=== PATIENT | male | born 1980 | race Caucasian/White ===

== ENCOUNTER 2016-12-10 11:29 | Emergency (ER) | payer MEDICARE, MEDICAID ==
[2016-12-10] MEDS ORDERED: INDOMETHACIN 50 MG CAPSULE PO ONE (11:43)
[2016-12-10] MEDS ORDERED: ONDANSETRON HCL 8 MG TABLET PO ONE (11:43)
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
[2016-12-10 12:00] LABS: ABSOLUTE BASOPHILS # (AUTO) 0.1 10^3/uL (0.0-0.2); ABSOLUTE EOSINOPHILS # (AUTO) 0.3 10^3/uL (0.0-0.6); ABSOLUTE LYMPHOCYTES (AUTO) 2.3 10^3/uL (0.5-4.7); ABSOLUTE MONOCYTES (AUTO) 0.8 10^3/uL (0.1-1.4); EOSINOPHILS % (AUTO) 3.4 % (0-6); HEMATOCRIT 42.4 % (37.9-51.0); HEMOGLOBIN 14.7 g/dL (13.5-17.0); HGB HCT DIFFERENCE 1.7; LYMPHOCYTES % (AUTO) 31.4 % (13-45); MEAN CORPUSCULAR HEMOGLOBIN 34.4 pg (27.0-33.4); MEAN CORPUSCULAR HGB CONC 34.6 g/dL (32.0-36.0); MEAN CORPUSCULAR VOLUME 100 fl (80-97); MONOCYTES % (AUTO) 10.1 % (3-13); RED BLOOD COUNT 4.26 10^6/uL (4.35-5.55); RED CELL DISTRIBUTION WIDTH 14.4 % (11.5-14.0); SEGMENTED NEUTROPHILS % (AUTO) 54.1 % (42-78); WHITE BLOOD COUNT 7.4 10^3/uL (4.0-10.5)
[2016-12-10 12:18] LABS: ALANINE AMINOTRANSFERASE 45 U/L (21-72); ALBUMIN 4.1 g/dL (3.5-5.0); ALKALINE PHOSPHATASE 86 U/L (38-126); ANION GAP 12 (5-19); ASPARTATE AMINO TRANSFERASE 25 U/L (17-59); BILIRUBIN,TOTAL 0.5 mg/dL (0.2-1.3); BLOOD UREA NITROGEN 10 mg/dL (7-20); CALCIUM 9.6 mg/dL (8.4-10.2); CARBON DIOXIDE 24 mmol/L (22-30); CHLORIDE 104 mmol/L (98-107); CREATININE RESULT 1.03 mg/dL (0.52-1.25); GLUCOSE 110 mg/dL (75-110); POTASSIUM 4.1 mmol/L (3.6-5.0); SODIUM 139.5 mmol/L (137-145)
[2016-12-10] MEDS ORDERED: HYDROMORPHONE HCL INJ/PF 2 MG/ML AMPULE IV ONE (12:26)
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
[2016-12-10] MEDS ORDERED: KETOROLAC TROMETHAMINE 60 MG/2 ML SDV IM ONE (12:58)
[2016-12-10 13:54] VITALS: BP 151/96
== END 2016-12-10 13:54 | disposition home or self-care (01) ==
LOC: ER 11:29
DX: M25.531 Pain in right wrist (principal); M79.89 Other specified soft tissue disorders; M79.601 Pain in right arm; F17.210 Nicotine dependence, cigarettes, uncomplicated
CPT/HCPCS: 99283; 96372; 36415; 84550; 85025; 80053; 73120; 73110; J1885; A9270 ×2; J3490; S0119

== ENCOUNTER 2017-07-17 18:08 | Emergency (ER) | payer MEDICARE, MEDICAID ==
[2017-07-17] MEDS ORDERED: KETOROLAC TROMETHAMINE INJ/PF 30 MG/1 ML SDV IV ONE (18:16)
[2017-07-17 18:41] LABS: ABSOLUTE BASOPHILS # (AUTO) 0.1 10^3/uL (0.0-0.2); ABSOLUTE EOSINOPHILS # (AUTO) 0.1 10^3/uL (0.0-0.6); ABSOLUTE LYMPHOCYTES (AUTO) 1.5 10^3/uL (0.5-4.7); ABSOLUTE MONOCYTES (AUTO) 0.8 10^3/uL (0.1-1.4); BASOPHILS % (AUTO) 0.8 % (0-2); EOSINOPHILS % (AUTO) 1.1 % (0-6); HEMATOCRIT 42.6 % (37.9-51.0); HEMOGLOBIN 15.4 g/dL (13.5-17.0); HGB HCT DIFFERENCE 3.6; LYMPHOCYTES % (AUTO) 11.9 % (13-45); MEAN CORPUSCULAR HEMOGLOBIN 35.4 pg (27.0-33.4); MEAN CORPUSCULAR HGB CONC 36.2 g/dL (32.0-36.0); MEAN CORPUSCULAR VOLUME 98 fl (80-97); MONOCYTES % (AUTO) 6.2 % (3-13); RED BLOOD COUNT 4.36 10^6/uL (4.35-5.55); RED CELL DISTRIBUTION WIDTH 13.4 % (11.5-14.0); WHITE BLOOD COUNT 12.6 10^3/uL (4.0-10.5)
[2017-07-17] MEDS: NORMAL SALINE 1000 ML 1,000 ML IV PRN ×2 (18:44→19:39)
[2017-07-17 19:04] LABS: ALANINE AMINOTRANSFERASE 63 U/L (21-72); ALBUMIN 4.4 g/dL (3.5-5.0); ALKALINE PHOSPHATASE 90 U/L (38-126); ANION GAP 12 (5-19); ASPARTATE AMINO TRANSFERASE 34 U/L (17-59); BILIRUBIN,DIRECT 0.4 mg/dL (0.0-0.4); BILIRUBIN,TOTAL 0.8 mg/dL (0.2-1.3); BLOOD UREA NITROGEN 15 mg/dL (7-20); CARBON DIOXIDE 26 mmol/L (22-30); CHLORIDE 99 mmol/L (98-107); CREATININE RESULT 0.88 mg/dL (0.52-1.25); GLUCOSE 125 mg/dL (75-110); LIPASE 90.8 U/L (23-300); POTASSIUM 4.3 mmol/L (3.6-5.0); SODIUM 137.3 mmol/L (137-145); TOTAL PROTEIN 7.1 g/dL (6.3-8.2); URIC ACID 10.9 mg/dL (3.5-8.5)
[2017-07-17] MEDS ORDERED: MORPHINE SULFATE 10 MG/ML INJ IV ONE (19:22)
[2017-07-17] MEDS ORDERED: ONDANSETRON HCL INJ/PF 4 MG/2 ML SDV IV ONE (19:22)
[2017-07-17 20:10] LABS: APPEARANCE,URINE CLEAR; BILIRUBIN,URINE NEGATIVE (NEGATIVE); GLUCOSE, URINE NEGATIVE (NEGATIVE); KETONES,URINE NEGATIVE (NEGATIVE); LEUKOCYTE ESTERASE,URINE NEGATIVE (NEGATIVE); NITRITE,URINE NEGATIVE (NEGATIVE); PROTEIN,URINE NEGATIVE (NEGATIVE); URINE SPECIFIC GRAVITY 1.023; UROBILINOGEN,URINE NEGATIVE mg/dL (<2.0)
--- NOTE | 2017-07-17 20:10 | RADIOLOGY REPORT (SQ) ---
EXAM DESCRIPTION: CHEST PA/LAT COMPLETED DATE/TIME: 07/17/2017 7:12 pm REASON FOR STUDY: fever COMPARISON: March 2016 EXAM PARAMETERS: NUMBER OF VIEWS: two views TECHNIQUE: Digital Frontal and Lateral radiographic views of the chest acquired. RADIATION DOSE: NA LIMITATIONS: none FINDINGS: LUNGS AND PLEURA: No opacities, masses or pneumothorax. No pleural effusion. MEDIASTINUM AND HILAR STRUCTURES: No masses or contour abnormalities. HEART AND VASCULAR STRUCTURES: Heart normal size. No evidence for failure. BONES: No acute findings. HARDWARE: None in the chest. OTHER: No other significant finding. IMPRESSION: NO SIGNIFICANT RADIOGRAPHIC FINDING IN THE CHEST. TECHNICAL DOCUMENTATION: JOB ID: [id number] [employer]- All Rights Reserved
[2017-07-17] MEDS ORDERED: PREDNISONE 20 MG TABLET PO ONE (20:23)
[2017-07-17] MEDS ORDERED: OXYCODONE-ACETAMINOPHEN 5-325 MG TABLET PO ONE (20:23)
[2017-07-17 20:33] LABS: URINE BARBITURATES SCREEN NEGATIVE; URINE METHADONE SCREEN NEGATIVE; URINE OPIATES LOW UNCONFIRMED POSITIVE; URINE PHENCYCLIDINE SCREEN NEGATIVE
[2017-07-17 21:01] VITALS: BP 139/77
[2017-07-17] MEDS ORDERED: HYDROCODONE/ACETAMINOPHEN 5-325 MG 6 TAB/DSPK PO PRN (21:15)
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
== END 2017-07-17 21:18 | disposition home or self-care (01) ==
LOC: ER 18:08
DX: M10.9 Gout, unspecified (principal); R50.9 Fever, unspecified; I10 Essential (primary) hypertension; F17.200 Nicotine dependence, unspecified, uncomplicated; Z88.8 Allergy status to other drugs, medicaments and biological substances; Z88.1 Allergy status to other antibiotic agents
CPT/HCPCS: 99284; 96361; 96374; 96375; 36415; 87040; 83690; 84550; 85025; 80053; 81001; 80307; 83605; 71020; J1885; J2270; A9270 ×2; J2405; J7030; J7512

== ENCOUNTER → 2017-10-03 | Outpatient (CLI) | payer MEDICARE, MEDICAID ==
[2017-10-03 09:20] LABS: ABSOLUTE EOSINOPHILS # (AUTO) 0.2 10^3/uL (0.0-0.6); ABSOLUTE LYMPHOCYTES (AUTO) 1.5 10^3/uL (0.5-4.7); ABSOLUTE MONOCYTES (AUTO) 0.5 10^3/uL (0.1-1.4); ABSOLUTE NEUT (AUTO) 4.3 10^3/uL (1.7-8.2); BASOPHILS % (AUTO) 0.6 % (0-2); EOSINOPHILS % (AUTO) 3.3 % (0-6); HEMATOCRIT 43.6 % (37.9-51.0); HEMOGLOBIN 15.6 g/dL (13.5-17.0); HGB HCT DIFFERENCE 3.2; LYMPHOCYTES % (AUTO) 23.1 % (13-45); MEAN CORPUSCULAR HEMOGLOBIN 34.9 pg (27.0-33.4); MEAN CORPUSCULAR HGB CONC 35.9 g/dL (32.0-36.0); MEAN CORPUSCULAR VOLUME 97 fl (80-97); MONOCYTES % (AUTO) 7.1 % (3-13); RED BLOOD COUNT 4.48 10^6/uL (4.35-5.55); RED CELL DISTRIBUTION WIDTH 14.4 % (11.5-14.0); SEGMENTED NEUTROPHILS % (AUTO) 65.9 % (42-78); WHITE BLOOD COUNT 6.5 10^3/uL (4.0-10.5)
[2017-10-03 09:35] LABS: ALANINE AMINOTRANSFERASE 63 U/L (21-72); ALBUMIN 4.2 g/dL (3.5-5.0); ALKALINE PHOSPHATASE 85 U/L (38-126); ANION GAP 12 (5-19); ASPARTATE AMINO TRANSFERASE 30 U/L (17-59); BILIRUBIN,DIRECT 0.5 mg/dL (0.0-0.4); BILIRUBIN,TOTAL 0.8 mg/dL (0.2-1.3); BLOOD UREA NITROGEN 12 mg/dL (7-20); CALCIUM 9.9 mg/dL (8.4-10.2); CARBON DIOXIDE 28 mmol/L (22-30); CHLORIDE 95 mmol/L (98-107); CHOLESTEROL 219.54 mg/dL (0-200); CREATININE RESULT 0.91 mg/dL (0.52-1.25); Direct HDL 38 mg/dL (>40); GLUCOSE 98 mg/dL (75-110); POTASSIUM 4.3 mmol/L (3.6-5.0); SODIUM 134.7 mmol/L (137-145); TRIGLYCERIDES 313 mg/dL (<150)
[2017-10-03 09:46] LABS: DIRECT LDL 138 mg/dL (<100)
[2017-10-03 09:48] LABS: VLDL CHOLESTEROL 62.6 mg/dL (10-31)
== END ==
LOC: OD 07:59
PROVIDERS: ATTEND Nurse Practitioner Psychiatric/Mental Health
DX: F31.32 Bipolar disorder, current episode depressed, moderate (principal)
CPT/HCPCS: 36415; 80053; 80061; 83036; 84443; 85025

== ENCOUNTER 2018-04-14 07:38 | Emergency (ER) | payer MEDICARE, MEDICAID ==
[2018-04-14] MEDS ORDERED: OXYCODONE HCL IR 5 MG TABLET PO ONE (08:30)
[2018-04-14] MEDS ORDERED: PREDNISONE 20 MG TABLET PO ONE (08:30)
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
[2018-04-14 09:48] VITALS: BP 138/94
== END 2018-04-14 09:46 | disposition home or self-care (01) ==
LOC: ER 07:38
DX: M10.9 Gout, unspecified (principal); M79.671 Pain in right foot; F17.200 Nicotine dependence, unspecified, uncomplicated; I10 Essential (primary) hypertension
CPT/HCPCS: 99283; 36415; 84550; A9270

== ENCOUNTER → 2018-10-15 | Outpatient (CLI) | payer MEDICARE, MEDICAID ==
[2018-10-15 08:45] LABS: ABSOLUTE BASOPHILS # (AUTO) 0.1 10^3/uL (0.0-0.2); ABSOLUTE EOSINOPHILS # (AUTO) 0.3 10^3/uL (0.0-0.6); ABSOLUTE LYMPHOCYTES (AUTO) 2.1 10^3/uL (0.5-4.7); ABSOLUTE MONOCYTES (AUTO) 0.4 10^3/uL (0.1-1.4); ABSOLUTE NEUT (AUTO) 3.7 10^3/uL (1.7-8.2); EOSINOPHILS % (AUTO) 4.7 % (0-6); HEMATOCRIT 43.5 % (37.9-51.0); LYMPHOCYTES % (AUTO) 31.8 % (13-45); MEAN CORPUSCULAR HEMOGLOBIN 34.2 pg (27.0-33.4); MEAN CORPUSCULAR HGB CONC 34.4 g/dL (32.0-36.0); MEAN CORPUSCULAR VOLUME 99 fl (80-97); PLATELET COUNT 216 10^3/uL (150-450); RED BLOOD COUNT 4.38 10^6/uL (4.35-5.55); RED CELL DISTRIBUTION WIDTH 14.1 % (11.5-14.0); SEGMENTED NEUTROPHILS % (AUTO) 56.5 % (42-78); TOTAL CELLS COUNTED % (AUTO) 100 %; WHITE BLOOD COUNT 6.6 10^3/uL (4.0-10.5)
[2018-10-15 09:22] LABS: ALANINE AMINOTRANSFERASE 36 U/L (21-72); ALBUMIN 3.9 g/dL (3.5-5.0); ALKALINE PHOSPHATASE 79 U/L (38-126); ANION GAP 7 (5-19); ASPARTATE AMINO TRANSFERASE 28 U/L (17-59); BILIRUBIN,DIRECT 0.4 mg/dL (0.0-0.4); BILIRUBIN,TOTAL 0.5 mg/dL (0.2-1.3); BLOOD UREA NITROGEN 10 mg/dL (7-20); CALCIUM 9.3 mg/dL (8.4-10.2); CARBON DIOXIDE 29 mmol/L (22-30); CHLORIDE 104 mmol/L (98-107); CHOLESTEROL 182.15 mg/dL (0-200); GLUCOSE 111 mg/dL (75-110); POTASSIUM 4.2 mmol/L (3.6-5.0); SODIUM 140.2 mmol/L (137-145); TOTAL PROTEIN 6.6 g/dL (6.3-8.2); TRIGLYCERIDES 265 mg/dL (<150)
[2018-10-15 09:40] LABS: DIRECT LDL 126 mg/dL (<100)
== END ==
LOC: OD 08:05
PROVIDERS: ATTEND Nurse Practitioner Psychiatric/Mental Health
DX: F31.32 Bipolar disorder, current episode depressed, moderate (principal); Z79.899 Other long term (current) drug therapy
CPT/HCPCS: 36415; 80053; 80061; 83036; 84443; 85025

== ENCOUNTER 2018-10-19 10:51 | Emergency (ER) | payer MEDICARE, MEDICAID ==
[2018-10-19] MEDS ORDERED: ACETAMINOPHEN 325 MG TABLET PO ONE (11:20)
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
--- NOTE | 2018-10-19 11:52 | RADIOLOGY REPORT (SQ) ---
EXAM DESCRIPTION: FOOT LEFT COMPLETE COMPLETED DATE/TIME: 10/19/2018 11:41 am REASON FOR STUDY: pain and swelling yesterday tripped over toy COMPARISON: Left ankle films same date NUMBER OF VIEWS: Three views. TECHNIQUE: AP, lateral and oblique radiographic images acquired of the left foot. LIMITATIONS: None. FINDINGS: MINERALIZATION: Normal. BONES: No acute fracture or dislocation. No worrisome bone lesions. JOINTS: Small tibiotalar joint effusion SOFT TISSUES: No soft tissue swelling. No foreign body. On the lateral view, a deep crack in the sk in over the dorsal heel is present OTHER: No other significant finding. IMPRESSION: No acute fracture or malalignment TECHNICAL DOCUMENTATION: JOB ID: [id number] [employer]- All Rights Reserved Reading location - IP/workstation name: [email or web address]
[2018-10-19 12:17] VITALS: BP 152/101
== END 2018-10-19 12:18 | disposition home or self-care (01) ==
LOC: ER 10:51
PROC: 2W3RX1Z Immobilization of Left Lower Leg using Splint (ICD-10-PCS; principal; 2018-10-19)
DX: S93.402A Sprain of unspecified ligament of left ankle, initial encounter (principal); S99.912A Unspecified injury of left ankle, initial encounter; M79.89 Other specified soft tissue disorders; M25.572 Pain in left ankle and joints of left foot; W22.8XXA Striking against or struck by other objects, initial encounter; F17.210 Nicotine dependence, cigarettes, uncomplicated; I10 Essential (primary) hypertension
CPT/HCPCS: 99406; 99284; 73610; 73630; 29515; L1902; A9270

== ENCOUNTER 2018-12-10 07:16 | Emergency (ER) | payer MEDICARE, MEDICAID ==
[2018-12-10 08:49] LABS: ABSOLUTE BASOPHILS # (AUTO) 0.1 10^3/uL (0.0-0.2); ABSOLUTE EOSINOPHILS # (AUTO) 0.2 10^3/uL (0.0-0.6); ABSOLUTE LYMPHOCYTES (AUTO) 2.4 10^3/uL (0.5-4.7); ABSOLUTE MONOCYTES (AUTO) 0.5 10^3/uL (0.1-1.4); ABSOLUTE NEUT (AUTO) 4.5 10^3/uL (1.7-8.2); BASOPHILS % (AUTO) 0.8 % (0-2); HEMATOCRIT 42.3 % (37.9-51.0); HEMOGLOBIN 14.7 g/dL (13.5-17.0); LYMPHOCYTES % (AUTO) 30.9 % (13-45); MEAN CORPUSCULAR HEMOGLOBIN 33.6 pg (27.0-33.4); MEAN CORPUSCULAR HGB CONC 34.7 g/dL (32.0-36.0); MEAN CORPUSCULAR VOLUME 97 fl (80-97); MONOCYTES % (AUTO) 6.7 % (3-13); PLATELET COUNT 193 10^3/uL (150-450); RED BLOOD COUNT 4.36 10^6/uL (4.35-5.55); RED CELL DISTRIBUTION WIDTH 14.8 % (11.5-14.0); SEGMENTED NEUTROPHILS % (AUTO) 58.6 % (42-78); TOTAL CELLS COUNTED % (AUTO) 100 %; WHITE BLOOD COUNT 7.7 10^3/uL (4.0-10.5)
[2018-12-10] MEDS ORDERED: NORMAL SALINE 1000 ML 1,000 ML IV ONE (08:49)
[2018-12-10 09:32] LABS: APPEARANCE,URINE CLEAR; BILIRUBIN,URINE NEGATIVE (NEGATIVE); COLOR,URINE YELLOW; GLUCOSE, URINE NEGATIVE (NEGATIVE); KETONES,URINE NEGATIVE (NEGATIVE); LEUKOCYTE ESTERASE,URINE NEGATIVE (NEGATIVE); NITRITE,URINE NEGATIVE (NEGATIVE); PROTEIN,URINE NEGATIVE (NEGATIVE); URINE SPECIFIC GRAVITY 1.021
[2018-12-10 10:11] LABS: ALANINE AMINOTRANSFERASE 89 U/L (21-72); ALBUMIN 3.8 g/dL (3.5-5.0); ALKALINE PHOSPHATASE 67 U/L (38-126); ANION GAP 7 (5-19); ASPARTATE AMINO TRANSFERASE 45 U/L (17-59); BILIRUBIN,DIRECT 0.2 mg/dL (0.0-0.4); BILIRUBIN,TOTAL 0.6 mg/dL (0.2-1.3); BLOOD UREA NITROGEN 14 mg/dL (7-20); CARBON DIOXIDE 29 mmol/L (22-30); CHLORIDE 103 mmol/L (98-107); GLUCOSE 95 mg/dL (75-110); POTASSIUM 4.2 mmol/L (3.6-5.0); SODIUM 138.9 mmol/L (137-145); TOTAL PROTEIN 5.8 g/dL (6.3-8.2)
[2018-12-10 11:11] VITALS: BP 139/93
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
== END 2018-12-10 11:13 | disposition home or self-care (01) ==
LOC: ER 07:16
DX: R19.7 Diarrhea, unspecified (principal); R10.9 Unspecified abdominal pain; F17.210 Nicotine dependence, cigarettes, uncomplicated; I10 Essential (primary) hypertension
CPT/HCPCS: 99284; 36415; 87045; 89055; 87205; 85025; 80053; 81001; 87493; J7030; 96360

== ENCOUNTER 2018-12-23 19:48 | Inpatient (IN) | payer MEDICARE, MEDICAID ==
[2018-12-23] MEDS ORDERED: RINGERS SOLUTION,LACTATED 1,000 ML IV ONE (20:21)
[2018-12-23] MEDS ORDERED: ONDANSETRON HCL INJ/PF 4 MG/2 ML SDV IV ONE (20:21)
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
[2018-12-23 20:50] LABS: ABSOLUTE EOSINOPHILS # (AUTO) 0.1 10^3/uL (0.0-0.6); ABSOLUTE LYMPHOCYTES (AUTO) 0.7 10^3/uL (0.5-4.7); ABSOLUTE MONOCYTES (AUTO) 0.5 10^3/uL (0.1-1.4); BASOPHILS % (AUTO) 0.4 % (0-2); EOSINOPHILS % (AUTO) 0.7 % (0-6); HEMATOCRIT 42.3 % (37.9-51.0); HEMOGLOBIN 15.4 g/dL (13.5-17.0); LYMPHOCYTES % (AUTO) 8.8 % (13-45); MEAN CORPUSCULAR HEMOGLOBIN 34.5 pg (27.0-33.4); MEAN CORPUSCULAR HGB CONC 36.5 g/dL (32.0-36.0); MEAN CORPUSCULAR VOLUME 95 fl (80-97); MONOCYTES % (AUTO) 5.5 % (3-13); PLATELET COUNT 219 10^3/uL (150-450); RED BLOOD COUNT 4.47 10^6/uL (4.35-5.55); RED CELL DISTRIBUTION WIDTH 14.7 % (11.5-14.0); SEGMENTED NEUTROPHILS % (AUTO) 84.6 % (42-78); TOTAL CELLS COUNTED % (AUTO) 100 %; WHITE BLOOD COUNT 8.2 10^3/uL (4.0-10.5)
[2018-12-23 21:01] LABS: ALANINE AMINOTRANSFERASE 71 U/L (21-72); ALBUMIN 4.5 g/dL (3.5-5.0); ALKALINE PHOSPHATASE 98 U/L (38-126); ANION GAP 11 (5-19); ASPARTATE AMINO TRANSFERASE 61 U/L (17-59); BILIRUBIN,DIRECT 0.2 mg/dL (0.0-0.4); BILIRUBIN,TOTAL 0.7 mg/dL (0.2-1.3); BLOOD UREA NITROGEN 14 mg/dL (7-20); CALCIUM 9.8 mg/dL (8.4-10.2); CARBON DIOXIDE 27 mmol/L (22-30); CHLORIDE 91 mmol/L (98-107); GLUCOSE 116 mg/dL (75-110); LIPASE 126.4 U/L (23-300); POTASSIUM 4.5 mmol/L (3.6-5.0); SODIUM 128.8 mmol/L (137-145)
[2018-12-23 21:09] LABS: APPEARANCE,URINE CLEAR; BILIRUBIN,URINE MODERATE (NEGATIVE); COLOR,URINE AMBER; GLUCOSE, URINE NEGATIVE (NEGATIVE); KETONES,URINE NEGATIVE (NEGATIVE); LEUKOCYTE ESTERASE,URINE NEGATIVE (NEGATIVE); NITRITE,URINE NEGATIVE (NEGATIVE); PROTEIN,URINE 100 mg/dL (NEGATIVE); URINE SPECIFIC GRAVITY 1.028
[2018-12-23] MEDS ORDERED: CIPROFLOXACIN HCL 500 MG TABLET PO ONE (21:34)
[2018-12-23] MEDS ORDERED: NORMAL SALINE 1000 ML 1,000 ML IV ONE (21:34)
[2018-12-23 22:21] LABS: ANION GAP 7 (5-19); BLOOD UREA NITROGEN 13 mg/dL (7-20); CALCIUM 9.1 mg/dL (8.4-10.2); CARBON DIOXIDE 29 mmol/L (22-30); CHLORIDE 93 mmol/L (98-107); GLUCOSE 111 mg/dL (75-110); POTASSIUM 4.2 mmol/L (3.6-5.0); SODIUM 128.5 mmol/L (137-145)
[2018-12-23] MEDS ORDERED: PROCHLORPERAZINE EDISYLATE INJ 10 MG/2 ML VIAL IV ONE (22:28)
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
[2018-12-23] MEDS ORDERED: LABETALOL HCL INJ 20 MG/4 ML DISP.SYRIN IV PRN (23:08)
[2018-12-23] MEDS ORDERED: NICOTINE 21 MG/24 HR PATCH.TD24 TD PRN (23:08)
[2018-12-23] MEDS ORDERED: CHLORPROMAZINE HCL INJ 25 MG/1 ML AMPULE IV PRN (23:08)
[2018-12-23] MEDS ORDERED: ACETAMINOPHEN 650 MG SUPP.RECT PR PRN (23:08)
[2018-12-23] MEDS ORDERED: FAMOTIDINE INJ/PF 20 MG/2 ML SDV IV ONE (23:30)
[2018-12-24] MEDS ORDERED: FAMOTIDINE INJ/PF 20 MG/2 ML SDV IV ONE (01:39)
[2018-12-24] MEDS: MORPHINE SULFATE 10 MG/ML INJ IV PRN ×7 (01:42→22:08)
[2018-12-24] MEDS: DEXTROSE 5%-LACTATED RINGERS 1,000 ML IV PRN ×2 (01:50→16:15)
[2018-12-24 02:59] LABS: APPEARANCE,URINE CLEAR; BILIRUBIN,URINE NEGATIVE (NEGATIVE); COLOR,URINE YELLOW; GLUCOSE, URINE NEGATIVE (NEGATIVE); KETONES,URINE NEGATIVE (NEGATIVE); LEUKOCYTE ESTERASE,URINE NEGATIVE (NEGATIVE); NITRITE,URINE NEGATIVE (NEGATIVE); PROTEIN,URINE NEGATIVE (NEGATIVE); URINE SPECIFIC GRAVITY 1.011
[2018-12-24 04:29] LABS: URINE AMPHETAMINES SCREEN NEGATIVE; URINE BARBITURATES SCREEN NEGATIVE; URINE COCAINE SCREEN NEGATIVE; URINE MARIJUANA (THC) SCREEN NEGATIVE; URINE METHADONE SCREEN NEGATIVE; URINE PHENCYCLIDINE SCREEN NEGATIVE
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
[2018-12-24 04:37] LABS: URINE BENZODIAZEPINES SCREEN UNCONFIRMED POSITIVE
[2018-12-24] MEDS: HEPARIN SOD (PORCINE) 5,000 UNIT/ML 1 ML SYRINGE SUBCUT SCH ×3 (06:20→22:11)
[2018-12-24 08:10] LABS: ABSOLUTE EOSINOPHILS # (AUTO) 0.1 10^3/uL (0.0-0.6); ABSOLUTE LYMPHOCYTES (AUTO) 1.1 10^3/uL (0.5-4.7); ABSOLUTE MONOCYTES (AUTO) 0.4 10^3/uL (0.1-1.4); ABSOLUTE NEUT (AUTO) 2.9 10^3/uL (1.7-8.2); BASOPHILS % (AUTO) 0.4 % (0-2); EOSINOPHILS % (AUTO) 2.8 % (0-6); HEMATOCRIT 33.6 % (37.9-51.0); LYMPHOCYTES % (AUTO) 23.1 % (13-45); MEAN CORPUSCULAR HEMOGLOBIN 33.9 pg (27.0-33.4); MEAN CORPUSCULAR HGB CONC 35.6 g/dL (32.0-36.0); MEAN CORPUSCULAR VOLUME 95 fl (80-97); MONOCYTES % (AUTO) 9.6 % (3-13); PLATELET COUNT 153 10^3/uL (150-450); RED BLOOD COUNT 3.53 10^6/uL (4.35-5.55); RED CELL DISTRIBUTION WIDTH 14.8 % (11.5-14.0); SEGMENTED NEUTROPHILS % (AUTO) 64.1 % (42-78); TOTAL CELLS COUNTED % (AUTO) 100 %; WHITE BLOOD COUNT 4.6 10^3/uL (4.0-10.5)
[2018-12-24 08:28] LABS: ALANINE AMINOTRANSFERASE 50 U/L (21-72); ALBUMIN 3.3 g/dL (3.5-5.0); ALKALINE PHOSPHATASE 65 U/L (38-126); ANION GAP 8 (5-19); ASPARTATE AMINO TRANSFERASE 32 U/L (17-59); BILIRUBIN,DIRECT 0.3 mg/dL (0.0-0.4); BILIRUBIN,TOTAL 0.5 mg/dL (0.2-1.3); BLOOD UREA NITROGEN 10 mg/dL (7-20); CALCIUM 8.5 mg/dL (8.4-10.2); CARBON DIOXIDE 29 mmol/L (22-30); CHLORIDE 94 mmol/L (98-107); GLUCOSE 98 mg/dL (75-110); LIPASE 58.4 U/L (23-300); PHOSPHORUS 3.2 mg/dL (2.5-4.5); POTASSIUM 4.1 mmol/L (3.6-5.0); SODIUM 130.6 mmol/L (137-145); TOTAL PROTEIN 5.3 g/dL (6.3-8.2)
[2018-12-24 08:32] LABS: AMYLASE < 30 U/L (30-110)
[2018-12-24] MEDS: FAMOTIDINE INJ/PF 20 MG/2 ML SDV IV SCH ×2 (09:50→22:06)
[2018-12-24] MEDS: CIPROFLOXACIN 400 MG/D5W RTU 400 MG/200 ML RTUPB IV SCH ×2 (10:53→22:07)
[2018-12-24] MEDS: METRONIDAZOLE 500 MG/NS RTU 500 MG/100 ML RTUPB IV SCH ×2 (12:26→19:54)
--- NOTE | 2018-12-24 16:21 | PDOC PROGRESS REPORT ---
Subjective Progress Note for:: 12/24/18 Subjective:: This is 38 years old male patient who presented with chief complaint of frequent watery diarrhea for the last 3 months. Patient denied any similar illness in the family. He also denies drinking well water. His stool and blood culture are negative. His blood work shows work shows hyponatremia of sodium 128. His past medical history significant for hypertension, obesity Legg- Perthes disease. This morning I seen patient resting in bed he complains of abdominal pain and still has watery diarrhea. Reason For Visit: INTRACTABLE DIARRHEA WITH VOMITING Physical Exam Vital Signs: Temp Pulse Resp BP Pulse Ox 97.5 F 85 16 136/82 H 97 12/24/18 15:33 12/24/18 15:33 12/24/18 15:33 12/24/18 15:33 12/24/18 15:33 Intake & Output 12/23/18 12/24/18 12/25/18 06:59 06:59 06:59 Intake Total 2463 780 Balance 2463 780 Weight 110 kg General appearance: PRESENT: obese Head exam: PRESENT: atraumatic Mouth exam: PRESENT: moist Neck exam: ABSENT: carotid bruit, JVD, lymphadenopathy, thyromegaly Respiratory exam: PRESENT: clear to auscultation omer. ABSENT: rales, rhonchi, wheezes Cardiovascular exam: PRESENT: RRR. ABSENT: diastolic murmur, rubs, systolic murmur GI/Abdominal exam: PRESENT: normal bowel sounds, soft. ABSENT: distended, guarding, mass, organolmegaly, rebound, tenderness Neurological exam: PRESENT: alert, awake, oriented to time, reflexes normal Results Laboratory Results: 12/24/18 07:20 12/24/18 07:20 12/23/18 12/23/18 12/23/18 20:25 20:30 20:30 WBC 8.2 RBC 4.47 Hgb 15.4 Hct 42.3 MCV 95 MCH 34.5 H MCHC 36.5 H RDW 14.7 H Plt Count 219 Seg Neutrophils % 84.6 H Lymphocytes % 8.8 L Monocytes % 5.5 Eosinophils % 0.7 Basophils % 0.4 Absolute Neutrophils 7.0 Absolute Lymphocytes 0.7 Absolute Monocytes 0.5 Absolute Eosinophils 0.1 Absolute Basophils 0.0 Sodium 128.8 L Potassium 4.5 Chloride 91 L Carbon Dioxide 27 Anion Gap 11 BUN 14 Creatinine 0.85 Est GFR ( Amer) > 60 Est GFR (Non-Af Amer) > 60 Glucose 116 H Calcium 9.8 Phosphorus Magnesium Total Bilirubin 0.7 AST 61 H ALT 71 Alkaline Phosphatase 98 Total Protein 7.0 Albumin 4.5 Amylase Lipase 126.4 Free T4 Urine Color LINSEY Urine Appearance CLEAR Urine pH 8.0 Ur Specific [place] 1.028 Urine Protein 100 H Urine Glucose (UA) NEGATIVE Urine Ketones NEGATIVE Urine Blood NEGATIVE Urine Nitrite NEGATIVE Ur Leukocyte Esterase NEGATIVE Urine WBC (Auto) 1 Urine RBC (Auto) 1 Stool for White Cells 12/23/18 12/23/18 12/24/18 22:00 22:40 02:40 WBC RBC Hgb Hct MCV MCH MCHC RDW Plt Count Seg Neutrophils % Lymphocytes % Monocytes % Eosinophils % Basophils % Absolute Neutrophils Absolute Lymphocytes Absolute Monocytes Absolute Eosinophils Absolute Basophils Sodium 128.5 L Potassium 4.2 Chloride 93 L Carbon Dioxide 29 Anion Gap 7 BUN 13 Creatinine 0.76 Est GFR ( Amer) > 60 Est GFR (Non-Af Amer) > 60 Glucose 111 H Calcium 9.1 Phosphorus Magnesium Total Bilirubin AST ALT Alkaline Phosphatase Total Protein Albumin Amylase Lipase Free T4 Urine Color YELLOW Urine Appearance CLEAR Urine pH 9.0 Ur Specific [place] 1.011 Urine Protein NEGATIVE Urine Glucose (UA) NEGATIVE Urine Ketones NEGATIVE Urine Blood NEGATIVE Urine Nitrite NEGATIVE Ur Leukocyte Esterase NEGATIVE Urine WBC (Auto) 0 Urine RBC (Auto) 1 Stool for White Cells NO WBCs SEEN 12/24/18 12/24/18 12/24/18 07:20 07:20 07:20 WBC 4.6 RBC 3.53 L Hgb 12.0 L D Hct 33.6 L MCV 95 MCH 33.9 H MCHC 35.6 RDW 14.8 H Plt Count 153 Seg Neutrophils % 64.1 Lymphocytes % 23.1 Monocytes % 9.6 Eosinophils % 2.8 Basophils % 0.4 Absolute Neutrophils 2.9 Absolute Lymphocytes 1.1 Absolute Monocytes 0.4 Absolute Eosinophils 0.1 Absolute Basophils 0.0 Sodium 130.6 L Potassium 4.1 Chloride 94 L Carbon Dioxide 29 Anion Gap 8 BUN 10 Creatinine 0.80 Est GFR ( Amer) > 60 Est GFR (Non-Af Amer) > 60 Glucose 98 Calcium 8.5 Phosphorus 3.2 Magnesium 1.5 L Total Bilirubin 0.5 AST 32 ALT 50 Alkaline Phosphatase 65 Total Protein 5.3 L Albumin 3.3 L Amylase < 30 L Lipase 58.4 Free T4 0.96 Urine Color Urine Appearance Urine pH Ur Specific [place] Urine Protein Urine Glucose (UA) Urine Ketones Urine Blood Urine Nitrite Ur Leukocyte Esterase Urine WBC (Auto) Urine RBC (Auto) Stool for White Cells Assessment & Plan - Diagnosis (1) Intractable diarrhea Is this a current diagnosis for this admission?: Yes Plan: Patient is being hydrated cautiously and I started him also empirically on Flagyl and Cipro. (2) Hypertension Qualifiers: Hypertension type: essential hypertension Qualified Code(s): I10 - Essential (primary) hypertension Is this a current diagnosis for this admission?: Yes Plan: Continue home medication (3) Hyponatremia Is this a current diagnosis for this admission?: Yes Plan: Improving (4) Obesity Qualifiers: Body mass index: BMI 35.0-35.9 Is this a current diagnosis for this admission?: Yes Plan: Patient advised to do lifestyle modification. 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
[2018-12-24] MEDS: ALBUTEROL SULFATE 0.083% NEB 2.5 MG/3 ML AMPUL NEB PRN (21:24)
[2018-12-25] MEDS: MORPHINE SULFATE 10 MG/ML INJ IV PRN ×3 (00:46→08:02)
[2018-12-25] MEDS: METRONIDAZOLE 500 MG/NS RTU 500 MG/100 ML RTUPB IV SCH ×2 (00:47→05:53)
[2018-12-25] MEDS: DEXTROSE 5%-LACTATED RINGERS 1,000 ML IV PRN (04:20)
[2018-12-25] MEDS: ALBUTEROL SULFATE 0.083% NEB 2.5 MG/3 ML AMPUL NEB PRN (04:58)
[2018-12-25] MEDS: HEPARIN SOD (PORCINE) 5,000 UNIT/ML 1 ML SYRINGE SUBCUT SCH (06:02)
[2018-12-25 08:35] LABS: ABSOLUTE EOSINOPHILS # (AUTO) 0.2 10^3/uL (0.0-0.6); ABSOLUTE LYMPHOCYTES (AUTO) 1.1 10^3/uL (0.5-4.7); ABSOLUTE MONOCYTES (AUTO) 0.4 10^3/uL (0.1-1.4); ABSOLUTE NEUT (AUTO) 2.8 10^3/uL (1.7-8.2); BASOPHILS % (AUTO) 0.3 % (0-2); HEMATOCRIT 34.5 % (37.9-51.0); HEMOGLOBIN 12.4 g/dL (13.5-17.0); LYMPHOCYTES % (AUTO) 25.3 % (13-45); MEAN CORPUSCULAR HEMOGLOBIN 34.3 pg (27.0-33.4); MEAN CORPUSCULAR VOLUME 96 fl (80-97); MONOCYTES % (AUTO) 8.9 % (3-13); PLATELET COUNT 158 10^3/uL (150-450); RED BLOOD COUNT 3.61 10^6/uL (4.35-5.55); RED CELL DISTRIBUTION WIDTH 14.6 % (11.5-14.0); SEGMENTED NEUTROPHILS % (AUTO) 61.5 % (42-78); TOTAL CELLS COUNTED % (AUTO) 100 %; WHITE BLOOD COUNT 4.5 10^3/uL (4.0-10.5)
[2018-12-25 08:59] LABS: ANION GAP 9 (5-19); BLOOD UREA NITROGEN 4 mg/dL (7-20); CALCIUM 9.1 mg/dL (8.4-10.2); CARBON DIOXIDE 29 mmol/L (22-30); CHLORIDE 97 mmol/L (98-107); GLUCOSE 95 mg/dL (75-110); POTASSIUM 4.2 mmol/L (3.6-5.0); SODIUM 134.9 mmol/L (137-145)
[2018-12-25] MEDS ORDERED: LIDOCAINE 5% (700 MG) TRANSDERMAL ADH..PATCH TP SCH (10:00)
[2018-12-25] MEDS ORDERED: FONDAPARINUX SODIUM INJ 2.5 MG/0.5 ML DISP.SYRIN SUBCUT SCH (10:30)
[2018-12-25] MEDS: CIPROFLOXACIN 400 MG/D5W RTU 400 MG/200 ML RTUPB IV SCH (10:33)
[2018-12-25] MEDS: FAMOTIDINE INJ/PF 20 MG/2 ML SDV IV SCH (10:33)
[2018-12-25 10:54] VITALS: BP 152/90
--- NOTE | 2018-12-25 12:59 | PDOC DISCHARGE SUMMARY ---
General - Admit/Disc Date/PCP Admission Date/Primary Care Provider: 12/23/18 22:57 LANIE WEBSTER MD Discharge Date: 12/25/18 - Discharge Diagnosis (1) Chronic diarrhea Is this a current diagnosis for this admission?: Yes (2) Chronic pain Is this a current diagnosis for this admission?: Yes - Additional Information Resuscitation Status: Full Code Discharge Diet: As Tolerated Home Medications: Albuterol Sulfate [Ventolin Hfa 8 gm Mdi (1 Mdi/ER Disp)] 2 puff IH Q4HP PRN 12/24/18 Amlodipine Besylate [Norvasc 5 mg Tablet] 5 mg PO DAILY 12/24/18 Diazepam [Valium] 5 mg PO Q12HP PRN 12/24/18 Esomeprazole Mag Trihydrate [Nexium] 40 mg PO DAILY 12/24/18 Lisinopril/Hydrochlorothiazide [Lisinopril-Hctz 20-12.5 mg Tab] 1 each PO DAILY 12/24/18 Lovastatin [Mevacor] 20 mg PO DAILY 12/24/18 Methylphenidate HCl [Ritalin] 20 mg PO TID 12/24/18 Oxcarbazepine [Trileptal] 300 mg PO Q12 12/24/18 Paroxetine HCl [Paxil] 60 mg PO QAM 12/24/18 Trazodone HCl [Desyrel] 100 mg PO QHS 12/24/18 History of Present Illness History of Present Illness: Admitting hospitalist's H&P: JUDE HI is a 38 year old male who presents the emergency room with a 2-3 month history of diarrhea. He endorses diarrhea every day with 10-20 watery stools accompanied by minimal abdominal cramping for the last 2-3 months. Today he began having nausea with vomiting with continued diarrhea and since he was unable to keep any oral intake down he decided it was time to come to the emergency room. He also admits to associated symptoms of fever and a constant, severe, throbbing, global headache. He denies prior similar problems with diarrhea and he has not identified any aggravating or ameliorating factors for his diarrhea. In the emergency room he was found to have a low-grade fever of 100.9 F and a mild hyponatremia. Due to his inability to keep down oral fluids it was felt the patient should be admitted to the hospital for further evaluation and possible gastroenterology consultation to evaluate his diarrhea. Hospital Course Hospital Course: Mr. Hi is a 38 yr old male who was admitted due to chronic diarrhea which has been going for the past 2-3 months. He was started on IV fluids. He had C diff testing done which came back negative. Stool culture was also unremarkable. On day of discharge, he had a regular, non watery BM. He does report of chronic right hip pain and chronic n stephen and back pain. 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 He says he is following up with ortho for a possible hip replacement. He says he was also supposed to see the [facility] for his chronic pain. He is not currently on opiates but was on Percocet before. Upon encounter today, he appears comfortable and not in distress but says the morphine is not helping with the pain. Recommended a trial of lidocaine patch to see if he gets relief from it. He was amenable to this plan initially during rounds. Called by RN later and notified that patient "walked out" because he did not want to try the lidocaine and his mother is here to pick him up. He was given a confirmed appt with gastroenterology for further outpatient work up of his chronic intermittent diarrhea. He was also given a confirmed appt with the [place] pain [facility]. Physical Exam Vital Signs: Temp Pulse Resp BP Pulse Ox 97.8 F 71 17 152/90 H 97 12/25/18 10:53 12/25/18 10:53 12/25/18 10:53 12/25/18 10:53 12/25/18 10:53 Intake & Output 12/24/18 12/25/18 12/26/18 06:59 06:59 06:59 Intake Total 3000 4860 1600 Output Total 2435 Balance 3000 2425 1600 Weight 242 lb 8.136 oz 243 lb 9.773 oz General appearance: PRESENT: no acute distress, well-developed, well-nourished Head exam: PRESENT: atraumatic, normocephalic Eye exam: PRESENT: conjunctiva pink, EOMI, PERRLA. ABSENT: scleral icterus Ear exam: PRESENT: normal external ear exam Mouth exam: PRESENT: moist, tongue midline Neck exam: ABSENT: carotid bruit, JVD, lymphadenopathy, thyromegaly Respiratory exam: PRESENT: clear to auscultation omer. ABSENT: rales, rhonchi, wheezes Cardiovascular exam: PRESENT: RRR. ABSENT: diastolic murmur, rubs, systolic murmur Pulses: PRESENT: normal dorsalis pedis pul GI/Abdominal exam: PRESENT: normal bowel sounds, soft. ABSENT: distended, guarding, mass, organolmegaly, rebound, tenderness Rectal exam: PRESENT: deferred Neurological exam: PRESENT: alert, awake, oriented to person, oriented to place, oriented to time, oriented to situation, CN II-XII grossly intact. ABSENT: motor sensory deficit Results Laboratory Results: 12/25/18 07:42 12/25/18 07:42 12/25/18 12/25/18 07:42 07:42 WBC 4.5 RBC 3.61 L Hgb 12.4 L Hct 34.5 L MCV 96 MCH 34.3 H MCHC 36.0 RDW 14.6 H Plt Count 158 Seg Neutrophils % 61.5 Lymphocytes % 25.3 Monocytes % 8.9 Eosinophils % 4.0 Basophils % 0.3 Absolute Neutrophils 2.8 Absolute Lymphocytes 1.1 Absolute Monocytes 0.4 Absolute Eosinophils 0.2 Absolute Basophils 0.0 Sodium 134.9 L Potassium 4.2 Chloride 97 L Carbon Dioxide 29 Anion Gap 9 BUN 4 L Creatinine 0.65 Est GFR ( Amer) > 60 Est GFR (Non-Af Amer) > 60 Glucose 95 Calcium 9.1 Magnesium 1.6 Qualifiers - * PATIENT BEING DISCHARGED WITH ANY OF THE FOLLOWING DIAGNOSIS: No
== END 2018-12-25 11:00 | disposition home or self-care (01) | DRG 392 ==
LOC: ER 19:48 → EH 22:57 → 2N 12-24 03:55
PROVIDERS: ADMIT Emergency Medicine; ATTEND Emergency Medicine
PROC: 3E0F73Z Introduction of Anti-inflammatory into Respiratory Tract, Via Natural or Artificial Opening (ICD-10-PCS; principal; 2018-12-24)
PROC: 3E02340 Introduction of Influenza Vaccine into Muscle, Percutaneous Approach (ICD-10-PCS; 2018-12-24)
DX: K52.9 Noninfective gastroenteritis and colitis, unspecified (principal); E87.1 Hypo-osmolality and hyponatremia; G89.29 Other chronic pain; R19.7 Diarrhea, unspecified; E78.5 Hyperlipidemia, unspecified; I10 Essential (primary) hypertension; E66.9 Obesity, unspecified; K21.9 Gastro-esophageal reflux disease without esophagitis; F90.9 Attention-deficit hyperactivity disorder, unspecified type; F10.20 Alcohol dependence, uncomplicated; F31.9 Bipolar disorder, unspecified; R11.2 Nausea with vomiting, unspecified; E86.0 Dehydration; G44.209 Tension-type headache, unspecified, not intractable; F17.210 Nicotine dependence, cigarettes, uncomplicated; M91.11 Juvenile osteochondrosis of head of femur [Legg-Calve-Perthes], right leg; Z68.35 Body mass index [BMI] 35.0-35.9, adult; Z23 Encounter for immunization; Z79.899 Other long term (current) drug therapy; Z79.891 Long term (current) use of opiate analgesic; Z88.6 Allergy status to analgesic agent; Z88.3 Allergy status to other anti-infective agents; Z88.8 Allergy status to other drugs, medicaments and biological substances; Z82.61 Family history of arthritis; Z83.3 Family history of diabetes mellitus; Z82.49 Family history of ischemic heart disease and other diseases of the circulatory system; Z82.3 Family history of stroke
CPT/HCPCS: 36415; 80048; 80053; 80076; 80307; 81001; 82150; 83036; 83690; 83735; 84100; 84439; 85025; 87045; 87205; 87493; 89055; 94640; 96361; 96374; 96375; 99284; J0744; J0780; J1644; J2270; J2405; J7030; J7120; S0028

== ENCOUNTER 2019-01-26 21:21 | Emergency (ER) | payer MEDICARE, MEDICAID ==
[2019-01-26] MEDS ORDERED: NORMAL SALINE 1000 ML 1,000 ML IV ONE (21:58)
[2019-01-26] MEDS ORDERED: PROCHLORPERAZINE EDISYLATE INJ 10 MG/2 ML VIAL IV ONE (21:59)
[2019-01-26 22:05] LABS: ABSOLUTE EOSINOPHILS # (AUTO) 0.1 10^3/uL (0.0-0.6); ABSOLUTE LYMPHOCYTES (AUTO) 2.1 10^3/uL (0.5-4.7); ABSOLUTE MONOCYTES (AUTO) 0.8 10^3/uL (0.1-1.4); ABSOLUTE NEUT (AUTO) 7.9 10^3/uL (1.7-8.2); BASOPHILS % (AUTO) 0.3 % (0-2); EOSINOPHILS % (AUTO) 1.1 % (0-6); HEMATOCRIT 40.4 % (37.9-51.0); HEMOGLOBIN 14.5 g/dL (13.5-17.0); LYMPHOCYTES % (AUTO) 19.2 % (13-45); MEAN CORPUSCULAR HEMOGLOBIN 35.8 pg (27.0-33.4); MEAN CORPUSCULAR HGB CONC 35.9 g/dL (32.0-36.0); MEAN CORPUSCULAR VOLUME 100 fl (80-97); MONOCYTES % (AUTO) 7.4 % (3-13); PLATELET COUNT 267 10^3/uL (150-450); RED BLOOD COUNT 4.05 10^6/uL (4.35-5.55); RED CELL DISTRIBUTION WIDTH 16.4 % (11.5-14.0); TOTAL CELLS COUNTED % (AUTO) 100 %
--- NOTE | 2019-01-26 22:07 | RADIOLOGY REPORT (SQ) ---
EXAM DESCRIPTION: XR CHEST 1 VIEW COMPLETED DATE/TME: 01/26/2019 21:31 CLINICAL HISTORY: 38 years, Male, sob COMPARISON: 07/17/2017. NUMBER OF VIEWS: One TECHNIQUE: Single AP view of the chest was obtained portably. LIMITATIONS: None. FINDINGS: Unremarkable cardiac and mediastinal silhouette. Heart size is normal. Lungs are clear without focal opacity, pneumothorax or pleural effusions. The visualized bones are within normal limits. Cervical spine stabilization hardware. IMPRESSION: No acute cardiopulmonary abnormalities. copyright 2010 [employer]- All Rights Reserved
[2019-01-26 22:17] LABS: ANION GAP 9 (5-19); BLOOD UREA NITROGEN 8 mg/dL (7-20); CALCIUM 10.3 mg/dL (8.4-10.2); CARBON DIOXIDE 28 mmol/L (22-30); CHLORIDE 98 mmol/L (98-107); GLUCOSE 108 mg/dL (75-110); POTASSIUM 4.1 mmol/L (3.6-5.0); SODIUM 135.2 mmol/L (137-145)
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
[2019-01-26 22:50] LABS: ALCOHOL < 10 mg/dL (NONE DETECTED)
[2019-01-26] MEDS ORDERED: DIAZEPAM INJ 10 MG/2 ML DISP.SYRIN IV ONE (23:17)
[2019-01-26] MEDS ORDERED: IPRATROPIUM/ALBUTEROL 0.5-2.5 MG/3 ML AMPUL NEB ONE (23:31)
[2019-01-26 23:36] LABS: ALANINE AMINOTRANSFERASE 62 U/L (21-72); ALBUMIN 4.1 g/dL (3.5-5.0); ALKALINE PHOSPHATASE 90 U/L (38-126); ASPARTATE AMINO TRANSFERASE 44 U/L (17-59); BILIRUBIN,DIRECT 0.3 mg/dL (0.0-0.4); BILIRUBIN,TOTAL 0.3 mg/dL (0.2-1.3)
[2019-01-27 00:37] VITALS: BP 120/82
--- NOTE | 2019-01-27 11:07 | EKG REPORT ---
SEVERITY:- ABNORMAL ECG - SINUS RHYTHM PROLONGED QT INTERVAL : Confirmed by: Shannan Granger MD 27-Jan-2019 11:06:02
== END 2019-01-27 00:41 | disposition left against medical advice (07) ==
LOC: ER 21:21
DX: R06.02 Shortness of breath (principal); R42 Dizziness and giddiness; R07.9 Chest pain, unspecified; R00.0 Tachycardia, unspecified; G89.29 Other chronic pain; M25.559 Pain in unspecified hip; E78.00 Pure hypercholesterolemia, unspecified; I10 Essential (primary) hypertension
CPT/HCPCS: 93005; 94640; 99284; 96361; 96374; 36415; 80307; 85025; 80076; 80048; 84484; 71045; 93010; J0780; J7030; A9270; J7620

== ENCOUNTER 2019-03-03 17:57 | Emergency (ER) | payer MEDICAID, MEDICARE ==
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
[2019-03-03] MEDS ORDERED: NORMAL SALINE 1000 ML 1,000 ML IV ONE (18:28)
[2019-03-03] MEDS ORDERED: HYDROMORPHONE HCL INJ/PF 2 MG/ML AMPULE IV ONE ×2 (18:28→19:02)
[2019-03-03] MEDS ORDERED: ONDANSETRON HCL INJ/PF 4 MG/2 ML SDV IV ONE (18:28)
[2019-03-03 18:46] LABS: ABSOLUTE EOSINOPHILS # (AUTO) 0.3 10^3/uL (0.0-0.6); ABSOLUTE LYMPHOCYTES (AUTO) 2.6 10^3/uL (0.5-4.7); ABSOLUTE MONOCYTES (AUTO) 0.5 10^3/uL (0.1-1.4); ABSOLUTE NEUT (AUTO) 3.1 10^3/uL (1.7-8.2); BASOPHILS % (AUTO) 0.3 % (0-2); EOSINOPHILS % (AUTO) 4.2 % (0-6); HEMATOCRIT 42.1 % (37.9-51.0); HEMOGLOBIN 14.6 g/dL (13.5-17.0); LYMPHOCYTES % (AUTO) 39.7 % (13-45); MEAN CORPUSCULAR HEMOGLOBIN 34.7 pg (27.0-33.4); MEAN CORPUSCULAR HGB CONC 34.8 g/dL (32.0-36.0); MEAN CORPUSCULAR VOLUME 100 fl (80-97); MONOCYTES % (AUTO) 7.7 % (3-13); PLATELET COUNT 275 10^3/uL (150-450); RED BLOOD COUNT 4.22 10^6/uL (4.35-5.55); RED CELL DISTRIBUTION WIDTH 13.2 % (11.5-14.0); SEGMENTED NEUTROPHILS % (AUTO) 48.1 % (42-78); TOTAL CELLS COUNTED % (AUTO) 100 %; WHITE BLOOD COUNT 6.5 10^3/uL (4.0-10.5)
[2019-03-03 18:52] LABS: ANION GAP 14 (5-19); BLOOD UREA NITROGEN 10 mg/dL (7-20); CALCIUM 9.6 mg/dL (8.4-10.2); CARBON DIOXIDE 28 mmol/L (22-30); CHLORIDE 96 mmol/L (98-107); GLUCOSE 86 mg/dL (75-110); POTASSIUM 3.9 mmol/L (3.6-5.0); SODIUM 137.5 mmol/L (137-145)
[2019-03-03] MEDS ORDERED: IPRATROPIUM/ALBUTEROL 0.5-2.5 MG/3 ML AMPUL NEB ONE (19:34)
[2019-03-03] MEDS ORDERED: FENTANYL CITRATE INJ/PF 100 MCG/2 ML AMPUL IV ONE (19:34)
[2019-03-03] MEDS ORDERED: HYDROCODONE/ACETAMINOPHEN 5-325 MG (6 TAB/ER DISP) PO PRN (20:48)
[2019-03-03] MEDS ORDERED: ALBUTEROL SULFATE HFA (90 MCG/PUFF) 8 GM MDI (1 MDI/ER DISP) IH ONE (20:48)
[2019-03-03 20:58] VITALS: BP 137/97
== END 2019-03-03 21:12 | disposition home or self-care (01) ==
LOC: ER 17:57
DX: K42.0 Umbilical hernia with obstruction, without gangrene (principal); J98.01 Acute bronchospasm; R10.9 Unspecified abdominal pain; R19.7 Diarrhea, unspecified; R06.2 Wheezing; F17.210 Nicotine dependence, cigarettes, uncomplicated; I10 Essential (primary) hypertension
CPT/HCPCS: 99284; 36415; 85025; 80048; J3010; J1170; J2405; J7030; J3490; A9270 ×2; J7620

== ENCOUNTER 2019-03-29 05:20 | Day surgery (SDC) | payer MEDICARE ==
--- NOTE | 2019-03-27 08:59 | RADIOLOGY REPORT (SQ) ---
EXAM DESCRIPTION: CHEST PA/LATERAL COMPLETED DATE/TIME: 03/27/2019 8:50 am REASON FOR STUDY: PRE-OP COMPARISON: 01/26/2019 EXAM PARAMETERS: NUMBER OF VIEWS: two views TECHNIQUE: Digital Frontal and Lateral radiographic views of the chest acquired. RADIATION DOSE: NA LIMITATIONS: none FINDINGS: LUNGS AND PLEURA: No opacities, masses or pneumothorax. No pleural effusion. MEDIASTINUM AND HILAR STRUCTURES: No masses or contour abnormalities. HEART AND VASCULAR STRUCTURES: Heart normal size. No evidence for failure. BONES: No acute findings. Cervical fusion hardware. Mild levoconvex upper thoracic curvature, possi puma positional. HARDWARE: Partially visualized cervical fusion hardware. OTHER: No other significant finding. IMPRESSION: NO SIGNIFICANT RADIOGRAPHIC FINDING IN THE CHEST. TECHNICAL DOCUMENTATION: JOB ID: [id number] [employer]- All Rights Reserved Reading location - IP/workstation name: [email or web address]
[2019-03-27 09:19] LABS: HEMATOCRIT 40.8 % (37.9-51.0); HEMOGLOBIN 14.2 g/dL (13.5-17.0); MEAN CORPUSCULAR HEMOGLOBIN 34.9 pg (27.0-33.4); MEAN CORPUSCULAR HGB CONC 34.8 g/dL (32.0-36.0); MEAN CORPUSCULAR VOLUME 100 fl (80-97); PLATELET COUNT 220 10^3/uL (150-450); RED BLOOD COUNT 4.06 10^6/uL (4.35-5.55); RED CELL DISTRIBUTION WIDTH 12.9 % (11.5-14.0); WHITE BLOOD COUNT 6.3 10^3/uL (4.0-10.5)
[2019-03-27 09:46] LABS: ANION GAP 14 (5-19); BLOOD UREA NITROGEN 10 mg/dL (7-20); CALCIUM 9.7 mg/dL (8.4-10.2); CARBON DIOXIDE 29 mmol/L (22-30); CHLORIDE 94 mmol/L (98-107); GLUCOSE 83 mg/dL (75-110); POTASSIUM 4.6 mmol/L (3.6-5.0); SODIUM 137.4 mmol/L (137-145)
[~2019-03-29 05:20] MED LIST: CEFAZOLIN 2 GM/D5W RTU 2 GM/50 ML RTUPB IV ONE; CEFAZOLIN 2 GM/D5W RTU 2 GM/50 ML RTUPB IV PRN; IBUPROFEN 800 MG in NORMAL SALINE 250 ML IV PRN; LACTATED RINGERS 1000 ML IV PRN; LIDOCAINE 0.5% INJ-PF (5 MG/ML) 50 ML SDV SUBCUT PRN; PREGABALIN 50 MG CAPSULE ONE; PREGABALIN 50 MG CAPSULE PO PRN
[2019-03-29] MEDS ORDERED: ALBUTEROL SULFATE 0.083% NEB 2.5 MG/3 ML AMPUL NEB ONE (05:57)
[2019-03-29] MEDS ORDERED: FENTANYL CITRATE INJ/PF 250 MCG/5 ML AMPULE ONE (06:12)
[2019-03-29] MEDS ORDERED: MIDAZOLAM 2 MG/2 ML INJ ONE (06:12)
[2019-03-29] MEDS ORDERED: SUGAMMADEX SODIUM 200 MG/2 ML SDV IV ONE (06:13)
[2019-03-29] MEDS ORDERED: ONDANSETRON HCL INJ/PF 4 MG/2 ML SDV ONE (06:13)
[2019-03-29] MEDS ORDERED: PROPOFOL INJ 200 MG/20 ML VIAL IV ONE (06:13)
[2019-03-29] MEDS ORDERED: DEXAMETHASONE SOD PHOSPHATE INJ 4 MG/1 ML VIAL ONE ×2 (06:13→15:22)
[2019-03-29] MEDS ORDERED: LIDOCAINE 0.5% INJ-PF (5 MG/ML) 50 ML SDV ONE (06:14)
[2019-03-29] MEDS ORDERED: BUPIVACAINE HCL 0.25 % INJ/PF (2.5 MG/1 ML) 30 ML VIAL ONE (07:16)
[2019-03-29] MEDS ORDERED: FENTANYL CITRATE INJ/PF 100 MCG/2 ML AMPUL IV PRN ×3 (08:30)
[2019-03-29] MEDS ORDERED: DIPHENHYDRAMINE HCL 50 MG/ML VIAL IV PRN (08:30)
[2019-03-29] MEDS ORDERED: MEPERIDINE HCL/PF INJ 25 MG/1 ML DISP.SYRIN IV PRN (08:30)
[2019-03-29] MEDS ORDERED: ONDANSETRON HCL INJ/PF 4 MG/2 ML SDV IV PRN (08:30)
[2019-03-29] MEDS ORDERED: PROMETHAZINE HCL INJ 25 MG/1 ML VIAL IV PRN ×2 (08:30)
[2019-03-29] MEDS ORDERED: MORPHINE SULFATE 10 MG/ML INJ IV PRN (08:30)
[2019-03-29] MEDS ORDERED: ALBUTEROL SULFATE HFA (90 MCG/PUFF) 200 PUFF/8.5 GM MDI IH ONE (08:46)
[2019-03-29] MEDS ORDERED: FENTANYL CITRATE INJ/PF 100 MCG/2 ML AMPUL ONE (08:46)
[2019-03-29] MEDS: HYDROMORPHONE HCL INJ/PF 2 MG/ML AMPULE ONE ×4 (09:53→10:23)
[2019-03-29] MEDS ORDERED: ACETAMINOPHEN 1,000 MG/100 ML RTUPB IV ONE (09:55)
[2019-03-29] MEDS: LORAZEPAM INJ 2 MG/1 ML VIAL ONE ×2 (10:42→11:26)
[2019-03-29] MEDS ORDERED: HYDROMORPHONE HCL INJ/PF 2 MG/ML AMPULE ONE (10:42)
[2019-03-29] MEDS ORDERED: IPRATROPIUM/ALBUTEROL 0.5-2.5 MG/3 ML AMPUL NEB ONE (11:17)
[2019-03-29] MEDS ORDERED: OXYCODONE-ACETAMINOPHEN 5-325 MG TABLET ONE (12:40)
--- NOTE | 2019-03-29 12:55 | Discharge Summary ---
Discharge Summary (SDC) - Discharge Final Diagnosis: Symptomatic ventral, incisional hernia Date of Surgery: 03/29/19 Discharge Date: 03/29/19 Condition: Stable Treatment or Instructions: Discharge home. Diet as tolerated. Activity: No lifting greater than 10 pounds x 6 weeks. Follow-up with me in 7 to 10 days. Percocet 5/325 mg p.o. every 6 hours as needed for pain. Ibuprofen 800 mg p.o. 3 times daily with meals. Okay to shower on Monday. No tub baths or swimming pools x2 weeks. Referrals: ALEAH BAKER MD [Primary Care Provider] - Discharge Diet: As Tolerated Respiratory Treatments at Home: Deep Breathing/Coughing, Incentive Spirometer Discharge Activity: Balance Activity w/Rest, No Lifting Over 10 Pounds Home Care Assistance: None Needed Report the Following to Your Physician Immediately: Shortness of Breath, Nausea, Vomiting, Increase in Pain, Fever over 101 Degrees, Unusual Bleeding, Redness
[2019-03-29 13:58] VITALS: BP 137/84
[2019-03-29] MEDS ORDERED: ROCURONIUM BROMIDE INJ 50 MG/5 ML VIAL IV ONE (15:22)
[2019-03-29] MEDS ORDERED: KETOROLAC TROMETHAMINE 60 MG/2 ML SDV ONE (15:22)
[2019-03-29] MEDS ORDERED: SUCCINYLCHOLINE CHLORIDE INJ 200 MG/10 ML VIAL ONE (15:22)
--- NOTE | 2019-04-01 07:46 | Operative Report ---
Nonrecallable Operative Report DATE OF SURGERY: 03/29/19 PREOPERATIVE DIAGNOSIS: Ventral incisional hernia POSTOPERATIVE DIAGNOSIS: 1. Ventral incisional hernia. 2. Epigastric hernia OPERATION: 1. Robot-assisted laparoscopic ventral hernia repair with mesh. 2. Closure of diastases recti SURGEON: BETH RAY 1ST DEV TECHNICAL MGR: DEBORA MACIAS ANESTHESIA: GA TISSUE REMOVED OR ALTERED: None COMPLICATIONS: None apparent ESTIMATED BLOOD LOSS: Minimal PROCEDURE: Drains/implants: 15 x [address] hernia mesh. Procedure in detail: After informed consent was obtained, the patient was brought into the operating room and laid in the supine position. The area of the abdomen was prepped and draped in a normal sterile fashion. A 15 blade scalpel was used to create a left upper quadrant incision. The camera and 5 mm trocar were introduced into the abdominal cavity using the Optiview technique. This was done under direct laparoscopic visualization. Once entry into the abdominal cavity was noted, gas insufflation was attached. Pneumoperitoneum was then achieved. Next a 12 mm left lateral trocar was placed under direct laparoscopic visualization. Another left lower quadrant 8 mm trocar was placed in similar fashion. The 5 mm trocar was then removed and replaced with an 8 mm robotic trocar. Once this was completed, the robot was brought over the patient and docked appropriately. I then assumed my position at the surgeon's console. Attention was turned to the evaluation of the anterior abdominal wall. There was an obvious periumbilical incisional hernia present. The peritoneal fat was cleared away from the anterior abdominal wall. In doing this, another hernia defect was identified in the epigastrium. The falciform ligament was taken down up to the xiphoid process. Next, the patient's diastases recti was reapproximated using #1 V Lock Suture in simple running fashion. This was done from the xiphoid process to the periumbilical defect. A second #1 V Lock Suture was used from below the periumbilical defect, up to the epigastrium. Once the m idline was closed, a 15 x [address] hernia mesh was chosen to adequately cover the area. It was placed into the abdominal cavity and apposed to the anterior abdominal wall. The mesh was sutured into place using 2-0 VLock suture in circumferential running fashion. Another V lock suture was then used through the middle of the mesh to promote adherence to the anterior abdominal wall. Once this was completed, the mesh was found to lie in good place. The robot was undocked, and I scrubbed back into the case. The 8 mm trocar sites were closed using 0 Vicryl suture in simple interrupted fashion with the Anders-Amber device. The 12 mm trocar site was closed using 0 Vicryl suture in interrupted fashion x2 with the aid of the Anders-Amber device. The overlying skin was closed using 4-0 Vicryl Rapide suture in subcuticular fashion. Dressings were placed, and the procedure was concluded. All sponge, instrument, and needle counts were correct x2. Condition: Stable. Debora Macias PA-C was scrubbed and present the entirety of the procedure. She assisted with all portions of the procedure including placement of the trochars, docking of the robot, exchanging of the robotic instruments, insertion of the mesh, closure of the fascia, and closure of the skin.
== END 2019-03-29 13:35 | disposition home or self-care (01) ==
LOC: OROUT 05:20
PROVIDERS: ATTEND Surgery
DX: K43.9 Ventral hernia without obstruction or gangrene (principal); E78.00 Pure hypercholesterolemia, unspecified; I10 Essential (primary) hypertension; J45.909 Unspecified asthma, uncomplicated; F17.210 Nicotine dependence, cigarettes, uncomplicated; Z79.899 Other long term (current) drug therapy; Z79.891 Long term (current) use of opiate analgesic; Z88.5 Allergy status to narcotic agent; Z88.8 Allergy status to other drugs, medicaments and biological substances; E66.9 Obesity, unspecified; Z68.35 Body mass index [BMI] 35.0-35.9, adult; G47.33 Obstructive sleep apnea (adult) (pediatric)
CPT/HCPCS: 49652; S2900; 36415; 71046; 750; 80048; 85027; 86850; 86900; 86901; C1781; J0131; J0330; J0690; J1100; J1170; J1741; J1885; J2060; J2250; J2405; J2704; J3010; J3490; J7050; J7620

== ENCOUNTER 2019-04-06 04:03 | Emergency (ER) | payer MEDICAID, MEDICARE ==
[2019-04-06] MEDS ORDERED: IPRATROPIUM/ALBUTEROL 0.5-2.5 MG/3 ML AMPUL NEB ONE (06:28)
[2019-04-06] MEDS ORDERED: MORPHINE SULFATE 10 MG/ML INJ IV ONE ×2 (06:28→08:25)
[2019-04-06] MEDS ORDERED: NORMAL SALINE 1000 ML 1,000 ML IV ONE (06:28)
[2019-04-06 06:29] LABS: ABSOLUTE BASOPHILS # (AUTO) 0.1 10^3/uL (0.0-0.2); ABSOLUTE EOSINOPHILS # (AUTO) 0.5 10^3/uL (0.0-0.6); ABSOLUTE LYMPHOCYTES (AUTO) 1.7 10^3/uL (0.5-4.7); ABSOLUTE MONOCYTES (AUTO) 0.6 10^3/uL (0.1-1.4); EOSINOPHILS % (AUTO) 5.3 % (0-6); HEMATOCRIT 37.2 % (37.9-51.0); HEMOGLOBIN 13.3 g/dL (13.5-17.0); LYMPHOCYTES % (AUTO) 18.9 % (13-45); MEAN CORPUSCULAR HGB CONC 35.9 g/dL (32.0-36.0); MEAN CORPUSCULAR VOLUME 97 fl (80-97); PLATELET COUNT 256 10^3/uL (150-450); RED BLOOD COUNT 3.82 10^6/uL (4.35-5.55); RED CELL DISTRIBUTION WIDTH 13.3 % (11.5-14.0); SEGMENTED NEUTROPHILS % (AUTO) 67.8 % (42-78); TOTAL CELLS COUNTED % (AUTO) 100 %; WHITE BLOOD COUNT 8.8 10^3/uL (4.0-10.5)
[2019-04-06 06:51] LABS: BLOOD UREA NITROGEN 12 mg/dL (7-20); CALCIUM 9.4 mg/dL (8.4-10.2); CARBON DIOXIDE 26 mmol/L (22-30); CHLORIDE 90 mmol/L (98-107); GLUCOSE 105 mg/dL (75-110); POTASSIUM 4.2 mmol/L (3.6-5.0); SODIUM 128.4 mmol/L (137-145)
[2019-04-06 06:52] LABS: ALANINE AMINOTRANSFERASE 44 U/L (21-72); ALBUMIN 3.9 g/dL (3.5-5.0); ALKALINE PHOSPHATASE 87 U/L (38-126); ANION GAP 12 (5-19); ASPARTATE AMINO TRANSFERASE 26 U/L (17-59); BILIRUBIN,DIRECT 0.3 mg/dL (0.0-0.4); BILIRUBIN,TOTAL 0.6 mg/dL (0.2-1.3); TOTAL PROTEIN 6.4 g/dL (6.3-8.2)
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
--- NOTE | 2019-04-06 07:30 | RADIOLOGY REPORT (SQ) ---
CLINICAL HISTORY: cough COMPARISON: None. TECHNIQUE: XR CHEST 1 VIEW 04/06/2019 6:29 AM CDT FINDINGS: Cardiac silhouette is normal in size. Lungs are clear without consolidation, atelectasis, mass or edema. There is no pleural effusion. There is no pneumothorax. There are no acute osseous findings. IMPRESSION: Clear lungs.
--- NOTE | 2019-04-06 09:40 | RADIOLOGY REPORT (SQ) ---
EXAM DESCRIPTION: CT ABD/PELVIS WITH IV ORAL COMPLETED DATE/TIME: 04/06/2019 9:05 am REASON FOR STUDY: abdominal pain, post-op COMPARISON: 03/31/2016 TECHNIQUE: CT scan of the abdomen and pelvis performed with intravenous and oral contrast using rasta cassy scanning technique with dynamic intravenous contrast injection. Images reviewed with lung, soft t issue, and bone windows. Reconstructed coronal and sagittal MPR images reviewed. Delayed images for e valuation of the urinary system also acquired. All images stored on PACS. All CT scanners at this facility use dose modulation, iterative reconstruction, and/or weight based d osing when appropriate to reduce radiation dose to as low as reasonably achievable (ALARA). [facility]: Dose Right [facility]: CareDose [facility]: Dose Right [facility]: Teradose 4D [facility]: GraffitiGeo CONTRAST TYPE AND DOSE: contrast/concentration: Isovue 350.00 mg/ml; Total Contrast Delivered: 100.0 ml; Total Saline Delivered: 72.0 ml RENAL FUNCTION: GFR > 60. RADIATION DOSE: CT Rad equipment meets quality standard of care and radiation dose reduction techniq ues were employed. CTDIvol: 19.1 - 20.4 mGy. DLP: 2194 mGy-cm. . LIMITATIONS: Orthopedic hardware in the right hip. FINDINGS: LOWER CHEST: Gastroesophageal reflux. LIVER: Normal size. No masses. No dilated ducts. SPLEEN: Normal size. No focal lesions. PANCREAS: No masses. No significant calcifications. No adjacent inflammation or peripancreatic fluid collections. Pancreatic duct not dilated. GALLBLADDER: No identified stones by CT criteria. No inflammatory changes to suggest cholecystitis. ADRENAL GLANDS: No significant masses or asymmetry. RIGHT KIDNEY AND URETER: No solid masses. No significant calcifications. No hydronephrosis or hyd roureter. LEFT KIDNEY AND URETER: No solid masses. No significant calcifications. No hydronephrosis or hydr oureter. AORTA AND VESSELS: Partially recannulized umbilical vein. RETROPERITONEUM: No retroperitoneal adenopathy, hemorrhage or masses. BOWEL AND PERITONEAL CAVITY: No obstruction. No visualized masses. No free fluid. No inflammatory ch anges or thickening of bowel wall. APPENDIX: Normal. PELVIS: No significant masses. Normal bladder. No free fluid. ABDOMINAL WALL: No masses. No hernias. BONES: No significant or acute findings. OTHER: No other significant finding. IMPRESSION: No acute findings. Portal hypertension. TECHNICAL DOCUMENTATION: JOB ID: [id number] Quality ID # [id number]: Final reports with documentation of one or more dose reduction techniques (e.g., Au tomated exposure control, adjustment of the mA and/or kV according to patient size, use of iterative reconstruction technique) 2010 [employer]- All Rights Reserved Reading location - IP/workstation name: [email or web address]
[2019-04-06] MEDS ORDERED: FENTANYL CITRATE INJ/PF 100 MCG/2 ML AMPUL IV ONE (09:58)
[2019-04-06] MEDS ORDERED: FENTANYL CITRATE INJ/PF 100 MCG/2 ML AMPUL ONE (10:09)
[2019-04-06 10:29] VITALS: BP 123/69
== END 2019-04-06 10:26 | disposition home or self-care (01) ==
LOC: ER 04:03
DX: E87.1 Hypo-osmolality and hyponatremia (principal); R10.12 Left upper quadrant pain; G89.18 Other acute postprocedural pain; R68.89 Other general symptoms and signs; R06.2 Wheezing; R05 Cough; I10 Essential (primary) hypertension; E78.5 Hyperlipidemia, unspecified; F17.200 Nicotine dependence, unspecified, uncomplicated; E78.00 Pure hypercholesterolemia, unspecified
CPT/HCPCS: 96376; 94640; 99284; 96361; 96374; 96375; 36415; 85025; 80053; 71045; 74177; J3010; J2270; J7030; A9270; J7620

== ENCOUNTER 2019-04-20 10:53 | Inpatient (IN) | payer MEDICARE ==
[2019-04-20] MEDS ORDERED: ONDANSETRON HCL INJ/PF 4 MG/2 ML SDV IV ONE (11:49)
[2019-04-20] MEDS ORDERED: NORMAL SALINE 1000 ML 1,000 ML IV ONE ×2 (11:49→13:33)
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
[2019-04-20] MEDS ORDERED: KETOROLAC TROMETHAMINE INJ/PF 30 MG/1 ML SDV IV ONE (12:10)
[2019-04-20 12:42] LABS: ABSOLUTE BASOPHILS # (AUTO) 0.1 10^3/uL (0.0-0.2); ABSOLUTE EOSINOPHILS # (AUTO) 0.1 10^3/uL (0.0-0.6); ABSOLUTE LYMPHOCYTES (AUTO) 1.6 10^3/uL (0.5-4.7); ABSOLUTE MONOCYTES (AUTO) 0.7 10^3/uL (0.1-1.4); BASOPHILS % (AUTO) 0.9 % (0-2); EOSINOPHILS % (AUTO) 1.5 % (0-6); HEMATOCRIT 39.3 % (37.9-51.0); HEMOGLOBIN 13.6 g/dL (13.5-17.0); LYMPHOCYTES % (AUTO) 16.9 % (13-45); MEAN CORPUSCULAR HEMOGLOBIN 34.9 pg (27.0-33.4); MEAN CORPUSCULAR HGB CONC 34.7 g/dL (32.0-36.0); MEAN CORPUSCULAR VOLUME 100 fl (80-97); MONOCYTES % (AUTO) 6.9 % (3-13); PLATELET COUNT 337 10^3/uL (150-450); RED BLOOD COUNT 3.91 10^6/uL (4.35-5.55); RED CELL DISTRIBUTION WIDTH 13.1 % (11.5-14.0); SEGMENTED NEUTROPHILS % (AUTO) 73.8 % (42-78); TOTAL CELLS COUNTED % (AUTO) 100 %; WHITE BLOOD COUNT 9.6 10^3/uL (4.0-10.5)
--- NOTE | 2019-04-20 12:42 | RADIOLOGY REPORT (SQ) ---
EXAM DESCRIPTION: CHEST 2 VIEWS COMPLETED DATE/TIME: 04/20/2019 12:35 pm REASON FOR STUDY: shortness of breath, malaise COMPARISON: 04/06/2019 EXAM PARAMETERS: NUMBER OF VIEWS: two views TECHNIQUE: Digital Frontal and Lateral radiographic views of the chest acquired. RADIATION DOSE: NA LIMITATIONS: none FINDINGS: LUNGS AND PLEURA: No opacities, masses or pneumothorax. No pleural effusion. MEDIASTINUM AND HILAR STRUCTURES: No masses or contour abnormalities. HEART AND VASCULAR STRUCTURES: Heart normal size. No evidence for failure. BONES: No acute findings. HARDWARE: Lower cervical ACDF. OTHER: No other significant finding. IMPRESSION: NO ACUTE RADIOGRAPHIC FINDING IN THE CHEST. TECHNICAL DOCUMENTATION: JOB ID: [id number] [employer]- All Rights Reserved Reading location - IP/workstation name: [email or web address]
[2019-04-20 12:53] LABS: APPEARANCE,URINE SLIGHTLY-CLOUDY; BILIRUBIN,URINE NEGATIVE (NEGATIVE); COLOR,URINE YELLOW; GLUCOSE, URINE NEGATIVE (NEGATIVE); KETONES,URINE NEGATIVE (NEGATIVE); LEUKOCYTE ESTERASE,URINE NEGATIVE (NEGATIVE); NITRITE,URINE NEGATIVE (NEGATIVE); PROTEIN,URINE NEGATIVE (NEGATIVE); UROBILINOGEN,URINE NEGATIVE mg/dL (<2.0)
[2019-04-20 12:57] LABS: ALANINE AMINOTRANSFERASE 35 U/L (21-72); ALBUMIN 4.9 g/dL (3.5-5.0); ALKALINE PHOSPHATASE 98 U/L (38-126); ANION GAP 18 (5-19); ASPARTATE AMINO TRANSFERASE 21 U/L (17-59); BILIRUBIN,DIRECT 0.5 mg/dL (0.0-0.4); BILIRUBIN,TOTAL 0.7 mg/dL (0.2-1.3); BLOOD UREA NITROGEN 49 mg/dL (7-20); CALCIUM 9.8 mg/dL (8.4-10.2); CARBON DIOXIDE 27 mmol/L (22-30); CHLORIDE 90 mmol/L (98-107); GLUCOSE 95 mg/dL (75-110); POTASSIUM 4.2 mmol/L (3.6-5.0); SODIUM 134.7 mmol/L (137-145); TOTAL PROTEIN 7.7 g/dL (6.3-8.2)
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
[2019-04-20] MEDS ORDERED: LEVALBUTEROL HCL NEB 0.63 MG/3 ML AMPUL NEB PRN (14:04)
[2019-04-20] MEDS ORDERED: TEMAZEPAM 15 MG CAPSULE PO PRN (14:04)
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
--- NOTE | 2019-04-20 15:38 | RADIOLOGY REPORT (SQ) ---
EXAM DESCRIPTION: U/S RETROPERITON (RENAL/AORTA) COMPLETED DATE/TIME: 04/20/2019 3:15 pm REASON FOR STUDY: Acute kidney injury COMPARISON: 04/06/2019 TECHNIQUE: Dynamic and static grayscale images acquired of the kidneys and bladder and recorded on P ACS. Additional selected color Doppler and spectral images recorded. LIMITATIONS: None. FINDINGS: RIGHT KIDNEY: Normal size. Normal echogenicity. No solid or suspicious masses. No hydronep hrosis. No calcifications. LEFT KIDNEY: Normal size. Normal echogenicity. No solid or suspicious masses. No hydronephrosis. No calcifications. BLADDER: Decompressed by Ross bladder catheter. OTHER FINDINGS: No other significant finding. IMPRESSION: Normal sonographic appearance of the kidneys. TECHNICAL DOCUMENTATION: JOB ID: [id number] [employer]- All Rights Reserved Reading location - IP/workstation name: [email or web address]
[2019-04-20] MEDS: NORMAL SALINE 1000 ML 1,000 ML IV PRN (16:57)
[2019-04-20] MEDS: DOCUSATE SODIUM 100 MG/10 ML UDC PO SCH (17:20)
[2019-04-20] MEDS: ACETAMINOPHEN 325 MG TABLET PO PRN (18:16)
[2019-04-20] MEDS ORDERED: ALBUTEROL SULFATE HFA (90 MCG/PUFF) 200 PUFF/8.5 GM MDI IH PRN (18:28)
[2019-04-20] MEDS ORDERED: (PENDING PHARMACY ID) (Tapentadol Hydrochloride [Nucynta] 50 MG) PO PRN (18:28)
[2019-04-20] MEDS: ONDANSETRON HCL INJ/PF 4 MG/2 ML SDV IV PRN (19:46)
[2019-04-20] MEDS: OXCARBAZEPINE 150 MG TABLET PO SCH (21:22)
[2019-04-20] MEDS: ATORVASTATIN CALCIUM 10 MG TABLET PO SCH (21:22)
[2019-04-20] MEDS: TRAZODONE HCL 50 MG TABLET PO SCH (21:22)
[2019-04-20] MEDS: HEPARIN SOD (PORCINE) 5,000 UNIT/ML 1 ML SYRINGE SUBCUT SCH (21:22)
[2019-04-20] MEDS: DIAZEPAM 5 MG TABLET PO PRN (21:22)
[2019-04-20 21:29] LABS: URINE AMPHETAMINES SCREEN NEGATIVE; URINE BARBITURATES SCREEN NEGATIVE; URINE COCAINE SCREEN NEGATIVE; URINE MARIJUANA (THC) SCREEN NEGATIVE; URINE METHADONE SCREEN NEGATIVE; URINE PHENCYCLIDINE SCREEN NEGATIVE
[2019-04-20 21:33] LABS: URINE BENZODIAZEPINES SCREEN UNCONFIRMED POSITIVE
[2019-04-21] MEDS: ACETAMINOPHEN 325 MG TABLET PO PRN ×2 (02:16→10:27)
[2019-04-21] MEDS: NORMAL SALINE 1000 ML 1,000 ML IV PRN ×2 (02:16→15:06)
[2019-04-21] MEDS: HEPARIN SOD (PORCINE) 5,000 UNIT/ML 1 ML SYRINGE SUBCUT SCH ×3 (05:11→21:58)
[2019-04-21] MEDS: PANTOPRAZOLE SODIUM 40 MG VIAL IV SCH (05:11)
[2019-04-21] MEDS: PAROXETINE HCL 20 MG TABLET PO SCH (08:13)
[2019-04-21 09:23] LABS: ANION GAP 9 (5-19); CALCIUM 9.1 mg/dL (8.4-10.2); CARBON DIOXIDE 25 mmol/L (22-30); CHLORIDE 101 mmol/L (98-107); GLUCOSE 91 mg/dL (75-110); POTASSIUM 4.3 mmol/L (3.6-5.0)
[2019-04-21 09:33] LABS: BLOOD UREA NITROGEN 29 mg/dL (7-20)
[2019-04-21] MEDS ORDERED: (PENDING PHARMACY ID) (Lisinopril/Hydrochlorothiazide [Lisinopril-Hctz 20-12.5 Mg Tab] 1 E PO SCH (10:00)
[2019-04-21] MEDS ORDERED: (PENDING PHARMACY ID) (Methylphenidate Hcl [Ritalin] 20 MG) PO SCH (10:00)
[2019-04-21] MEDS: AMLODIPINE BESYLATE 5 MG TABLET PO SCH (10:27)
[2019-04-21] MEDS: OXCARBAZEPINE 150 MG TABLET PO SCH ×2 (10:27→21:57)
[2019-04-21] MEDS: DOCUSATE SODIUM 100 MG/10 ML UDC PO SCH ×2 (10:29→17:34)
--- NOTE | 2019-04-21 12:04 | PDOC PROGRESS REPORT ---
Subjective Progress Note for:: 04/21/19 Subjective:: JUDE HI is a 38 year old male patient with past medical history of gik-Xujqa-Yqdilkb disease and multiple pelvic surgery, hypertension, hyperlipidemia, history of anxiety and depression, bronchial asthma, obesity, tobacco dependence gastroesophageal reflux disease presents with chief complaint of lightheadedness nausea and syncopal episodes. Patient states he was recently admitted to the hospital on April 06, 2019 after hernia surgery on 03/29/[address] Dalton. Patient states he would intermittently briefly lose consciousness while looking at his phone and reports this being lightheaded when standing. Patient denies any vomiting, diarrhea, urinary complaint is, external bleeding, headache, blurry vision or any seizure activity. Blood works are unremarkable except he has markedly elevated creatinine of 4.49 BUN of 49 and GFR of 15. 04/21/2019: Patient seen and examined at bedside. He is awake alert oriented. Not in pain or distress. He has been getting normal saline at rate of 200 mL/h. His creatinine markedly improved yesterday it was 4.49 today it is 1.28. He does not have any new complaint. His potential discharge for tomorrow if his creatinine further drops. Reason For Visit: ACUTE KIDNEY INJURY Physical Exam Vital Signs: Temp Pulse Resp BP Pulse Ox 97.9 F 68 18 114/95 H 98 04/21/19 11:53 04/21/19 11:53 04/21/19 11:53 04/21/19 11:53 04/21/19 11:53 Intake & Output 04/20/19 04/21/19 04/22/19 06:59 06:59 06:59 Intake Total 3730 Output Total 2200 Balance 1530 Weight 105.6 kg General appearance: PRESENT: no acute distress Eye exam: PRESENT: conjunctiva pink Neck exam: ABSENT: carotid bruit, JVD, lymphadenopathy, thyromegaly Respiratory exam: PRESENT: clear to auscultation omer. ABSENT: rales, rhonchi, wheezes Cardiovascular exam: PRESENT: RRR. ABSENT: diastolic murmur, rubs, systolic murmur GI/Abdominal exam: PRESENT: normal bowel sounds, soft. ABSENT: distended, guarding, mass, organolmegaly, rebound, tenderness Neurological exam: PRESENT: alert, awake, oriented to person, oriented to place, oriented to time, oriented to situation Results Laboratory Results: 04/20/19 11:53 04/21/19 08:37 04/20/19 04/20/19 04/20/19 11:53 11:53 11:53 WBC 9.6 RBC 3.91 L Hgb 13.6 Hct 39.3 MCV 100 H MCH 34.9 H MCHC 34.7 RDW 13.1 Plt Count 337 Seg Neutrophils % 73.8 Lymphocytes % 16.9 Monocytes % 6.9 Eosinophils % 1.5 Basophils % 0.9 Absolute Neutrophils 7.0 Absolute Lymphocytes 1.6 Absolute Monocytes 0.7 Absolute Eosinophils 0.1 Absolute Basophils 0.1 Sodium 134.7 L Potassium 4.2 Chloride 90 L Carbon Dioxide 27 Anion Gap 18 BUN 49 H Creatinine 4.49 H Est GFR ( Amer) 18 L Est GFR (Non-Af Amer) 15 L Glucose 95 Calcium 9.8 Magnesium 2.3 Total Bilirubin 0.7 AST 21 ALT 35 Alkaline Phosphatase 98 Total Protein 7.7 Albumin 4.9 Urine Color YELLOW Urine Appearance SLIGHTLY-CLOUDY Urine pH 5.0 Ur Specific [place] 1.020 Urine Protein NEGATIVE Urine Glucose (UA) NEGATIVE Urine Ketones NEGATIVE Urine Blood SMALL H Urine Nitrite NEGATIVE Ur Leukocyte Esterase NEGATIVE Urine WBC (Auto) 5 Urine RBC (Auto) 9 04/21/19 08:37 WBC RBC Hgb Hct MCV MCH MCHC RDW Plt Count Seg Neutrophils % Lymphocytes % Monocytes % Eosinophils % Basophils % Absolute Neutrophils Absolute Lymphocytes Absolute Monocytes Absolute Eosinophils Absolute Basophils Sodium 135.0 L Potassium 4.3 Chloride 101 Carbon Dioxide 25 Anion Gap 9 BUN 29 H D Creatinine 1.28 H Est GFR ( Amer) > 60 Est GFR (Non-Af Amer) > 60 Glucose 91 Calcium 9.1 Magnesium Total Bilirubin AST ALT Alkaline Phosphatase Total Protein Albumin Urine Color Urine Appearance Urine pH Ur Specific [place] Urine Protein Urine Glucose (UA) Urine Ketones Urine Blood Urine Nitrite Ur Leukocyte Esterase Urine WBC (Auto) Urine RBC (Auto) 04/20/19 11:53 Creatine Kinase 121 Impressions: Renal Ultrasound 04/20/19 00:00 IMPRESSION: Normal sonographic appearance of the kidneys. Chest X-Ray 04/20/19 11:48 IMPRESSION: NO ACUTE RADIOGRAPHIC FINDING IN THE CHEST. Assessment and Plan - Diagnosis (1) Acute kidney injury Is this a current diagnosis for this admission?: Yes Plan: His creatinine trended down from 4.49 to 1.28. Reduced his normal saline from 200 mm/h to 150 mm/h. (2) Hypertension Qualifiers: Hypertension type: essential hypertension Qualified Code(s): I10 - Essential (primary) hypertension Is this a current diagnosis for this admission?: Yes Plan: I will hold his lisinopril and resume his amlodipine. (3) Hyperlipidemia Is this a current diagnosis for this admission?: Yes Plan: Continue his home medication. (4) Bronchial asthma Is this a current diagnosis for this admission?: Yes Plan: Continue his metered-dose inhaler. (5) Tobacco dependence Is this a current diagnosis for this admission?: Yes Plan: Counseled and encouraged to quit smoking. (6) Obesity (BMI 30.0-34.9) Is this a current diagnosis for this admission?: Yes Plan: Patient advised to do lifestyle modification. (7) Anxiety and depression Is this a current diagnosis for this admission?: Yes Plan: We will continue his home medication.
[2019-04-21] MEDS: ONDANSETRON HCL INJ/PF 4 MG/2 ML SDV IV PRN (15:55)
[2019-04-21] MEDS: OXYCODONE-ACETAMINOPHEN 5-325 MG TABLET PO PRN ×2 (16:13→21:57)
[2019-04-21] MEDS: ATORVASTATIN CALCIUM 10 MG TABLET PO SCH (21:57)
[2019-04-21] MEDS: DIAZEPAM 5 MG TABLET PO PRN (21:57)
[2019-04-21] MEDS: TRAZODONE HCL 50 MG TABLET PO SCH (21:57)
[2019-04-22] MEDS: NORMAL SALINE 1000 ML 1,000 ML IV PRN (02:04)
[2019-04-22] MEDS: PANTOPRAZOLE SODIUM 40 MG VIAL IV SCH (05:08)
[2019-04-22] MEDS: OXYCODONE-ACETAMINOPHEN 5-325 MG TABLET PO PRN (05:08)
[2019-04-22] MEDS: HEPARIN SOD (PORCINE) 5,000 UNIT/ML 1 ML SYRINGE SUBCUT SCH (05:08)
[2019-04-22 06:37] LABS: ANION GAP 6 (5-19); BLOOD UREA NITROGEN 17 mg/dL (7-20); CALCIUM 8.4 mg/dL (8.4-10.2); CARBON DIOXIDE 26 mmol/L (22-30); CHLORIDE 100 mmol/L (98-107); GLUCOSE 86 mg/dL (75-110); POTASSIUM 4.3 mmol/L (3.6-5.0); SODIUM 131.9 mmol/L (137-145)
[2019-04-22] MEDS: PAROXETINE HCL 20 MG TABLET PO SCH (07:32)
--- NOTE | 2019-04-22 09:06 | PDOC DISCHARGE SUMMARY ---
General - Admit/Disc Date/PCP Admission Date/Primary Care Provider: 04/20/19 14:17 ALEAH BAKER MD Discharge Date: 04/22/19 - Discharge Diagnosis (1) Acute kidney injury Is this a current diagnosis for this admission?: Yes (2) Hypertension Is this a current diagnosis for this admission?: Yes (3) Hyperlipidemia Is this a current diagnosis for this admission?: Yes (4) Bronchial asthma Is this a current diagnosis for this admission?: Yes (5) Tobacco dependence Is this a current diagnosis for this admission?: Yes (6) Obesity (BMI 30.0-34.9) Is this a current diagnosis for this admission?: Yes (7) Anxiety and depression Is this a current diagnosis for this admission?: Yes - Additional Information Resuscitation Status: Full Code Home Medications: Amlodipine Besylate [Norvasc 5 mg Tablet] 5 mg PO DAILY 12/24/18 Diazepam [Valium] 5 mg PO Q12HP PRN 12/24/18 Lisinopril/Hydrochlorothiazide [Lisinopril-Hctz 20-12.5 mg Tab] 1 each PO DAILY 12/24/18 Lovastatin [Mevacor] 20 mg PO DAILY 12/24/18 Methylphenidate HCl [Ritalin] 20 mg PO TID 12/24/18 Oxcarbazepine [Trileptal] 300 mg PO Q12 12/24/18 Paroxetine HCl [Paxil] 60 mg PO QAM 12/24/18 Trazodone HCl [Desyrel] 100 mg PO QHS 12/24/18 Albuterol Sulfate [Albuterol Sulfate Hfa] 2 puff IH Q4HP PRN 04/20/19 Lansoprazole [Prevacid] 30 mg PO DAILY 04/20/19 Ondansetron [Zofran Odt 4 mg Tablet] 4 mg PO Q4HP PRN MDD FILLED 04/18 FOR 3 DAY SUPPLY 04/20/19 Tapentadol Hydrochloride [Nucynta] 50 mg PO Q8HP PRN MDD FILLED 04/18 FOR 5 DAY SUPPLY 04/20/19 History of Present Illness History of Present Illness: JUDE HI is a 38 year old male patient with past medical history of emh-Qvxqj-Jkaejqw disease and multiple pelvic surgery, hypertension, hyperlipidemia, history of anxiety and depression, bronchial asthma, obesity, tobacco dependence gastroesophageal reflux disease presents with chief complaint of lightheadedness nausea and syncopal episodes. Patient states he was r ecently admitted to the hospital on April 06, 2019 after hernia surgery on 03/29/[address] Dalton. Patient states he would intermittently briefly lose consciousness while looking at his phone and reports this being lightheaded when standing. Patient denies any vomiting, diarrhea, urinary complaint is, external bleeding, headache, blurry vision or any seizure activity. Blood works are unremarkable except he has markedly elevated creatinine of 4.49 BUN of 49 and GFR of 15. Hospital Course Hospital Course: JUDE HI is a 38 year old male patient with past medical history of tju-Qjbrp-Pfktgrz disease and multiple pelvic surgery, hypertension, hyperlipidemia, history of anxiety and depression, bronchial asthma, obesity, tobacco dependence gastroesophageal reflux disease presents with chief complaint of lightheadedness nausea and syncopal episodes. Patient states he was recently admitted to the hospital on April 06, 2019 after hernia surgery on 03/29/[address] Dalton. Patient states he would intermittently briefly lose consciousness while looking at his phone and reports this being lightheaded when standing. Patient denies any vomiting, diarrhea, urinary complaint is, external bleeding, headache, blurry vision or any seizure activity. Blood works are unremarkable except he has markedly elevated creatinine of 4.49 BUN of 49 and GFR of 15. 04/21/2019: Patient seen and examined at bedside. He is awake alert oriented. Not in pain or distress. He has been getting normal saline at rate of 200 mL/h. His creatinine markedly improved yesterday it was 4.49 today it is 1.28. He does not have any new complaint. His potential discharge for tomorrow if his creatinine further drops. 04/22/2019: Patient seen resting in bed comfortably. He is awake alert oriented. Not in pain or distress. Signs are within normal limits. His creatinine further trended down. His creatinine at admission was 4.49 today it is 0.79. Which is completely normalized. Patient advised to hydrate himself as much as he can. I will continue all his home medication and follow-up with his primary care physician in 1 week. Physical Exam Vital Signs: Temp Pulse Resp BP Pulse Ox 97.8 F 78 20 124/69 99 04/22/19 00:00 04/22/19 00:00 04/22/19 00:00 04/22/19 00:00 04/22/19 00:00 Intake & Output 04/21/19 04/22/19 04/23/19 06:59 06:59 06:59 Intake Total 3730 5190 Output Total 2200 3060 Balance 1530 2130 Weight 105.6 kg 108.4 kg General appearance: PRESENT: no acute distress Eye exam: PRESENT: conjunctiva pink Neck exam: ABSENT: carotid bruit, JVD, lymphadenopathy, thyromegaly Respiratory exam: PRESENT: clear to auscultation omer. ABSENT: rales, rhonchi, wheezes Pulses: PRESENT: normal dorsalis pedis pul GI/Abdominal exam: PRESENT: normal bowel sounds, soft. ABSENT: distended, guarding, mass, organolmegaly, rebound, tenderness Neurological exam: PRESENT: alert, awake, oriented to person, oriented to place, oriented to time, oriented to situation Results Laboratory Results: 04/20/19 11:53 04/22/19 05:35 04/21/19 04/22/19 08:37 05:35 Sodium 135.0 L 131.9 L Potassium 4.3 4.3 Chloride 101 100 Carbon Dioxide 25 26 Anion Gap 9 6 BUN 29 H D 17 Creatinine 1.28 H 0.79 Est GFR ( Amer) > 60 > 60 Est GFR (Non-Af Amer) > 60 > 60 Glucose 91 86 Calcium 9.1 8.4 04/20/19 11:53 Creatine Kinase 121 Impressions: Renal Ultrasound 04/20/19 00:00 IMPRESSION: Normal sonographic appearance of the kidneys. Chest X-Ray 04/20/19 11:48 IMPRESSION: NO ACUTE RADIOGRAPHIC FINDING IN THE CHEST. Qualifiers - * PATIENT BEING DISCHARGED WITH ANY OF THE FOLLOWING DIAGNOSIS: No Acute Heart Failure - Is this a Heart Failure Patient?: No LVEF < 40%?: No- if no continue to question #3 3. Anticoagulant therapy for permanect/persistent/paraoxysmal Afib or Aflutter: N/A
[2019-04-22] MEDS: AMLODIPINE BESYLATE 5 MG TABLET PO SCH (09:18)
[2019-04-22] MEDS: DOCUSATE SODIUM 100 MG/10 ML UDC PO SCH (09:18)
[2019-04-22] MEDS: OXCARBAZEPINE 150 MG TABLET PO SCH (09:18)
[2019-04-22 09:28] VITALS: BP 124/69
== END 2019-04-22 10:30 | disposition home or self-care (01) | DRG 684 ==
LOC: ER 10:53 → EH 14:17 → 4S 16:40
PROVIDERS: ADMIT Internal Medicine; ATTEND Internal Medicine
DX: N17.9 Acute kidney failure, unspecified (principal); I10 Essential (primary) hypertension; E78.5 Hyperlipidemia, unspecified; E66.9 Obesity, unspecified; Z68.30 Body mass index [BMI] 30.0-30.9, adult; F41.9 Anxiety disorder, unspecified; F32.9 Major depressive disorder, single episode, unspecified; K21.9 Gastro-esophageal reflux disease without esophagitis; F90.9 Attention-deficit hyperactivity disorder, unspecified type; M10.9 Gout, unspecified; F17.210 Nicotine dependence, cigarettes, uncomplicated; J45.909 Unspecified asthma, uncomplicated; E78.00 Pure hypercholesterolemia, unspecified; Z88.6 Allergy status to analgesic agent; Z79.899 Other long term (current) drug therapy; Z82.49 Family history of ischemic heart disease and other diseases of the circulatory system; Z88.3 Allergy status to other anti-infective agents; Z88.8 Allergy status to other drugs, medicaments and biological substances
CPT/HCPCS: 36415; 51701; 71046; 76770; 80048; 80053; 80307; 81001; 82550; 83735; 85025; 96361; 96374; 96375; 99285; J1644; J1885; J2405; J3490; J7030; S0164

== ENCOUNTER 2019-05-11 19:30 | Emergency (ER) | payer MEDICARE ==
[2019-05-11 19:45] VITALS: BP 127/81
== END 2019-05-11 20:25 | disposition left against medical advice (07) ==
LOC: ER 19:30
DX: Z53.21 Procedure and treatment not carried out due to patient leaving prior to being seen by health care provider (principal); R10.9 Unspecified abdominal pain

== ENCOUNTER 2019-05-12 09:04 | Emergency (ER) | payer MEDICAID, MEDICARE ==
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
[2019-05-12] MEDS ORDERED: ONDANSETRON HCL INJ/PF 4 MG/2 ML SDV IV ONE ×2 (09:42→11:59)
[2019-05-12] MEDS ORDERED: FENTANYL CITRATE INJ/PF 100 MCG/2 ML AMPUL IV ONE (09:42)
[2019-05-12] MEDS: NORMAL SALINE 1000 ML 1,000 ML IV PRN ×2 (10:03→10:36)
[2019-05-12 10:24] LABS: ABSOLUTE BASOPHILS # (AUTO) 0.1 10^3/uL (0.0-0.2); ABSOLUTE EOSINOPHILS # (AUTO) 0.1 10^3/uL (0.0-0.6); ABSOLUTE LYMPHOCYTES (AUTO) 1.2 10^3/uL (0.5-4.7); ABSOLUTE MONOCYTES (AUTO) 0.5 10^3/uL (0.1-1.4); ABSOLUTE NEUT (AUTO) 4.1 10^3/uL (1.7-8.2); BASOPHILS % (AUTO) 0.9 % (0-2); EOSINOPHILS % (AUTO) 1.9 % (0-6); HEMOGLOBIN 14.5 g/dL (13.5-17.0); LYMPHOCYTES % (AUTO) 20.1 % (13-45); MEAN CORPUSCULAR HEMOGLOBIN 34.8 pg (27.0-33.4); MEAN CORPUSCULAR HGB CONC 35.3 g/dL (32.0-36.0); MEAN CORPUSCULAR VOLUME 99 fl (80-97); MONOCYTES % (AUTO) 8.4 % (3-13); PLATELET COUNT 249 10^3/uL (150-450); RED BLOOD COUNT 4.16 10^6/uL (4.35-5.55); RED CELL DISTRIBUTION WIDTH 13.7 % (11.5-14.0); SEGMENTED NEUTROPHILS % (AUTO) 68.7 % (42-78); TOTAL CELLS COUNTED % (AUTO) 100 %
[2019-05-12 10:45] LABS: ALANINE AMINOTRANSFERASE 56 U/L (21-72); ALBUMIN 4.5 g/dL (3.5-5.0); ALKALINE PHOSPHATASE 108 U/L (38-126); ANION GAP 13 (5-19); ASPARTATE AMINO TRANSFERASE 37 U/L (17-59); BILIRUBIN,DIRECT 0.4 mg/dL (0.0-0.4); BILIRUBIN,TOTAL 1.4 mg/dL (0.2-1.3); BLOOD UREA NITROGEN 16 mg/dL (7-20); CALCIUM 9.9 mg/dL (8.4-10.2); CARBON DIOXIDE 26 mmol/L (22-30); CHLORIDE 89 mmol/L (98-107); GLUCOSE 116 mg/dL (75-110); POTASSIUM 4.1 mmol/L (3.6-5.0); SODIUM 128.3 mmol/L (137-145); TOTAL PROTEIN 7.2 g/dL (6.3-8.2)
[2019-05-12 11:35] LABS: APPEARANCE,URINE SLIGHTLY-CLOUDY; BILIRUBIN,URINE NEGATIVE (NEGATIVE); COLOR,URINE AMBER; GLUCOSE, URINE NEGATIVE (NEGATIVE); KETONES,URINE NEGATIVE (NEGATIVE); LEUKOCYTE ESTERASE,URINE NEGATIVE (NEGATIVE); NITRITE,URINE NEGATIVE (NEGATIVE); PROTEIN,URINE 30 mg/dL (NEGATIVE); URINE SPECIFIC GRAVITY 1.023
--- NOTE | 2019-05-12 11:57 | RADIOLOGY REPORT (SQ) ---
EXAM DESCRIPTION: U/S ABDOMEN LIMITED W/O DOP COMPLETED DATE/TIME: 05/12/2019 11:39 am REASON FOR STUDY: diarrhea COMPARISON: None. TECHNIQUE: Dynamic and static grayscale images acquired of the abdomen and recorded on PACS. Additio nal selected color Doppler and spectral images recorded. LIMITATIONS: Limited visualization. Poor acoustical window FINDINGS: PANCREAS: Limited visualization. no masses seen LIVER: Normal size Mild fatty infiltration. No focal masses. LIVER VASCULATURE: Normal directional flow of the main portal vein and hepatic veins. GALLBLADDER: No stones. Normal wall thickness. No pericholecystic fluid. ULTRASOUND-DETECTED MENDEZ'S SIGN: Negative. INTRAHEPATIC DUCTS AND COMMON DUCT: CBD and intrahepatic ducts normal caliber. No filling defects. INFERIOR VENA CAVA: Normal flow. AORTA: No aneurysm. RIGHT KIDNEY: Normal size. Normal echogenicity. No solid or suspicious masses. No hydronephros is. No calcifications. PERITONEAL AND RIGHT PLEURAL SPACE: No ascites or effusions. OTHER: No other significant findings. IMPRESSION: FATTY LIVER. OTHERWISE NORMAL RUQ US VISUALIZED TECHNICAL DOCUMENTATION: JOB ID: [id number]- All Rights Reserved Reading location - IP/workstation name: [email or web address]
[2019-05-12] MEDS ORDERED: HYDROMORPHONE HCL INJ/PF 2 MG/ML AMPULE IV ONE (11:58)
[2019-05-12 13:37] VITALS: BP 146/82
== END 2019-05-12 13:10 | disposition home or self-care (01) ==
LOC: ER 09:04
DX: R19.7 Diarrhea, unspecified (principal); E87.1 Hypo-osmolality and hyponatremia; R11.2 Nausea with vomiting, unspecified; R53.83 Other fatigue; M54.5 Low back pain; R51 Headache; R10.30 Lower abdominal pain, unspecified; K76.0 Fatty (change of) liver, not elsewhere classified; R30.0 Dysuria; I10 Essential (primary) hypertension; J45.909 Unspecified asthma, uncomplicated; F17.210 Nicotine dependence, cigarettes, uncomplicated; Z88.5 Allergy status to narcotic agent; Z88.8 Allergy status to other drugs, medicaments and biological substances; Z88.1 Allergy status to other antibiotic agents
CPT/HCPCS: 96376; 99284; 96361; 96374; 96375; 36415; 85025; 80053; 81001; 76705; J3010; J1170; J2405; J7030

== ENCOUNTER 2019-08-10 17:18 | Emergency (ER) | payer MEDICARE, MEDICAID ==
[2019-08-10] MEDS ORDERED: ONDANSETRON HCL INJ/PF 4 MG/2 ML SDV IV ONE (17:49)
[2019-08-10] MEDS ORDERED: NORMAL SALINE 1000 ML 1,000 ML IV ONE (17:49)
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
--- NOTE | 2019-08-10 18:14 | RADIOLOGY REPORT (SQ) ---
EXAM DESCRIPTION: CHEST 2 VIEWS COMPLETED DATE/TIME: 08/10/2019 6:05 pm REASON FOR STUDY: cough COMPARISON: 04/20/2019 EXAM PARAMETERS: NUMBER OF VIEWS: two views TECHNIQUE: Digital Frontal and Lateral radiographic views of the chest acquired. RADIATION DOSE: NA LIMITATIONS: none FINDINGS: LUNGS AND PLEURA: No opacities, masses or pneumothorax. No pleural effusion. MEDIASTINUM AND HILAR STRUCTURES: No masses or contour abnormalities. HEART AND VASCULAR STRUCTURES: Heart normal size. No evidence for failure. BONES: No acute findings. HARDWARE: Incidental note is made of lower cervical ACDF with interbody spacer. This device appears be grossly stable. OTHER: No other significant finding. IMPRESSION: NO ACUTE RADIOGRAPHIC FINDING IN THE CHEST. TECHNICAL DOCUMENTATION: JOB ID: [id number] [employer]- All Rights Reserved Reading location - IP/workstation name: [email or web address]
[2019-08-10 18:18] LABS: APPEARANCE,URINE CLEAR; BILIRUBIN,URINE NEGATIVE (NEGATIVE); COLOR,URINE YELLOW; GLUCOSE, URINE NEGATIVE (NEGATIVE); KETONES,URINE NEGATIVE (NEGATIVE); PROTEIN,URINE NEGATIVE (NEGATIVE); URINE SPECIFIC GRAVITY 1.014; UROBILINOGEN,URINE NEGATIVE mg/dL (<2.0)
[2019-08-10 18:46] LABS: ABSOLUTE EOSINOPHILS # (AUTO) 0.2 10^3/uL (0.0-0.6); ABSOLUTE LYMPHOCYTES (AUTO) 1.5 10^3/uL (0.5-4.7); ABSOLUTE MONOCYTES (AUTO) 0.4 10^3/uL (0.1-1.4); ABSOLUTE NEUT (AUTO) 4.2 10^3/uL (1.7-8.2); BASOPHILS % (AUTO) 0.6 % (0-2); EOSINOPHILS % (AUTO) 2.9 % (0-6); HEMATOCRIT 39.2 % (37.9-51.0); HEMOGLOBIN 13.8 g/dL (13.5-17.0); LYMPHOCYTES % (AUTO) 23.5 % (13-45); MEAN CORPUSCULAR HEMOGLOBIN 35.4 pg (27.0-33.4); MEAN CORPUSCULAR HGB CONC 35.1 g/dL (32.0-36.0); MEAN CORPUSCULAR VOLUME 101 fl (80-97); MONOCYTES % (AUTO) 6.3 % (3-13); PLATELET COUNT 232 10^3/uL (150-450); RED BLOOD COUNT 3.89 10^6/uL (4.35-5.55); RED CELL DISTRIBUTION WIDTH 14.4 % (11.5-14.0); SEGMENTED NEUTROPHILS % (AUTO) 66.7 % (42-78); TOTAL CELLS COUNTED % (AUTO) 100 %; WHITE BLOOD COUNT 6.4 10^3/uL (4.0-10.5)
[2019-08-10 18:49] LABS: ALBUMIN 4.3 g/dL (3.5-5.0); ALKALINE PHOSPHATASE 70 U/L (38-126); ANION GAP 14 (5-19); ASPARTATE AMINO TRANSFERASE 42 U/L (17-59); BILIRUBIN,DIRECT 0.2 mg/dL (0.0-0.4); BILIRUBIN,TOTAL 0.3 mg/dL (0.2-1.3); BLOOD UREA NITROGEN 10 mg/dL (7-20); CALCIUM 9.4 mg/dL (8.4-10.2); CARBON DIOXIDE 25 mmol/L (22-30); CHLORIDE 92 mmol/L (98-107); GLUCOSE 99 mg/dL (75-110); POTASSIUM 3.7 mmol/L (3.6-5.0); TOTAL PROTEIN 6.9 g/dL (6.3-8.2)
[2019-08-10] MEDS ORDERED: ACETAMINOPHEN 325 MG TABLET PO ONE (19:14)
[2019-08-10] MEDS ORDERED: DEXAMETHASONE SOD PHOS INJ 10 MG/1 ML VIAL IV ONE (20:07)
[2019-08-10] MEDS ORDERED: METHOCARBAMOL 500 MG TABLET PO ONE (20:08)
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
[2019-08-10 20:46] VITALS: BP 142/85
== END 2019-08-10 20:45 | disposition home or self-care (01) ==
LOC: ER 17:18
DX: J40 Bronchitis, not specified as acute or chronic (principal); R51 Headache; M54.9 Dorsalgia, unspecified; R10.9 Unspecified abdominal pain; M54.2 Cervicalgia; R05 Cough; R49.0 Dysphonia; M54.5 Low back pain; R11.0 Nausea; F17.200 Nicotine dependence, unspecified, uncomplicated; I10 Essential (primary) hypertension
CPT/HCPCS: 36415; 83690; 85025; 80053; 81001; 71046; A9270 ×2; J2405; J7030; J1100

== ENCOUNTER 2019-08-13 12:31 | Emergency (ER) | payer MEDICARE, MEDICAID ==
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
[2019-08-13 13:13] LABS: ABSOLUTE BASOPHILS # (AUTO) 0.1 10^3/uL (0.0-0.2); ABSOLUTE EOSINOPHILS # (AUTO) 0.1 10^3/uL (0.0-0.6); ABSOLUTE LYMPHOCYTES (AUTO) 1.6 10^3/uL (0.5-4.7); ABSOLUTE MONOCYTES (AUTO) 0.6 10^3/uL (0.1-1.4); ABSOLUTE NEUT (AUTO) 5.6 10^3/uL (1.7-8.2); BASOPHILS % (AUTO) 1.1 % (0-2); EOSINOPHILS % (AUTO) 1.3 % (0-6); LYMPHOCYTES % (AUTO) 20.2 % (13-45); MEAN CORPUSCULAR HEMOGLOBIN 35.5 pg (27.0-33.4); MEAN CORPUSCULAR HGB CONC 34.8 g/dL (32.0-36.0); MEAN CORPUSCULAR VOLUME 102 fl (80-97); PLATELET COUNT 256 10^3/uL (150-450); RED BLOOD COUNT 4.21 10^6/uL (4.35-5.55); RED CELL DISTRIBUTION WIDTH 14.8 % (11.5-14.0); SEGMENTED NEUTROPHILS % (AUTO) 70.4 % (42-78); TOTAL CELLS COUNTED % (AUTO) 100 %; WHITE BLOOD COUNT 7.9 10^3/uL (4.0-10.5)
[2019-08-13 13:15] LABS: APPEARANCE,URINE CLEAR; BILIRUBIN,URINE NEGATIVE (NEGATIVE); COLOR,URINE YELLOW; GLUCOSE, URINE NEGATIVE (NEGATIVE); KETONES,URINE NEGATIVE (NEGATIVE); LEUKOCYTE ESTERASE,URINE NEGATIVE (NEGATIVE); NITRITE,URINE NEGATIVE (NEGATIVE); PROTEIN,URINE NEGATIVE (NEGATIVE); URINE SPECIFIC GRAVITY 1.015; UROBILINOGEN,URINE NEGATIVE mg/dL (<2.0)
[2019-08-13 13:30] LABS: ALBUMIN 4.5 g/dL (3.5-5.0); ALKALINE PHOSPHATASE 77 U/L (38-126); ANION GAP 12 (5-19); ASPARTATE AMINO TRANSFERASE 80 U/L (17-59); BILIRUBIN,DIRECT 0.2 mg/dL (0.0-0.4); BILIRUBIN,TOTAL 0.5 mg/dL (0.2-1.3); BLOOD UREA NITROGEN 14 mg/dL (7-20); CARBON DIOXIDE 27 mmol/L (22-30); CHLORIDE 100 mmol/L (98-107); GLUCOSE 91 mg/dL (75-110); POTASSIUM 4.1 mmol/L (3.6-5.0); TOTAL PROTEIN 7.6 g/dL (6.3-8.2); URINE AMPHETAMINES SCREEN NEGATIVE; URINE BARBITURATES SCREEN NEGATIVE; URINE BENZODIAZEPINES SCREEN UNCONFIRMED POSITIVE; URINE COCAINE SCREEN NEGATIVE; URINE MARIJUANA (THC) SCREEN NEGATIVE; URINE METHADONE SCREEN NEGATIVE; URINE PHENCYCLIDINE SCREEN NEGATIVE
[2019-08-13 13:36] LABS: ACETAMINOPHEN < 10 ug/mL (10-30); ALCOHOL < 10 mg/dL (NONE DETECTED); SALICYLATE < 1.0 mg/dL (2.0-20.0)
[2019-08-13] MEDS ORDERED: METHYLPREDNISOLONE INJ 125 MG/2 ML SDV IM ONE (13:39)
[2019-08-13] MEDS ORDERED: IPRATROPIUM/ALBUTEROL 0.5-2.5 MG/3 ML AMPUL NEB ONE (13:39)
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
[2019-08-13] MEDS ORDERED: ACETAMINOPHEN 325 MG TABLET PO ONE (13:40)
[2019-08-13] MEDS ORDERED: ONDANSETRON 4 MG TAB.RAPDIS PO ONE (13:40)
[2019-08-13] MEDS ORDERED: KETOROLAC TROMETHAMINE INJ/PF 30 MG/1 ML SDV IM ONE (13:40)
[2019-08-13] MEDS ORDERED: DIPHENHYDRAMINE HCL 50 MG CAPSULE PO ONE (13:41)
--- NOTE | 2019-08-13 14:13 | RADIOLOGY REPORT (SQ) ---
EXAM DESCRIPTION: CHEST 2 VIEWS COMPLETED DATE/TIME: 08/13/2019 2:00 pm REASON FOR STUDY: cough COMPARISON: 08/10/2019 EXAM PARAMETERS: NUMBER OF VIEWS: two views TECHNIQUE: Digital Frontal and Lateral radiographic views of the chest acquired. RADIATION DOSE: NA LIMITATIONS: none FINDINGS: LUNGS AND PLEURA: No opacities, masses or pneumothorax. No pleural effusion. MEDIASTINUM AND HILAR STRUCTURES: No masses or contour abnormalities. HEART AND VASCULAR STRUCTURES: Heart normal size. No evidence for failure. BONES: No acute findings. HARDWARE: None in the chest. OTHER: No other significant finding. IMPRESSION: NO ACUTE RADIOGRAPHIC FINDING IN THE CHEST. TECHNICAL DOCUMENTATION: JOB ID: [id number] [employer]- All Rights Reserved Reading location - IP/workstation name: [email or web address]
--- NOTE | 2019-08-13 15:58 | PSYCHOLOGICAL NOTE ---
Psych Note - Psych Note Date seen by psych provider: 08/13/19 Time seen by psych provider: 14:00 Psych Note: Reason for Consult: Suicidal and homicidal ideation Patient presented to [facility] ED with increased thoughts of suicidal ideation and homicidal ideation. Patient reports that he thought about cutting his wrists 2 days ago and even held a razor to his wrist however ended up not cutting himself at the last minute. He reports today it got bad enough that his family took him to his outpatient mental health provider; his provider sent to the emergency department while they attempted to obtain a bed for him at [facility]. He states that he does take Trileptal and Paxil in addition to Adderall and Valium and trazodone. He states they were going to replace Trileptal and Paxil with Vraylar however his insurance has not approved it yet. He reports that he is is compliant on medication however admits that he has not taken any today and may have missed taking his Adderall yesterday. He reports he has been inpatient once previously however it was a few years ago. He reports that he uses alcohol socially and smoked marijuana approximately 2 and half weeks ago. Clinician contacted [facility]. They report they have never heard of this patient and confirm they have not received a call from [facility]. They request information be sent to their facility for review. Clinician contacted [facility] and spoke to Tima Vicente' assigned nurse, Vanesa, with concerns that they allowed a patient that they felt was suicidal to transport himself to the emergency department rather than obtaining IVC paperwork. They report that the patient's parents contracted for safety stating they felt safe to transport the patient to the hospital just not to take him home with them. Patient's parents work full-time and were unable to provide necessary supervision. Vanesa continued to report that they were attempting to obtain placement for the patient and until that placement was found he was requested he go to [facility] ED for his safety. They further disclosed that [facility] has a bed available for him and he can go straight to [facility] now. Clinician explained that unfortunately, standard operating procedure must be conducted fully once a patient arrives, and since both the facility ([facility]) and provider felt the patient needed to be IVC and sent to [facility], the patient now must go through full psychiatric evaluation and medical evaluation here at [facility]. If he meets the criteria, he will be transported under IVC by [employer]. It was reminded to [facility] that this is a very time consuming (sometimes hours at [facility] due to waiting for availability of deputy sheriff generalist/bailiff to transport then additional time once transported to [facility] for processing) and many times traumatic experience for patients; especially when the deputy sheriff generalist/bailiff department must transport in handcuffs. It was recommended that if [facility] felt the patient was safe to transport with his family but still needed to go inpatient psychiatric treatment, the best course of action would have been to go straight to a psychiatric hospital where they could have done an evaluation. If they did not have a bed available for them they could have placed him under involuntary commitment and sent the patient to [facility] ED for further assistance. [facility] was again reminded that [facility] is a medical hospital not a psychiatric hospital and if [facility] feels a patient needs IVC, there is a liability issue allowing the patient or patient's family to transport to a different facility. Patient is alert and orientated to person, place, time and circumstance. Mood is dsyphoric with flat affect. Clinician notes patient was receiving a betito thing treatment during evaluation. Patient endorses suicidal ideation with a plan to cut. Patient endorses passive homicidal ideation i.e. no plans means or intent. Delusions are absent behaviors congruent with an intact reality based presentation i.e. organized linear thought process. Eye contact is well- maintained. Conversational speech is overall within normal rate, tone and prosody. However patient is noted to be receiving a breathing treatment at times must stop for extra breath. Intellectual abilities appear to be within the average range. Attention and concentration are fair. Insight, judgment, impulse control are fair. Bipolar per history provided by patient No medication recommendations at this time Impression plan: Patient is recommended for IVC. Patient presents with suicidal ideation with plan of cutting. Patient did stop himself 2 days ago however reports increase in thoughts since then. Patient presented with passive homicidal ideation. Patient is on multiple medications to include Trileptal, Paxil, Adderall, Valium and trazodone. Patient's outpatient mental health provider feels patient would benefit from inpatient psychiatric treatment for medication management changes. [facility] accepted the patient and transportation has been requested. Angelic Rodriguez was consulted to care management of this patient; attending physicians in agreement with recommendations and disposition.
[2019-08-13 16:36] VITALS: BP 110/63
--- NOTE | 2019-08-13 17:59 | EKG REPORT ---
SEVERITY:- NORMAL ECG - SINUS RHYTHM : Confirmed by: David Up 13-Aug-2019 17:59:38
== END 2019-08-13 17:35 ==
LOC: ER 12:31
DX: R45.851 Suicidal ideations (principal); R45.850 Homicidal ideations; F39 Unspecified mood [affective] disorder; F31.9 Bipolar disorder, unspecified; R11.0 Nausea; R05 Cough; R09.81 Nasal congestion; F17.200 Nicotine dependence, unspecified, uncomplicated; J45.909 Unspecified asthma, uncomplicated; I10 Essential (primary) hypertension
CPT/HCPCS: 93005; 36415; 80307 ×4; 85025; 80053; 81001; 71046; 93010; A9270 ×4; J2930; J1885; J7620; S0119

== ENCOUNTER 2019-09-15 08:16 | Emergency (ER) | payer MEDICARE, MEDICAID ==
--- NOTE | 2019-09-15 09:00 | RADIOLOGY REPORT (SQ) ---
EXAM DESCRIPTION: WRIST RIGHT 3 VIEWS COMPLETED DATE/TIME: 09/15/2019 8:36 am REASON FOR STUDY: injury, pain, decreased ROM COMPARISON: Right wrist films 10/15/2015, 12/10/2016 NUMBER OF VIEWS: Three views. TECHNIQUE: AP, lateral, and oblique radiographic images acquired of the right wrist. LIMITATIONS: None. FINDINGS: MINERALIZATION: Normal. BONES: No acute fracture or dislocation. No worrisome bone lesions. SOFT TISSUES: No soft tissue swelling. No foreign body. OTHER: Old healed 5th metacarpal fracture. Slight widening of the scapholunate interval could indica te ligamentous injury. IMPRESSION: Slight widening of the scapholunate interval could indicate ligamentous injury. No acute fracture or malalignment. Old healed right 5th metacarpal boxer fracture TECHNICAL DOCUMENTATION: JOB ID: [id number] [employer]- All Rights Reserved Reading location - IP/workstation name: [facility]
[2019-09-15] MEDS ORDERED: OXYCODONE-ACETAMINOPHEN 5-325 MG TABLET PO ONE (09:58)
[2019-09-15 10:56] VITALS: BP 134/91
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
== END 2019-09-15 12:14 | disposition home or self-care (01) ==
LOC: ER 08:16
PROC: 2W3CX1Z Immobilization of Right Lower Arm using Splint (ICD-10-PCS; principal; 2019-09-15)
DX: S69.91XA Unspecified injury of right wrist, hand and finger(s), initial encounter (principal); M25.531 Pain in right wrist; W01.0XXA Fall on same level from slipping, tripping and stumbling without subsequent striking against object, initial encounter; F17.210 Nicotine dependence, cigarettes, uncomplicated; I10 Essential (primary) hypertension; J45.909 Unspecified asthma, uncomplicated
CPT/HCPCS: 99283; 73110; 29125; A9270

== ENCOUNTER 2019-10-03 08:51 | Emergency (ER) | payer MEDICARE, MEDICAID ==
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
[2019-10-03] MEDS ORDERED: PREDNISONE 20 MG TABLET PO ONE (09:16)
[2019-10-03] MEDS ORDERED: IPRATROPIUM/ALBUTEROL 0.5-2.5 MG/3 ML AMPUL NEB ONE (09:16)
[2019-10-03] MEDS ORDERED: ACETAMINOPHEN 325 MG TABLET PO ONE (09:32)
--- NOTE | 2019-10-03 09:49 | RADIOLOGY REPORT (SQ) ---
EXAM DESCRIPTION: CHEST 2 VIEWS COMPLETED DATE/TIME: 10/03/2019 9:07 am REASON FOR STUDY: Shortness of breath COMPARISON: Chest films 04/06/2019, 04/20/2019, 08/10/2019, 08/13/2019 EXAM PARAMETERS: NUMBER OF VIEWS: two views TECHNIQUE: Digital Frontal and Lateral radiographic views of the chest acquired. RADIATION DOSE: NA LIMITATIONS: none FINDINGS: LUNGS AND PLEURA: No opacities, masses or pneumothorax. No pleural effusion. MEDIASTINUM AND HILAR STRUCTURES: No masses or contour abnormalities. HEART AND VASCULAR STRUCTURES: Heart normal size. No evidence for failure. BONES: No acute findings. HARDWARE: None in the chest. OTHER: No other significant finding. IMPRESSION: NO ACUTE RADIOGRAPHIC FINDING IN THE CHEST. TECHNICAL DOCUMENTATION: JOB ID: [id number] [employer]- All Rights Reserved Reading location - IP/workstation name: [email or web address]
[2019-10-03] MEDS ORDERED: ALBUTEROL SULFATE HFA (90 MCG/PUFF) 8 GM MDI (1 MDI/ER DISP) IH ONE (09:51)
[2019-10-03 10:04] VITALS: BP 142/78
== END 2019-10-03 10:01 | disposition home or self-care (01) ==
LOC: ER 08:51
DX: R05 Cough (principal); R09.81 Nasal congestion; J45.909 Unspecified asthma, uncomplicated; R09.89 Other specified symptoms and signs involving the circulatory and respiratory systems; F17.200 Nicotine dependence, unspecified, uncomplicated; I10 Essential (primary) hypertension
CPT/HCPCS: 94640; 99283; 71046; A9270 ×4; J3490; J7512; J7620

== ENCOUNTER 2019-10-10 09:07 | Emergency (ER) | payer MEDICARE, MEDICAID ==
[2019-10-10] MEDS ORDERED: LISINOPRIL 10 MG TABLET PO ONE (10:03)
[2019-10-10] MEDS ORDERED: DEXAMETHASONE SOD PHOS INJ 10 MG/1 ML VIAL IM ONE (10:09)
[2019-10-10] MEDS ORDERED: IPRATROPIUM/ALBUTEROL 0.5-2.5 MG/3 ML AMPUL NEB ONE (10:09)
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
--- NOTE | 2019-10-10 10:50 | RADIOLOGY REPORT (SQ) ---
EXAM DESCRIPTION: CHEST 2 VIEWS COMPLETED DATE/TIME: 10/10/2019 10:34 am REASON FOR STUDY: cough, wheezing COMPARISON: 10/03/2019 EXAM PARAMETERS: NUMBER OF VIEWS: two views TECHNIQUE: Digital Frontal and Lateral radiographic views of the chest acquired. RADIATION DOSE: NA LIMITATIONS: none FINDINGS: LUNGS AND PLEURA: No opacities, masses or pneumothorax. No pleural effusion. MEDIASTINUM AND HILAR STRUCTURES: No masses or contour abnormalities. HEART AND VASCULAR STRUCTURES: Heart normal size. No evidence for failure. BONES: No acute findings. HARDWARE: Cervical fusion hardware. OTHER: No other significant finding. IMPRESSION: NO ACUTE RADIOGRAPHIC FINDING IN THE CHEST. TECHNICAL DOCUMENTATION: JOB ID: [id number] [employer].- All Rights Reserved Reading location - IP/workstation name: [email or web address]
[2019-10-10 11:19] VITALS: BP 140/78
== END 2019-10-10 11:45 | disposition home or self-care (01) ==
LOC: ER 09:07
DX: R05 Cough (principal); J45.909 Unspecified asthma, uncomplicated; I10 Essential (primary) hypertension; M54.9 Dorsalgia, unspecified; F17.200 Nicotine dependence, unspecified, uncomplicated
CPT/HCPCS: 71046; A9270 ×2; J1100; 94640; 96374; 99283; J7620

== ENCOUNTER → 2019-10-18 | Emergency (ER) | payer MEDICARE, MEDICAID ==
[~2019-10-18] MED LIST changes: +ASPIRIN 81 MG TABLET, CHEWABLE ONE; +ASPIRIN 81 MG TABLET, CHEWABLE PO SCH; -CEFAZOLIN 2 GM/D5W RTU 2 GM/50 ML RTUPB IV ONE; -CEFAZOLIN 2 GM/D5W RTU 2 GM/50 ML RTUPB IV PRN; +CLOPIDOGREL BISULFATE 300 MG TABLET ONE; +CLOPIDOGREL BISULFATE 75 MG TABLET PO ONE; +HEPARIN SOD (PORCINE) 1,000 UNIT/ML 10 ML VIAL IV ONE; +HEPARIN SOD (PORCINE) 1,000 UNIT/ML 10 ML VIAL ONE; +HEPARIN SODIUM,PORCINE/D5W 25,000 UNIT/250 ML RTUINJ IV PRN; -IBUPROFEN 800 MG in NORMAL SALINE 250 ML IV PRN; -LACTATED RINGERS 1000 ML IV PRN; -LIDOCAINE 0.5% INJ-PF (5 MG/ML) 50 ML SDV SUBCUT PRN; +NITROGLYCERIN 0.4 MG/TAB 25 TAB/BOTTLE ONE; +NITROGLYCERIN 0.4 MG/TAB 25 TAB/BOTTLE SL PRN; +NITROGLYCERIN/D5W 50 MG/250 ML RTUINJ IV PRN; +NORMAL SALINE 1000 ML 1,000 ML IV PRN; -PREGABALIN 50 MG CAPSULE ONE; -PREGABALIN 50 MG CAPSULE PO PRN; +TENECTEPLASE INJ 50 MG KIT IV ONE
[2019-10-18 14:32] LABS: APPEARANCE,URINE CLEAR; BILIRUBIN,URINE NEGATIVE (NEGATIVE); COLOR,URINE STRAW; GLUCOSE, URINE NEGATIVE (NEGATIVE); KETONES,URINE NEGATIVE (NEGATIVE); LEUKOCYTE ESTERASE,URINE NEGATIVE (NEGATIVE); NITRITE,URINE NEGATIVE (NEGATIVE); PROTEIN,URINE NEGATIVE (NEGATIVE); URINE SPECIFIC GRAVITY 1.012; UROBILINOGEN,URINE NEGATIVE mg/dL (<2.0)
[2019-10-18 14:40] LABS: ABSOLUTE LYMPHOCYTES (AUTO) 0.9 10^3/uL (0.5-4.7); ABSOLUTE MONOCYTES (AUTO) 0.5 10^3/uL (0.1-1.4); ABSOLUTE NEUT (AUTO) 11.1 10^3/uL (1.7-8.2); BASOPHILS % (AUTO) 0.1 % (0-2); EOSINOPHILS % (AUTO) 0.1 % (0-6); HEMATOCRIT 43.8 % (37.9-51.0); HEMOGLOBIN 15.2 g/dL (13.5-17.0); LYMPHOCYTES % (AUTO) 7.4 % (13-45); MEAN CORPUSCULAR HEMOGLOBIN 34.5 pg (27.0-33.4); MEAN CORPUSCULAR HGB CONC 34.7 g/dL (32.0-36.0); MEAN CORPUSCULAR VOLUME 99 fl (80-97); MONOCYTES % (AUTO) 4.4 % (3-13); PLATELET COUNT 251 10^3/uL (150-450); RED BLOOD COUNT 4.41 10^6/uL (4.35-5.55); RED CELL DISTRIBUTION WIDTH 13.6 % (11.5-14.0); TOTAL CELLS COUNTED % (AUTO) 100 %; WHITE BLOOD COUNT 12.6 10^3/uL (4.0-10.5)
[2019-10-18 14:42] LABS: ALBUMIN 4.5 g/dL (3.5-5.0); ALKALINE PHOSPHATASE 57 U/L (38-126); ANION GAP 12 (5-19); ASPARTATE AMINO TRANSFERASE 33 U/L (17-59); BILIRUBIN,DIRECT 0.3 mg/dL (0.0-0.4); BILIRUBIN,TOTAL 0.7 mg/dL (0.2-1.3); BLOOD UREA NITROGEN 20 mg/dL (7-20); CALCIUM 9.5 mg/dL (8.4-10.2); CARBON DIOXIDE 32 mmol/L (22-30); CHLORIDE 84 mmol/L (98-107); GLUCOSE 105 mg/dL (75-110); POTASSIUM 5.6 mmol/L (3.6-5.0); TOTAL PROTEIN 7.3 g/dL (6.3-8.2)
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
--- NOTE | 2019-10-18 15:55 | RADIOLOGY REPORT (SQ) ---
EXAM DESCRIPTION: CHEST SINGLE VIEW COMPLETED DATE/TIME: 10/18/2019 3:40 pm REASON FOR STUDY: chest pain COMPARISON: 10/10/2019. EXAM PARAMETERS: NUMBER OF VIEWS: One view. TECHNIQUE: Single frontal radiographic view of the chest acquired. RADIATION DOSE: NA LIMITATIONS: None. FINDINGS: LUNGS AND PLEURA: No opacities, masses or pneumothorax. No pleural effusion. MEDIASTINUM AND HILAR STRUCTURES: No masses. Contour normal. HEART AND VASCULAR STRUCTURES: Heart normal in size. Normal vasculature. BONES: No acute findings. HARDWARE: None in the chest. OTHER: No other significant finding. IMPRESSION: NO ACUTE RADIOGRAPHIC FINDING IN THE CHEST. TECHNICAL DOCUMENTATION: JOB ID: [id number] [employer]- All Rights Reserved Reading location - IP/workstation name: [email or web address]
--- NOTE | 2019-10-18 15:56 | EKG REPORT ---
SEVERITY:- NORMAL ECG - SINUS RHYTHM ST ELEV, PROBABLE NORMAL EARLY REPOL PATTERN : Confirmed by: David Up 18-Oct-2019 15:56:01
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
[2019-10-18 16:02] VITALS: BP 153/84
[2019-10-18 16:36] LABS: INTERNATIONAL RATION (INR) 0.96; PROTHROMBIN TIME 12.8 SEC (11.4-15.4)
[2019-10-18 16:37] LABS: PARTIAL THROMBOPLASTIN TIME 25.3 SEC (23.5-35.8)
--- NOTE | 2019-10-18 16:47 | EKG REPORT ---
SEVERITY:- BORDERLINE ECG - SINUS RHYTHM BORDERLINE T ABNORMALITIES, ANT-LAT LEADS : Confirmed by: David Up 18-Oct-2019 16:46:22
[2019-10-18 17:16] LABS: CREATINE KINASE MB 6.76 ng/mL (<4.55); TROPONIN I < 0.012 ng/mL
== END | disposition short-term general hospital (02) ==
LOC: ER 13:20
DX: I21.3 ST elevation (STEMI) myocardial infarction of unspecified site (principal); R11.0 Nausea; J44.9 Chronic obstructive pulmonary disease, unspecified; R06.02 Shortness of breath; R20.2 Paresthesia of skin; I10 Essential (primary) hypertension; E66.9 Obesity, unspecified; E78.00 Pure hypercholesterolemia, unspecified; Z88.8 Allergy status to other drugs, medicaments and biological substances; Z88.1 Allergy status to other antibiotic agents; Z88.6 Allergy status to analgesic agent
CPT/HCPCS: 93005; 99291; 96375; 96365; 36415; 82553; 83690; 85025; 85610; 85730; 80053; 81001; 84484; 71045; 93010; J3101; A9270 ×3; J1644; J3490

== ENCOUNTER 2019-11-04 16:00 | Emergency (ER) | payer MEDICARE, MEDICAID ==
[2019-11-04] MEDS ORDERED: ASPIRIN 81 MG TABLET, CHEWABLE PO ONE (16:58)
[2019-11-04] MEDS ORDERED: ONDANSETRON 4 MG TAB.RAPDIS PO ONE ×2 (16:59→19:04)
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
[2019-11-04 17:31] LABS: ABSOLUTE BASOPHILS # (AUTO) 0.1 10^3/uL (0.0-0.2); ABSOLUTE EOSINOPHILS # (AUTO) 0.2 10^3/uL (0.0-0.6); ABSOLUTE LYMPHOCYTES (AUTO) 0.9 10^3/uL (0.5-4.7); ABSOLUTE MONOCYTES (AUTO) 0.5 10^3/uL (0.1-1.4); ABSOLUTE NEUT (AUTO) 5.8 10^3/uL (1.7-8.2); EOSINOPHILS % (AUTO) 2.2 % (0-6); HEMATOCRIT 37.8 % (37.9-51.0); HEMOGLOBIN 13.4 g/dL (13.5-17.0); LYMPHOCYTES % (AUTO) 11.6 % (13-45); MEAN CORPUSCULAR HEMOGLOBIN 35.2 pg (27.0-33.4); MEAN CORPUSCULAR HGB CONC 35.5 g/dL (32.0-36.0); MEAN CORPUSCULAR VOLUME 99 fl (80-97); MONOCYTES % (AUTO) 7.2 % (3-13); PLATELET COUNT 149 10^3/uL (150-450); RED BLOOD COUNT 3.81 10^6/uL (4.35-5.55); RED CELL DISTRIBUTION WIDTH 14.7 % (11.5-14.0); TOTAL CELLS COUNTED % (AUTO) 100 %; WHITE BLOOD COUNT 7.4 10^3/uL (4.0-10.5)
[2019-11-04 17:56] LABS: ALBUMIN 4.1 g/dL (3.5-5.0); ALKALINE PHOSPHATASE 62 U/L (38-126); ANION GAP 11 (5-19); ASPARTATE AMINO TRANSFERASE 37 U/L (17-59); BILIRUBIN,DIRECT 0.3 mg/dL (0.0-0.4); BILIRUBIN,TOTAL 0.6 mg/dL (0.2-1.3); BLOOD UREA NITROGEN 10 mg/dL (7-20); CALCIUM 8.7 mg/dL (8.4-10.2); CARBON DIOXIDE 25 mmol/L (22-30); CHLORIDE 90 mmol/L (98-107); GLUCOSE 81 mg/dL (75-110); POTASSIUM 4.3 mmol/L (3.6-5.0); TOTAL PROTEIN 6.9 g/dL (6.3-8.2)
[2019-11-04] MEDS ORDERED: IPRATROPIUM/ALBUTEROL 0.5-2.5 MG/3 ML AMPUL NEB ONE (18:02)
--- NOTE | 2019-11-04 18:08 | RADIOLOGY REPORT (SQ) ---
EXAM DESCRIPTION: CHEST 2 VIEWS COMPLETED DATE/TIME: 11/04/2019 5:40 pm REASON FOR STUDY: cp, cough COMPARISON: 10/18/2019. EXAM PARAMETERS: NUMBER OF VIEWS: two views TECHNIQUE: Digital Frontal and Lateral radiographic views of the chest acquired. RADIATION DOSE: NA LIMITATIONS: none FINDINGS: LUNGS AND PLEURA: Curvilinear atelectasis in the right lung. No lobar infiltrate, masses or pneumothorax. No pleural effusion. MEDIASTINUM AND HILAR STRUCTURES: No masses or contour abnormalities. HEART AND VASCULAR STRUCTURES: Heart normal size. No evidence for failure. BONES: No acute findings. HARDWARE: Hardware in the cervical spine. OTHER: No other significant finding. IMPRESSION: FOCAL LINEAR ATELECTASIS IN THE RIGHT LUNG. OTHERWISE NO ACUTE RADIOGRAPHIC FINDING IN THE CHEST. TECHNICAL DOCUMENTATION: JOB ID: [id number] [employer]- All Rights Reserved Reading location - IP/workstation name: [email or web address]
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
[2019-11-04] MEDS ORDERED: NORMAL SALINE 1000 ML 1,000 ML IV ONE (18:32)
--- NOTE | 2019-11-04 18:57 | RADIOLOGY REPORT (SQ) ---
EXAM DESCRIPTION: CTA CHEST COMPLETED DATE/TIME: 11/04/2019 6:37 pm REASON FOR STUDY: eval for PE COMPARISON: None. TECHNIQUE: CT scan of the chest performed using helical scanning technique with dynamic intravenous contrast injection. Images reviewed with lung, soft tissue and bone windows. Reconstructed coronal and sagittal MPR images reviewed. Additional 3 dimensional post-processing performed to develop Maximal Intensity Projection images (FL P). All images stored on PACS. All CT scanners at this facility use dose modulation, iterative reconstruction, and/or weight based d osing when appropriate to reduce radiation dose to as low as reasonably achievable (ALARA). [facility]: Dose Right [facility]: CareDose [facility]: Dose Right [facility]: Teradose 4D [facility]: Solexant CONTRAST TYPE AND DOSE: contrast/concentration: Isovue 350.00 mg/ml; Total Contrast Delivered: 71.0 ml; Total Saline Delivered: 26.0 ml Contrast bolus adequate for pulmonary arteries and aorta. RENAL FUNCTION: BUN 10 creatinine 0.71. RADIATION DOSE: CT Rad equipment meets quality standard of care and radiation dose reduction techniq ues were employed. CTDIvol: 13.2 - 32.8 mGy. DLP: 1231 mGy-cm. . LIMITATIONS: None. FINDINGS: LUNGS AND PLEURA: There are a few linear and indistinct ground-glass opacities in the righ t lung. No pleural effusions or pleural calcifications. AORTA AND GREAT VESSELS: No aneurysm. No dissection. HEART: No pericardial effusion. No significant coronary artery calcifications. PULMONARY ARTERIES: No emboli visualized in the main pulmonary arteries or the segmental branches. HILAR AND MEDIASTINAL STRUCTURES: No identified masses or abnormal nodes. HARDWARE: None in the chest. UPPER ABDOMEN: No significant findings. Limited exam. THYROID AND OTHER SOFT TISSUES: No masses. No adenopathy. BONES: No acute or significant finding. 3D MIPS: Confirm above findings. OTHER: No other significant finding. IMPRESSION: 1. NORMAL CTA OF THE CHEST. NO PULMONARY EMBOLI. 2. A FEW FAINT LINEAR AND INDISTINCT GROUND-GLASS OPACITIES IN THE RIGHT LUNG. NONSPECIFIC. COULD B E DUE TO ATELECTASIS VERSUS PNEUMONITIS. COMMENT: Quality ID # [id number]: Final reports with documentation of one or more dose reduction techniques (e.g., Automated exposure control, adjustment of the mA and/or kV according to patient size, use of iterative reconstruction technique) TECHNICAL DOCUMENTATION: JOB ID: [id number] [employer]- All Rights Reserved Reading location - IP/workstation name: [email or web address]
[2019-11-04] MEDS ORDERED: OXYCODONE-ACETAMINOPHEN 5-325 MG TABLET PO ONE (19:04)
[2019-11-04 19:06] VITALS: BP 123/64
--- NOTE | 2019-11-04 22:11 | EKG REPORT ---
SEVERITY:- OTHERWISE NORMAL ECG - SINUS TACHYCARDIA : Confirmed by: David Up 04-Nov-2019 22:11:10
== END 2019-11-04 19:20 | disposition home or self-care (01) ==
LOC: ER 16:00
DX: R07.1 Chest pain on breathing (principal); E87.1 Hypo-osmolality and hyponatremia; J44.9 Chronic obstructive pulmonary disease, unspecified; T48.6X6A Underdosing of antiasthmatics, initial encounter; Z91.14 Patient's other noncompliance with medication regimen; R07.81 Pleurodynia; R07.89 Other chest pain; R05 Cough; R06.02 Shortness of breath; F31.9 Bipolar disorder, unspecified; I10 Essential (primary) hypertension; R56.9 Unspecified convulsions; K21.9 Gastro-esophageal reflux disease without esophagitis; Z79.899 Other long term (current) drug therapy; Z79.51 Long term (current) use of inhaled steroids; Z87.891 Personal history of nicotine dependence; Z88.8 Allergy status to other drugs, medicaments and biological substances; Z88.1 Allergy status to other antibiotic agents; Z88.6 Allergy status to analgesic agent
CPT/HCPCS: 93005; 94640; 99285; 96360; 36415; 85025; 80053; 84484; 71046; 71275; 93010; A9270 ×4; J7030; J7620; S0119

== ENCOUNTER 2019-11-16 08:38 | Emergency (ER) | payer MEDICARE, MEDICAID ==
[2019-11-16] MEDS ORDERED: NORMAL SALINE 1000 ML 1,000 ML IV ONE (10:05)
[2019-11-16] MEDS ORDERED: ONDANSETRON HCL INJ/PF 4 MG/2 ML SDV IV ONE (10:48)
[2019-11-16] MEDS ORDERED: MORPHINE SULFATE 10 MG/ML INJ IV ONE ×2 (10:48→11:33)
[2019-11-16 10:51] LABS: MEAN CORPUSCULAR VOLUME 98 fl (80-97)
[2019-11-16 11:04] LABS: HEMATOCRIT 40.3 % (37.9-51.0); HEMOGLOBIN 14.1 g/dL (13.5-17.0); MEAN CORPUSCULAR HEMOGLOBIN 34.5 pg (27.0-33.4); PLATELET COUNT 308 10^3/uL (150-450); RED BLOOD COUNT 4.09 10^6/uL (4.35-5.55); RED CELL DISTRIBUTION WIDTH 15.1 % (11.5-14.0); WHITE BLOOD COUNT 9.5 10^3/uL (4.0-10.5)
[2019-11-16 11:12] LABS: ANION GAP 12 (5-19); BLOOD UREA NITROGEN 22 mg/dL (7-20); CARBON DIOXIDE 32 mmol/L (22-30); CHLORIDE 85 mmol/L (98-107); GLUCOSE 87 mg/dL (75-110)
[2019-11-16 11:35] LABS: ABSOLUTE LYMPHOCYTES# (MANUAL) 2.7 10^3/uL (0.5-4.7); ABSOLUTE MONOCYTES # (MANUAL) 0.8 10^3/uL (0.1-1.4); BASOPHILS % (MANUAL) 0 % (0-2); EOSINOPHILS % (MANUAL) 0 % (0-6); LYMPHOCYTES % (MANUAL) 28 % (13-45); MONOCYTES % (MANUAL) 8 % (3-13); SEGMENTED NEUTROPHILS % (MAN) 64 % (42-78); TOTAL CELLS COUNTED 100
[2019-11-16 11:36] LABS: ANISOCYTOSIS SLIGHT; PLATELET CLUMPS PRESENT; PLATELET COMMENT ADEQUATE; PLATELET LARGE PRESENT
[2019-11-16 12:06] VITALS: BP 149/91
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
== END 2019-11-16 13:16 | disposition home or self-care (01) ==
LOC: ER 08:38
DX: R68.84 Jaw pain (principal); R22.0 Localized swelling, mass and lump, head; E78.00 Pure hypercholesterolemia, unspecified; I10 Essential (primary) hypertension; Z88.6 Allergy status to analgesic agent
CPT/HCPCS: 96376; 99283; 96361; 96374; 96375; 36415; 85025; 80048; C1758; J2270; J2405; J7030

== ENCOUNTER 2019-12-27 06:36 | Emergency (ER) | payer MEDICARE, MEDICAID ==
[2019-12-27] MEDS ORDERED: IPRATROPIUM/ALBUTEROL 0.5-2.5 MG/3 ML AMPUL NEB ONE (08:28)
[2019-12-27] MEDS ORDERED: LISINOPRIL 10 MG TABLET PO ONE (08:28)
[2019-12-27] MEDS ORDERED: ONDANSETRON 4 MG TAB.RAPDIS PO ONE (08:28)
--- NOTE | 2019-12-27 08:44 | RADIOLOGY REPORT (SQ) ---
EXAM DESCRIPTION: CHEST 2 VIEWS COMPLETED DATE/TIME: 12/27/2019 8:36 am REASON FOR STUDY: cough fever COMPARISON: 11/04/2019 EXAM PARAMETERS: NUMBER OF VIEWS: two views TECHNIQUE: Digital Frontal and Lateral radiographic views of the chest acquired. RADIATION DOSE: NA LIMITATIONS: none FINDINGS: LUNGS AND PLEURA: No opacities, masses or pneumothorax. No pleural effusion. MEDIASTINUM AND HILAR STRUCTURES: No masses or contour abnormalities. HEART AND VASCULAR STRUCTURES: Heart normal size. No evidence for failure. BONES: No acute findings. HARDWARE: Cervical fusion hardware. OTHER: No other significant finding. IMPRESSION: No focal airspace disease or other evidence of acute intrathoracic process. TECHNICAL DOCUMENTATION: JOB ID: [id number] [employer]- All Rights Reserved Reading location - IP/workstation name: [email or web address]
[2019-12-27] MEDS ORDERED: PREDNISONE 20 MG TABLET PO ONE (08:48)
[2019-12-27] MEDS ORDERED: IBUPROFEN 800 MG TABLET PO ONE (08:48)
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
[2019-12-27] MEDS ORDERED: ALBUTEROL SULFATE 0.083% NEB 2.5 MG/3 ML AMPUL NEB ONE (09:23)
[2019-12-27] MEDS ORDERED: PROMETHAZINE HCL 25 MG TABLET PO ONE (09:23)
[2019-12-27] MEDS ORDERED: ONDANSETRON ODT 4 MG TAB (6 TAB/ER DISP) PO PRN (10:15)
[2019-12-27] MEDS ORDERED: ALBUTEROL SULFATE HFA (90 MCG/PUFF) 8 GM MDI IH ONE (10:15)
[2019-12-27 10:27] VITALS: BP 128/86
== END 2019-12-27 10:23 | disposition home or self-care (01) ==
LOC: ER 06:36
DX: R05 Cough (principal); R06.2 Wheezing; R50.9 Fever, unspecified; R11.0 Nausea; F17.210 Nicotine dependence, cigarettes, uncomplicated; M54.9 Dorsalgia, unspecified; J44.9 Chronic obstructive pulmonary disease, unspecified; I10 Essential (primary) hypertension; E78.00 Pure hypercholesterolemia, unspecified; Z88.3 Allergy status to other anti-infective agents; Z91.14 Patient's other noncompliance with medication regimen
CPT/HCPCS: 94640 ×2; 99283; 71046; A9270 ×8; J3490; J7512; J7620; S0119

== ENCOUNTER 2020-01-03 10:59 | Inpatient (IN) | payer MEDICARE, MEDICAID ==
[2020-01-03] MEDS ORDERED: IPRATROPIUM/ALBUTEROL 0.5-2.5 MG/3 ML AMPUL NEB ONE ×2 (11:18→14:18)
[2020-01-03 11:50] LABS: A TYPE INFLUENZA AG NEGATIVE (NEGATIVE); B INFLUENZA AG NEGATIVE (NEGATIVE)
--- NOTE | 2020-01-03 12:06 | RADIOLOGY REPORT (SQ) ---
EXAM DESCRIPTION: CHEST 2 VIEWS COMPLETED DATE/TIME: 01/03/2020 11:42 am REASON FOR STUDY: shortness of breath COMPARISON: 12/27/2019 NUMBER OF VIEWS: Two view. TECHNIQUE: Frontal and lateral radiographic views of the chest acquired. LIMITATIONS: None. FINDINGS: LUNGS AND PLEURA: Low lung volumes. No opacities, masses or pneumothorax. No pleural eff usion. MEDIASTINUM AND HILAR STRUCTURES: No masses. No contour abnormalities. HEART AND VASCULAR STRUCTURES: Heart normal in size and contour. No evidence for failure. BONES: No acute findings. HARDWARE: None in the chest. OTHER: No other significant finding. IMPRESSION: LOW LUNG VOLUMES. NO SIGNIFICANT RADIOGRAPHIC FINDING IN THE CHEST. TECHNICAL DOCUMENTATION: JOB ID: [id number] 2010 [employer]- All Rights Reserved Reading location - IP/workstation name: [email or web address]
[2020-01-03] MEDS ORDERED: CEFTRIAXONE INJ 1000 MG VIAL IV ONE (12:19)
[2020-01-03] MEDS ORDERED: METHYLPREDNISOLONE INJ 125 MG/2 ML SDV IV ONE (12:20)
[2020-01-03] MEDS ORDERED: NORMAL SALINE 1000 ML 1,000 ML IV ONE (12:22)
[2020-01-03] MEDS: MAGNESIUM SULFATE/D5W 1 GM/100 ML RTUPB IV SCH ×2 (12:42→13:09)
[2020-01-03] MEDS ORDERED: MORPHINE SULFATE 10 MG/ML INJ IV ONE ×2 (12:43→15:36)
[2020-01-03] MEDS ORDERED: ONDANSETRON HCL INJ/PF 4 MG/2 ML SDV IV ONE ×2 (12:44→15:37)
[2020-01-03 13:07] LABS: ABSOLUTE BASOPHILS # (AUTO) 0.1 10^3/uL (0.0-0.2); ABSOLUTE LYMPHOCYTES (AUTO) 1.2 10^3/uL (0.5-4.7); ABSOLUTE MONOCYTES (AUTO) 0.7 10^3/uL (0.1-1.4); ABSOLUTE NEUT (AUTO) 9.5 10^3/uL (1.7-8.2); BASOPHILS % (AUTO) 0.5 % (0-2); EOSINOPHILS % (AUTO) 0.4 % (0-6); HEMATOCRIT 42.8 % (37.9-51.0); HEMOGLOBIN 14.9 g/dL (13.5-17.0); LYMPHOCYTES % (AUTO) 10.4 % (13-45); MEAN CORPUSCULAR HEMOGLOBIN 35.3 pg (27.0-33.4); MEAN CORPUSCULAR HGB CONC 34.8 g/dL (32.0-36.0); MEAN CORPUSCULAR VOLUME 102 fl (80-97); MONOCYTES % (AUTO) 6.4 % (3-13); PLATELET COUNT 221 10^3/uL (150-450); RED BLOOD COUNT 4.22 10^6/uL (4.35-5.55); RED CELL DISTRIBUTION WIDTH 14.1 % (11.5-14.0); SEGMENTED NEUTROPHILS % (AUTO) 82.3 % (42-78); TOTAL CELLS COUNTED % (AUTO) 100 %; WHITE BLOOD COUNT 11.5 10^3/uL (4.0-10.5)
[2020-01-03 13:12] LABS: PARTIAL THROMBOPLASTIN TIME 28.6 SEC (23.5-35.8)
[2020-01-03 13:23] LABS: ALBUMIN 4.2 g/dL (3.5-5.0); ALKALINE PHOSPHATASE 81 U/L (38-126); ANION GAP 10 (5-19); ASPARTATE AMINO TRANSFERASE 29 U/L (17-59); BILIRUBIN,DIRECT 0.4 mg/dL (0.0-0.4); BILIRUBIN,TOTAL 0.7 mg/dL (0.2-1.3); BLOOD UREA NITROGEN 10 mg/dL (7-20); CALCIUM 9.5 mg/dL (8.4-10.2); CARBON DIOXIDE 31 mmol/L (22-30); CHLORIDE 95 mmol/L (98-107); GLUCOSE 89 mg/dL (75-110); POTASSIUM 3.8 mmol/L (3.6-5.0); TOTAL PROTEIN 7.3 g/dL (6.3-8.2)
[2020-01-03 13:24] LABS: D-DIMER < 0.27 ug/mL (0.00-0.50)
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
[2020-01-03] MEDS ORDERED: ACETAMINOPHEN 325 MG TABLET PO PRN (16:36)
[2020-01-03] MEDS ORDERED: IPRATROPIUM/ALBUTEROL 0.5-2.5 MG/3 ML AMPUL NEB PRN (16:36)
[2020-01-03] MEDS ORDERED: ZOLPIDEM TARTRATE 5 MG TABLET PO PRN (16:36)
[2020-01-03] MEDS ORDERED: ONDANSETRON 4 MG TAB.RAPDIS PO PRN (16:36)
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
[2020-01-03 17:57] LABS: APPEARANCE,URINE CLEAR; BILIRUBIN,URINE NEGATIVE (NEGATIVE); COLOR,URINE YELLOW; GLUCOSE, URINE NEGATIVE (NEGATIVE); KETONES,URINE NEGATIVE (NEGATIVE); LEUKOCYTE ESTERASE,URINE NEGATIVE (NEGATIVE); NITRITE,URINE NEGATIVE (NEGATIVE); PROTEIN,URINE NEGATIVE (NEGATIVE); URINE SPECIFIC GRAVITY 1.005; UROBILINOGEN,URINE NEGATIVE mg/dL (<2.0)
[2020-01-03 18:00] LABS: URINE AMPHETAMINES SCREEN NEGATIVE; URINE BARBITURATES SCREEN NEGATIVE; URINE BENZODIAZEPINES SCREEN NEGATIVE; URINE COCAINE SCREEN NEGATIVE; URINE MARIJUANA (THC) SCREEN NEGATIVE; URINE METHADONE SCREEN NEGATIVE; URINE PHENCYCLIDINE SCREEN NEGATIVE
--- NOTE | 2020-01-03 18:04 | EKG REPORT ---
SEVERITY:- OTHERWISE NORMAL ECG - SINUS TACHYCARDIA : Confirmed by: Iain Aguilar MD 03-Jan-2020 18:03:36
[2020-01-03] MEDS: METHYLPREDNISOLONE INJ 40 MG/1 ML SDV IV SCH (18:29)
[2020-01-03] MEDS: IPRATROPIUM/ALBUTEROL 0.5-2.5 MG/3 ML AMPUL NEB SCH (19:33)
[2020-01-03 19:54] LABS: VENOUS BLOOD BASE EXCESS 3.7 mmol/L; VENOUS BLOOD HCO3 28.3 mmol/L (20-32); VENOUS BLOOD PCO2 42.5 mmHg (35-63); VENOUS BLOOD PH 7.44 (7.30-7.42)
[2020-01-04] MEDS: IPRATROPIUM/ALBUTEROL 0.5-2.5 MG/3 ML AMPUL NEB SCH ×4 (01:54→19:33)
[2020-01-04] MEDS: METHYLPREDNISOLONE INJ 40 MG/1 ML SDV IV SCH ×4 (05:55→21:09)
[2020-01-04 06:06] LABS: HEMATOCRIT 41.8 % (37.9-51.0); HEMOGLOBIN 14.9 g/dL (13.5-17.0); MEAN CORPUSCULAR HEMOGLOBIN 36.7 pg (27.0-33.4); MEAN CORPUSCULAR HGB CONC 35.7 g/dL (32.0-36.0); MEAN CORPUSCULAR VOLUME 103 fl (80-97); PLATELET COUNT 241 10^3/uL (150-450); RED BLOOD COUNT 4.06 10^6/uL (4.35-5.55); RED CELL DISTRIBUTION WIDTH 13.7 % (11.5-14.0); WHITE BLOOD COUNT 10.5 10^3/uL (4.0-10.5)
[2020-01-04] MEDS: ENOXAPARIN SODIUM INJ 40 MG/0.4 ML DISP.SYRIN SUBCUT SCH (09:35)
[2020-01-04] MEDS: LEVOFLOXACIN 500 MG TABLET PO SCH (10:10)
[2020-01-04] MEDS ORDERED: (PENDING PHARMACY ID) (Trazodone Hcl [Trazodone Hcl] 200 MG) PO PRN (10:46)
--- NOTE | 2020-01-04 10:46 | PDOC PROGRESS REPORT ---
Subjective Progress Note for:: 01/04/20 Subjective:: Patient admitted with bronchospasm, COPD exacerbation. Patient is still wheezing today and as such will need further hospitalization to manage his symptoms. He is also still requiring oxygen support Reason For Visit: ACUTE COPD EXACERBATION Physical Exam Vital Signs: Temp Pulse Resp BP Pulse Ox 98.3 F 81 16 164/79 H 90 L 01/04/20 08:00 01/04/20 08:00 01/04/20 08:00 01/04/20 08:00 01/04/20 08:00 Intake & Output 01/03/20 01/04/20 01/05/20 06:59 06:59 07:59 Intake Total 1760 Balance 1760 Weight 112.2 kg General appearance: PRESENT: no acute distress, obese, well-developed, well- nourished Head exam: PRESENT: atraumatic, normocephalic Eye exam: PRESENT: conjunctiva pink, EOMI, PERRLA. ABSENT: scleral icterus Ear exam: PRESENT: normal external ear exam Mouth exam: PRESENT: moist, tongue midline Neck exam: ABSENT: carotid bruit, JVD, lymphadenopathy, thyromegaly Respiratory exam: PRESENT: unlabored, wheezes - Bilateral, inspiratory. ABSENT: rales, tachypnea Cardiovascular exam: PRESENT: RRR, +S1, +S2. ABSENT: diastolic murmur, rubs, systolic murmur Pulses: PRESENT: normal dorsalis pedis pul Vascular exam: PRESENT: normal capillary refill GI/Abdominal exam: PRESENT: normal bowel sounds, soft. ABSENT: distended, guarding, mass, organolmegaly, rebound, tenderness Rectal exam: PRESENT: deferred Extremities exam: PRESENT: full ROM, tenderness. ABSENT: calf tenderness, clubbing, pedal edema Neurological exam: PRESENT: alert, awake, oriented to person, oriented to place, oriented to time, oriented to situation, CN II-XII grossly intact. ABSENT: motor sensory deficit Psychiatric exam: PRESENT: appropriate affect, normal mood. ABSENT: homicidal ideation, suicidal ideation Skin exam: PRESENT: dry, intact, warm. ABSENT: cyanosis, rash Results Laboratory Results: 01/04/20 05:16 01/03/20 12:40 01/03/20 01/03/20 01/03/20 12:40 12:40 13:08 WBC 11.5 H RBC 4.22 L Hgb 14.9 Hct 42.8 MCV 102 H MCH 35.3 H MCHC 34.8 RDW 14.1 H Plt Count 221 Seg Neutrophils % 82.3 H VBG pH 7.44 H VBG pCO2 42.5 VBG HCO3 28.3 VBG Base Excess 3.7 Sodium 135.9 L Potassium 3.8 Chloride 95 L Carbon Dioxide 31 H Anion Gap 10 BUN 10 Creatinine 0.76 Est GFR ( Amer) > 60 Glucose 89 Calcium 9.5 Total Bilirubin 0.7 AST 29 Alkaline Phosphatase 81 Total Protein 7.3 Albumin 4.2 Urine Color Urine Appearance Urine pH Ur Specific [place] Urine Protein Urine Glucose (UA) Urine Ketones Urine Blood Urine Nitrite Ur Leukocyte Esterase Urine RBC (Auto) 01/03/20 01/04/20 17:15 05:16 WBC 10.5 RBC 4.06 L Hgb 14.9 Hct 41.8 MCV 103 H MCH 36.7 H MCHC 35.7 RDW 13.7 Plt Count 241 Seg Neutrophils % VBG pH VBG pCO2 VBG HCO3 VBG Base Excess Sodium Potassium Chloride Carbon Dioxide Anion Gap BUN Creatinine Est GFR ( Amer) Glucose Calcium Total Bilirubin AST Alkaline Phosphatase Total Protein Albumin Urine Color YELLOW Urine Appearance CLEAR Urine pH 7.0 Ur Specific [place] 1.005 Urine Protein NEGATIVE Urine Glucose (UA) NEGATIVE Urine Ketones NEGATIVE Urine Blood NEGATIVE Urine Nitrite NEGATIVE Ur Leukocyte Esterase NEGATIVE Urine RBC (Auto) 0 01/03/20 12:40 NT-Pro-B Natriuret Pep 35 Impressions: Chest X-Ray 01/03/20 11:15 IMPRESSION: LOW LUNG VOLUMES. NO SIGNIFICANT RADIOGRAPHIC FINDING IN THE CHEST. Assessment and Plan - Diagnosis (1) Acute hypoxemic respiratory failure Is this a current diagnosis for this admission?: Yes Plan: Plan is to wean off oxygen as tolerated. Ambulate patient and check oxygen. If needed home oxygen will be arranged (2) COPD with exacerbation Is this a current diagnosis for this admission?: Yes Plan: Taper steroids as per response (3) Hypertension Qualifiers: Hypertension type: essential hypertension Is this a current diagnosis for this admission?: Yes Plan: Adjust medications as needed (4) Obesity (BMI 30.0-34.9) Is this a current diagnosis for this admission?: Yes - Plan Summary Summary: As patient is still bronchospastic with wheezing and hypoxemia he requires further hospital management - Inpatient Certification Based on my medical assessment, after consideration of the patient's comorbidities, presenting symptoms, or acuity I expect that the services needed warrant INPATIENT care.: Yes Medical Necessity: Need Close Monitoring Due to Risk of Patient Decompensation, Need for Nebulizer Therapy and Monitoring of Response
[2020-01-04] MEDS ORDERED: AMPHETAMINE PO SCH (11:00)
[2020-01-04] MEDS ORDERED: (PENDING PHARMACY ID) (Lisinopril [Prinivil] 20 MG) PO SCH (11:00)
[2020-01-04] MEDS ORDERED: (PENDING PHARMACY ID) (Paroxetine Hcl [Paxil] 60 MG) PO SCH (11:00)
[2020-01-04] MEDS ORDERED: DEXTROAMPHETAMINE PO SCH (11:00)
[2020-01-04] MEDS ORDERED: TRAZODONE HCL 50 MG TABLET PO PRN ×2 (11:01→11:30)
[2020-01-04] MEDS: PAROXETINE HCL 20 MG TABLET PO SCH (12:23)
[2020-01-04] MEDS: LISINOPRIL 10 MG TABLET PO SCH (12:23)
[2020-01-04] MEDS: FLUTICASONE/VILANTEROL 200-25 MCG/DOSE IH SCH (12:25)
[2020-01-04] MEDS: OXYCODONE-ACETAMINOPHEN 5-325 MG TABLET PO PRN ×2 (12:32→18:40)
[2020-01-05] MEDS: OXYCODONE-ACETAMINOPHEN 5-325 MG TABLET PO PRN ×2 (01:22→07:42)
[2020-01-05] MEDS ORDERED: GUAIFENESIN/D-METHORPHAN (200-20 MG) SYRUP 10 ML PO PRN (01:40)
[2020-01-05] MEDS: IPRATROPIUM/ALBUTEROL 0.5-2.5 MG/3 ML AMPUL NEB SCH ×2 (03:00→07:39)
[2020-01-05] MEDS: FLUTICASONE/VILANTEROL 200-25 MCG/DOSE IH SCH (09:37)
[2020-01-05] MEDS: PAROXETINE HCL 20 MG TABLET PO SCH (09:38)
[2020-01-05] MEDS: ENOXAPARIN SODIUM INJ 40 MG/0.4 ML DISP.SYRIN SUBCUT SCH (09:38)
[2020-01-05] MEDS: LISINOPRIL 10 MG TABLET PO SCH (09:39)
[2020-01-05] MEDS: LEVOFLOXACIN 500 MG TABLET PO SCH (09:40)
[2020-01-05] MEDS ORDERED: PREDNISONE 20 MG TABLET PO SCH (10:00)
--- NOTE | 2020-01-05 10:24 | PDOC DISCHARGE SUMMARY ---
Impression - Admit/DC Date/PCP Admission Date/Primary Care Provider: 01/03/20 15:55 ROSA MIN DO Discharge Date: 01/05/20 - Discharge Diagnosis (1) Acute hypoxemic respiratory failure Is this a current diagnosis for this admission?: Yes (2) COPD with exacerbation Is this a current diagnosis for this admission?: Yes (3) Hypertension Is this a current diagnosis for this admission?: Yes (4) Obesity (BMI 30.0-34.9) Is this a current diagnosis for this admission?: Yes - Assessment Summary: As patient is still bronchospastic with wheezing and hypoxemia he requires further hospital management - Additional Information Resuscitation Status: Full Code Discharge Diet: Cardiac Discharge Activity: Activity As Tolerated Referrals: ROSA MIN DO [Primary Care Provider] - Follow up as needed (F/u in 1 week) Prescriptions: Prednisone [Deltasone 20 mg Tablet] 40 mg PO DAILY #5 tablet Levofloxacin [Levaquin 500 mg Tablet] 500 mg PO DAILY #3 tablet Home Medications: Cariprazine HCl [Vraylar] 3 mg PO QPM 10/04/19 Lansoprazole 30 mg PO ACBRKFST 10/04/19 Paroxetine HCl [Paxil] 60 mg PO QAM 10/04/19 Trazodone HCl 200 mg PO HSP PRN 10/04/19 Lisinopril [Prinivil] 20 mg PO QAM 12/27/19 Acetaminophen [Tylenol 325 mg Tablet] 650 mg PO Q4HP PRN 01/03/20 Dextroamphetamine/Amphetamine [Adderall Xr 5 mg Capsule] 25 mg PO QAM 01/03/20 Fluticasone/Vilanterol [Breo 200-25 Mcg Ellipta 14 Dose/Dpi] 1 puff IH QAM 01/03/20 Levofloxacin [Levaquin 500 mg Tablet] 500 mg PO DAILY #3 tablet 01/05/20 Prednisone [Deltasone 20 mg Tablet] 40 mg PO DAILY #5 tablet 01/05/20 History of Present Illiness History of Present Illness: JUDE HI is a 39 year old male Patient presents with the above symptoms. He was found to be wheezing in the emergency room. He was treated with bronchodilators and received steroids and magnesium however his symptoms are persistent. Patient gives a history of recently diagnosed COPD. He continues to smoke about 1-1/2 packs of cigarettes daily until about 3 weeks ago. He denies any fever chest pain dizziness or any other pertinent symptoms. Hospital Course Hospital Course: Patient was admitted with acute respiratory failure. He was thought to have COPD with acute exacerbation. Patient was hypoxemic. He was started on bronchodilators, steroids as well as oxygen support. He actually improved rapidly over the last 48 hours. He is oxygen fortunately recovered and at this point it is felt that patient can be discharged home to complete his treatment. He has been hemodynamically stable while in hospital Physical Exam Vital Signs: Temp Pulse Resp BP Pulse Ox 97.6 F 84 16 144/87 H 95 01/05/20 07:28 01/05/20 07:39 01/05/20 07:39 01/05/20 07:28 01/05/20 07:39 Intake & Output 01/04/20 01/05/20 01/06/20 05:59 06:59 06:59 Intake Total Balance Weight General appearance: PRESENT: no acute distress, obese, well-developed, well- nourished Head exam: PRESENT: atraumatic, normocephalic Eye exam: PRESENT: conjunctiva pink, EOMI, PERRLA. ABSENT: scleral icterus Ear exam: PRESENT: normal external ear exam Mouth exam: PRESENT: moist, tongue midline Neck exam: ABSENT: carotid bruit, JVD, lymphadenopathy, thyromegaly Respiratory exam: PRESENT: clear to auscultation omer. ABSENT: rales, rhonchi, wheezes Cardiovascular exam: PRESENT: RRR. ABSENT: diastolic murmur, rubs, systolic murmur Pulses: PRESENT: normal dorsalis pedis pul Vascular exam: PRESENT: normal capillary refill GI/Abdominal exam: PRESENT: normal bowel sounds, soft. ABSENT: distended, guarding, mass, organolmegaly, rebound, tenderness Rectal exam: PRESENT: deferred Extremities exam: PRESENT: full ROM. ABSENT: calf tenderness, clubbing, pedal edema Neurological exam: PRESENT: alert, awake, oriented to person, oriented to place, oriented to time, oriented to situation, CN II-XII grossly intact. ABSENT: motor sensory deficit Psychiatric exam: PRESENT: appropriate affect, normal mood. ABSENT: homicidal ideation, suicidal ideation Skin exam: PRESENT: dry, intact, warm. ABSENT: cyanosis, rash Results Laboratory Results: WBC 10.5 10^3/uL (4.0-10.5) 01/04/20 05:16 RBC 4.06 10^6/uL (4.35-5.55) L 01/04/20 05:16 Hgb 14.9 g/dL (13.5-17.0) 01/04/20 05:16 Hct 41.8 % (37.9-51.0) 01/04/20 05:16 MCV 103 fl (80-97) H 01/04/20 05:16 MCH 36.7 pg (27.0-33.4) H 01/04/20 05:16 MCHC 35.7 g/dL (32.0-36.0) 01/04/20 05:16 RDW 13.7 % (11.5-14.0) 01/04/20 05:16 Plt Count 241 10^3/uL (150-450) 01/04/20 05:16 Lymph % (Auto) 10.4 % (13-45) L 01/03/20 12:40 [place] % (Auto) 6.4 % (3-13) 01/03/20 12:40 Eos % (Auto) 0.4 % (0-6) 01/03/20 12:40 Baso % (Auto) 0.5 % (0-2) 01/03/20 12:40 Absolute Neuts (auto) 9.5 10^3/uL (1.7-8.2) H 01/03/20 12:40 Absolute Lymphs (auto) 1.2 10^3/uL (0.5-4.7) 01/03/20 12:40 Absolute Monos (auto) 0.7 10^3/uL (0.1-1.4) 01/03/20 12:40 Absolute Eos (auto) 0.0 10^3/uL (0.0-0.6) 01/03/20 12:40 Absolute Basos (auto) 0.1 10^3/uL (0.0-0.2) 01/03/20 12:40 Seg Neutrophils % 82.3 % (42-78) H 01/03/20 12:40 APTT 28.6 SEC (23.5-35.8) 01/03/20 12:40 D-Dimer < 0.27 ug/mL (0.00-0.50) 01/03/20 12:40 VBG pH 7.44 (7.30-7.42) H 01/03/20 13:08 VBG pCO2 42.5 mmHg (35-63) 01/03/20 13:08 VBG HCO3 28.3 mmol/L (20-32) 01/03/20 13:08 VBG Base Excess 3.7 mmol/L 01/03/20 13:08 Sodium 135.9 mmol/L (137-145) L 01/03/20 12:40 Potassium 3.8 mmol/L (3.6-5.0) 01/03/20 12:40 Chloride 95 mmol/L (98-107) L 01/03/20 12:40 Carbon Dioxide 31 mmol/L (22-30) H 01/03/20 12:40 Anion Gap 10 (5-19) 01/03/20 12:40 BUN 10 mg/dL (7-20) 01/03/20 12:40 Creatinine 0.76 mg/dL (0.52-1.25) 01/03/20 12:40 Est GFR ( Amer) > 60 (>60) 01/03/20 12:40 Est GFR (MDRD) Non-Af > 60 (>60) 01/03/20 12:40 Glucose 89 mg/dL (75-110) 01/03/20 12:40 Calcium 9.5 mg/dL (8.4-10.2) 01/03/20 12:40 Total Bilirubin 0.7 mg/dL (0.2-1.3) 01/03/20 12:40 Direct Bilirubin 0.4 mg/dL (0.0-0.4) 01/03/20 12:40 Neonat Total Bilirubin Not Reportable 01/03/20 12:40 Neonat Direct Bilirubin Not Reportable 01/03/20 12:40 Neonat Indirect Bili Not Reportable 01/03/20 12:40 AST 29 U/L (17-59) 01/03/20 12:40 ALT 40 U/L (<50) 01/03/20 12:40 Alkaline Phosphatase 81 U/L (38-126) 01/03/20 12:40 NT-Pro-B Natriuret Pep 35 pg/mL (<125) 01/03/20 12:40 Total Protein 7.3 g/dL (6.3-8.2) 01/03/20 12:40 Albumin 4.2 g/dL (3.5-5.0) 01/03/20 12:40 Urine Color YELLOW 01/03/20 17:15 Urine Appearance CLEAR 01/03/20 17:15 Urine pH 7.0 (5.0-9.0) 01/03/20 17:15 Ur Specific [place] 1.005 01/03/20 17:15 Urine Protein NEGATIVE mg/dL (NEGATIVE) 01/03/20 17:15 Urine Glucose (UA) NEGATIVE mg/dL (NEGATIVE) 01/03/20 17:15 Urine Ketones NEGATIVE mg/dL (NEGATIVE) 01/03/20 17:15 Urine Blood NEGATIVE (NEGATIVE) 01/03/20 17:15 Urine Nitrite NEGATIVE (NEGATIVE) 01/03/20 17:15 Urine Bilirubin NEGATIVE (NEGATIVE) 01/03/20 17:15 Urine Urobilinogen NEGATIVE mg/dL (<2.0) 01/03/20 17:15 Ur Leukocyte Esterase NEGATIVE (NEGATIVE) 01/03/20 17:15 Urine RBC (Auto) 0 /HPF 01/03/20 17:15 Urine Mucus (Auto) RARE /LPF 01/03/20 17:15 Urine Ascorbic Acid NEGATIVE (NEGATIVE) 01/03/20 17:15 Urine Opiates Screen UNCONFIRMED POSITIVE 01/03/20 17:15 Urine Methadone Screen NEGATIVE 01/03/20 17:15 Ur Barbiturates Screen NEGATIVE 01/03/20 17:15 Ur Phencyclidine Scrn NEGATIVE 01/03/20 17:15 Ur Amphetamines Screen NEGATIVE 01/03/20 17:15 U Benzodiazepines Scrn NEGATIVE 01/03/20 17:15 Urine Cocaine Screen NEGATIVE 01/03/20 17:15 U Marijuana (THC) Screen NEGATIVE 01/03/20 17:15 Influenza A (Rapid) NEGATIVE (NEGATIVE) 01/03/20 11:08 Influenza B (Rapid) NEGATIVE (NEGATIVE) 01/03/20 11:08 01/03/20 12:40 NT-Pro-B Natriuret Pep 35 Impressions: Chest X-Ray 01/03/20 11:15 IMPRESSION: LOW LUNG VOLUMES. NO SIGNIFICANT RADIOGRAPHIC FINDING IN THE CHEST. Plan Health Concerns: . Patient advised on the need to lose weight Time Spent: Less than 30 Minutes Stroke Is this a Stroke Patient?: No Acute Heart Failure - Is this a Heart Failure Patient?: No
[2020-01-05 10:41] VITALS: BP 152/75
== END 2020-01-05 10:57 | disposition home or self-care (01) | DRG 189 ==
LOC: ER 10:59 → EH 15:55 → 5 17:54
PROVIDERS: ADMIT Internal Medicine; ATTEND Internal Medicine
DX: J96.01 Acute respiratory failure with hypoxia (principal); J44.1 Chronic obstructive pulmonary disease with (acute) exacerbation; I10 Essential (primary) hypertension; E78.5 Hyperlipidemia, unspecified; K21.9 Gastro-esophageal reflux disease without esophagitis; M10.9 Gout, unspecified; F90.9 Attention-deficit hyperactivity disorder, unspecified type; F31.9 Bipolar disorder, unspecified; E78.00 Pure hypercholesterolemia, unspecified; F41.9 Anxiety disorder, unspecified; E66.01 Morbid (severe) obesity due to excess calories; Z79.899 Other long term (current) drug therapy; Z87.891 Personal history of nicotine dependence; Z88.6 Allergy status to analgesic agent; Z88.3 Allergy status to other anti-infective agents; Z88.8 Allergy status to other drugs, medicaments and biological substances; Z91.048 Other nonmedicinal substance allergy status
CPT/HCPCS: 36415; 71046; 80053; 80307; 81001; 82803; 83880; 85025; 85027; 85379; 85730; 87040; 87070; 87205; 87804; 93005; 93010; 94640; 96361; 96365; 96367; 96375; 99285; J0696; J1650; J2270; J2405; J2920; J2930; J3475; J3490; J7030; J7512; J7620; S0119

== ENCOUNTER 2020-02-13 10:27 | Emergency (ER) | payer MEDICARE, MEDICAID ==
[2020-02-13] MEDS ORDERED: HYDROCODONE/ACETAMINOPHEN 5-325 MG TABLET PO ONE (11:07)
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
[2020-02-13 11:27] LABS: APPEARANCE,URINE CLEAR; BILIRUBIN,URINE NEGATIVE (NEGATIVE); COLOR,URINE STRAW; GLUCOSE, URINE NEGATIVE (NEGATIVE); KETONES,URINE NEGATIVE (NEGATIVE); LEUKOCYTE ESTERASE,URINE NEGATIVE (NEGATIVE); NITRITE,URINE NEGATIVE (NEGATIVE); PROTEIN,URINE NEGATIVE (NEGATIVE); URINE SPECIFIC GRAVITY 1.002; UROBILINOGEN,URINE NEGATIVE mg/dL (<2.0)
[2020-02-13 11:38] LABS: ABSOLUTE BASOPHILS # (AUTO) 0.1 10^3/uL (0.0-0.2); ABSOLUTE EOSINOPHILS # (AUTO) 0.1 10^3/uL (0.0-0.6); ABSOLUTE LYMPHOCYTES (AUTO) 1.8 10^3/uL (0.5-4.7); ABSOLUTE MONOCYTES (AUTO) 0.4 10^3/uL (0.1-1.4); ABSOLUTE NEUT (AUTO) 5.9 10^3/uL (1.7-8.2); EOSINOPHILS % (AUTO) 1.1 % (0-6); HEMATOCRIT 42.9 % (37.9-51.0); HEMOGLOBIN 15.4 g/dL (13.5-17.0); LYMPHOCYTES % (AUTO) 21.4 % (13-45); MEAN CORPUSCULAR HEMOGLOBIN 35.6 pg (27.0-33.4); MEAN CORPUSCULAR HGB CONC 35.9 g/dL (32.0-36.0); MEAN CORPUSCULAR VOLUME 99 fl (80-97); MONOCYTES % (AUTO) 5.2 % (3-13); PLATELET COUNT 231 10^3/uL (150-450); RED BLOOD COUNT 4.32 10^6/uL (4.35-5.55); RED CELL DISTRIBUTION WIDTH 13.7 % (11.5-14.0); SEGMENTED NEUTROPHILS % (AUTO) 71.3 % (42-78); TOTAL CELLS COUNTED % (AUTO) 100 %; WHITE BLOOD COUNT 8.3 10^3/uL (4.0-10.5)
--- NOTE | 2020-02-13 11:51 | RADIOLOGY REPORT (SQ) ---
EXAM DESCRIPTION: CHEST SINGLE VIEW IMAGES COMPLETED DATE/TIME: 02/13/2020 11:37 am REASON FOR STUDY: htn COMPARISON: 01/03/2020 EXAM PARAMETERS: NUMBER OF VIEWS: One view. TECHNIQUE: Single frontal radiographic view of the chest acquired. RADIATION DOSE: NA LIMITATIONS: None. FINDINGS: LUNGS AND PLEURA: No opacities, masses or pneumothorax. No pleural effusion. MEDIASTINUM AND HILAR STRUCTURES: No masses. Contour normal. HEART AND VASCULAR STRUCTURES: Heart normal in size. Normal vasculature. BONES: No acute findings. HARDWARE: None in the chest. OTHER: Hardware anterior fusion lower cervical spine. IMPRESSION: 1. No significant interval changes since the prior study dated 01/03/2020. No acute find ings. TECHNICAL DOCUMENTATION: JOB ID: [id number] 2010 [employer]- All Rights Reserved Reading location - IP/workstation name: [email or web address]
[2020-02-13 11:59] LABS: ALBUMIN 4.2 g/dL (3.5-5.0); ALKALINE PHOSPHATASE 76 U/L (38-126); ANION GAP 9 (5-19); ASPARTATE AMINO TRANSFERASE 71 U/L (17-59); BILIRUBIN,TOTAL 0.5 mg/dL (0.2-1.3); BLOOD UREA NITROGEN 6 mg/dL (7-20); CALCIUM 9.8 mg/dL (8.4-10.2); CARBON DIOXIDE 26 mmol/L (22-30); CHLORIDE 102 mmol/L (98-107); GLUCOSE 131 mg/dL (75-110); POTASSIUM 3.7 mmol/L (3.6-5.0); TOTAL PROTEIN 7.1 g/dL (6.3-8.2)
[2020-02-13] MEDS ORDERED: ONDANSETRON 4 MG TAB.RAPDIS PO ONE (12:05)
[2020-02-13] MEDS ORDERED: PREDNISONE 20 MG TABLET PO ONE (13:11)
[2020-02-13] MEDS ORDERED: MORPHINE SULFATE 10 MG/ML INJ IV ONE (13:25)
[2020-02-13] MEDS ORDERED: ONDANSETRON HCL INJ/PF 4 MG/2 ML SDV IV ONE (13:25)
[2020-02-13 15:05] VITALS: BP 150/97
[2020-02-13 15:37] LABS: A TYPE INFLUENZA AG NEGATIVE (NEGATIVE); B INFLUENZA AG NEGATIVE (NEGATIVE)
== END 2020-02-13 15:05 | disposition home or self-care (01) ==
LOC: ER 10:27
DX: J20.9 Acute bronchitis, unspecified (principal); J44.0 Chronic obstructive pulmonary disease with (acute) lower respiratory infection; K21.9 Gastro-esophageal reflux disease without esophagitis; R10.9 Unspecified abdominal pain; J44.9 Chronic obstructive pulmonary disease, unspecified; R11.2 Nausea with vomiting, unspecified; R05 Cough; R06.02 Shortness of breath; I10 Essential (primary) hypertension; F17.210 Nicotine dependence, cigarettes, uncomplicated; M10.9 Gout, unspecified; F31.9 Bipolar disorder, unspecified; F41.9 Anxiety disorder, unspecified; Z79.51 Long term (current) use of inhaled steroids; Z87.01 Personal history of pneumonia (recurrent); Z88.8 Allergy status to other drugs, medicaments and biological substances; Z88.1 Allergy status to other antibiotic agents; Z88.6 Allergy status to analgesic agent; Z79.899 Other long term (current) drug therapy; Z20.828 Contact with and (suspected) exposure to other viral communicable diseases
CPT/HCPCS: 99283; 96374; 96375; 36415; 87070; 87880; 83605; 83690; 85025; 87635; 80053; 81001; 87804; 71045; A9270 ×3; J2270; J2405; J7512; S0119

== ENCOUNTER 2020-02-14 19:56 | Emergency (ER) | payer MEDICARE, MEDICAID ==
[2020-02-14] MEDS ORDERED: HYDROCODONE/ACETAMINOPHEN 5-325 MG TABLET PO ONE (20:58)
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
[2020-02-14 21:56] LABS: ABSOLUTE BASOPHILS # (AUTO) 0.1 10^3/uL (0.0-0.2); ABSOLUTE EOSINOPHILS # (AUTO) 0.1 10^3/uL (0.0-0.6); ABSOLUTE LYMPHOCYTES (AUTO) 2.4 10^3/uL (0.5-4.7); ABSOLUTE MONOCYTES (AUTO) 0.7 10^3/uL (0.1-1.4); ABSOLUTE NEUT (AUTO) 5.1 10^3/uL (1.7-8.2); BASOPHILS % (AUTO) 1.5 % (0-2); EOSINOPHILS % (AUTO) 1.3 % (0-6); HEMATOCRIT 42.6 % (37.9-51.0); HEMOGLOBIN 15.1 g/dL (13.5-17.0); LYMPHOCYTES % (AUTO) 28.1 % (13-45); MEAN CORPUSCULAR HEMOGLOBIN 35.5 pg (27.0-33.4); MEAN CORPUSCULAR HGB CONC 35.3 g/dL (32.0-36.0); MEAN CORPUSCULAR VOLUME 100 fl (80-97); MONOCYTES % (AUTO) 8.3 % (3-13); PLATELET COUNT 232 10^3/uL (150-450); RED BLOOD COUNT 4.24 10^6/uL (4.35-5.55); SEGMENTED NEUTROPHILS % (AUTO) 60.8 % (42-78); TOTAL CELLS COUNTED % (AUTO) 100 %; WHITE BLOOD COUNT 8.4 10^3/uL (4.0-10.5)
[2020-02-14 21:59] LABS: APPEARANCE,URINE CLEAR; BILIRUBIN,URINE NEGATIVE (NEGATIVE); COLOR,URINE YELLOW; GLUCOSE, URINE NEGATIVE (NEGATIVE); KETONES,URINE NEGATIVE (NEGATIVE); LEUKOCYTE ESTERASE,URINE NEGATIVE (NEGATIVE); NITRITE,URINE NEGATIVE (NEGATIVE); PROTEIN,URINE NEGATIVE (NEGATIVE); UROBILINOGEN,URINE NEGATIVE mg/dL (<2.0)
[2020-02-14 22:07] LABS: ALBUMIN 4.2 g/dL (3.5-5.0); ALKALINE PHOSPHATASE 71 U/L (38-126); ANION GAP 7 (5-19); ASPARTATE AMINO TRANSFERASE 76 U/L (17-59); BILIRUBIN,TOTAL 0.4 mg/dL (0.2-1.3); BLOOD UREA NITROGEN 10 mg/dL (7-20); CALCIUM 9.4 mg/dL (8.4-10.2); CARBON DIOXIDE 29 mmol/L (22-30); CHLORIDE 101 mmol/L (98-107); GLUCOSE 99 mg/dL (75-110); TOTAL PROTEIN 7.2 g/dL (6.3-8.2)
--- NOTE | 2020-02-14 22:26 | RADIOLOGY REPORT (SQ) ---
EXAM DESCRIPTION: X-RAY CHEST- One View CLINICAL HISTORY: Worsening cough and pain on the left side. COMPARISON: February 13, 2020 TECHNIQUE: Single view of the chest. FINDINGS: There are no discrete air space infiltrates, pneumothoraces or pleural effusions. The pulmonary vascularity is normal. The cardiomediastinal silhouette is normal in size. Osseous structures are stable in appearance. Fusion hardware of the lower cervical spine is again noted. IMPRESSION: There are no acute lung parenchymal findings.
[2020-02-14] MEDS ORDERED: FAMOTIDINE 20 MG TABLET PO ONE (23:06)
[2020-02-14] MEDS ORDERED: MORPHINE SULFATE 10 MG/ML INJ IV ONE (23:06)
[2020-02-14] MEDS ORDERED: PROMETHAZINE HCL 25 MG TABLET PO ONE (23:06)
[2020-02-14] MEDS ORDERED: SUCRALFATE 1 GM TABLET PO ONE (23:06)
[2020-02-15 00:04] VITALS: BP 143/90
== END 2020-02-15 00:04 | disposition home or self-care (01) ==
LOC: ER 19:56
DX: R10.12 Left upper quadrant pain (principal); R05 Cough; R10.9 Unspecified abdominal pain; R10.10 Upper abdominal pain, unspecified; F41.9 Anxiety disorder, unspecified; Z79.899 Other long term (current) drug therapy; Z88.8 Allergy status to other drugs, medicaments and biological substances; F17.200 Nicotine dependence, unspecified, uncomplicated; J44.9 Chronic obstructive pulmonary disease, unspecified; I10 Essential (primary) hypertension
CPT/HCPCS: 99284; 96374; 36415; 83690; 85025; 80053; 81001; 71045; A9270 ×4; J2270

== ENCOUNTER 2020-03-01 08:24 | Emergency (ER) | payer MEDICARE, MEDICAID ==
[2020-03-01] MEDS ORDERED: HYDROCODONE/ACETAMINOPHEN 5-325 MG TABLET PO ONE (08:53)
[2020-03-01] MEDS ORDERED: LIDOCAINE 5% (700 MG) TRANSDERMAL ADH..PATCH TP ONE (08:53)
--- NOTE | 2020-03-01 09:21 | RADIOLOGY REPORT (SQ) ---
EXAM DESCRIPTION: RIBS LEFT W/PA CHEST IMAGES COMPLETED DATE/TIME: 03/01/2020 9:07 am REASON FOR STUDY: rib pain, felt pop COMPARISON: 02/14/2020 chest radiographs. TECHNIQUE: Frontal view of the chest and additional views of the left ribs acquired. NUMBER OF VIEWS: Five view. LIMITATIONS: None. FINDINGS: FRONTAL CXR: No pneumothorax. No pleural effusion. No atelectasis or infiltrates. RIBS: No displaced rib fractures. No lytic or blastic bony lesions. OTHER: No other significant finding. IMPRESSION: NO PNEUMOTHORAX. NO DISPLACED RIB FRACTURES. COMMENT: SITE OF TRAUMA/COMPLAINT MARKED/STAMP COMPLETED: NO. TECHNICAL DOCUMENTATION: JOB ID: [id number] 2010 [employer]- All Rights Reserved Reading location - IP/workstation name: [email or web address]
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
[2020-03-01 10:13] VITALS: BP 141/96
== END 2020-03-01 10:22 | disposition home or self-care (01) ==
LOC: ER 08:24
DX: R07.81 Pleurodynia (principal); J44.9 Chronic obstructive pulmonary disease, unspecified; R05 Cough; F17.200 Nicotine dependence, unspecified, uncomplicated; I10 Essential (primary) hypertension
CPT/HCPCS: 99283; 71101; A9270 ×2

== ENCOUNTER 2020-03-09 08:16 | Emergency (ER) | payer MEDICARE, MEDICAID ==
[2020-03-09 08:21] VITALS: BP 156/88
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
== END 2020-03-09 09:44 | disposition left against medical advice (07) ==
LOC: ER 08:16
DX: Z53.21 Procedure and treatment not carried out due to patient leaving prior to being seen by health care provider (principal)

== ENCOUNTER 2020-03-13 17:26 | Emergency (ER) | payer MEDICARE, MEDICAID ==
[2020-03-13] MEDS ORDERED: ACETAMINOPHEN 325 MG TABLET PO ONE (20:23)
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
--- NOTE | 2020-03-13 21:12 | RADIOLOGY REPORT (SQ) ---
XR CHEST 2 VIEWS EXAM DATE: 03/13/2020 8:22 PM CDT HISTORY: Pain on left side after coughing real hard. COMPARISON: 03/01/2020 FINDINGS: The heart size is within normal limits. There is no pulmonary vascular congestion. No consolidation, pleural effusion, or pneumothorax is seen. IMPRESSION: No evidence of acute cardiopulmonary disease.
[2020-03-13] MEDS ORDERED: IPRATROPIUM/ALBUTEROL 0.5-2.5 MG/3 ML AMPUL NEB ONE (21:15)
[2020-03-13] MEDS ORDERED: DEXAMETHASONE SOD PHOS INJ 10 MG/1 ML VIAL IM ONE (21:15)
[2020-03-13 22:04] VITALS: BP 149/95
== END 2020-03-13 22:02 | disposition home or self-care (01) ==
LOC: ER 17:26
DX: R07.81 Pleurodynia (principal); J44.9 Chronic obstructive pulmonary disease, unspecified; F17.210 Nicotine dependence, cigarettes, uncomplicated; E78.00 Pure hypercholesterolemia, unspecified; I10 Essential (primary) hypertension; Z88.3 Allergy status to other anti-infective agents
CPT/HCPCS: 99406; 94640; 99283; 96372; 71046; A9270 ×2; J1100; J7620

== ENCOUNTER 2020-04-20 08:56 | Emergency (ER) | payer MEDICARE, MEDICAID ==
--- NOTE | 2020-04-20 09:47 | RADIOLOGY REPORT (SQ) ---
EXAM DESCRIPTION: WRIST RIGHT 3 VIEWS IMAGES COMPLETED DATE/TIME: 04/20/2020 9:23 am REASON FOR STUDY: unable to pronate and supinate secondary to fall COMPARISON: PA, oblique, lateral views of the right wrist from 09/15/2019. NUMBER OF VIEWS: Three views. TECHNIQUE: AP, lateral, and oblique radiographic images acquired of the right wrist. LIMITATIONS: None. FINDINGS: MINERALIZATION: Normal. BONES: No acute fracture or dislocation. The normal carpal alignment is preserved. SOFT TISSUES: No soft tissue swelling or radiopaque foreign body OTHER: Unchanged prominence of the scapholunate interval. IMPRESSION: No acute osseous abnormality of the right wrist. TECHNICAL DOCUMENTATION: JOB ID: [id number] [employer]- All Rights Reserved Reading location - IP/workstation name: [email or web address]
[2020-04-20] MEDS ORDERED: IBUPROFEN 800 MG TABLET PO ONE (09:56)
[2020-04-20] MEDS ORDERED: HYDROCODONE/ACETAMINOPHEN 5-325 MG TABLET PO ONE (09:56)
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
--- NOTE | 2020-04-20 10:24 | RADIOLOGY REPORT (SQ) ---
EXAM DESCRIPTION: HAND RIGHT 3 VIEWS IMAGES COMPLETED DATE/TIME: 04/20/2020 10:10 am REASON FOR STUDY: right hand pain, fall COMPARISON: PA, lateral, and oblique views of the right hand from 12/10/2016. EXAM PARAMETERS: NUMBER OF VIEWS: Three views. TECHNIQUE: AP, lateral and oblique radiographic images acquired of the right hand. LIMITATIONS: None. FINDINGS: MINERALIZATION: Normal. BONES: No acute fracture or dislocation. JOINTS: The normal carpal alignment is preserved. SOFT TISSUES: No soft tissue swelling or radiopaque foreign body. OTHER: No other finding. IMPRESSION: No acute osseous abnormality of the right hand. TECHNICAL DOCUMENTATION: JOB ID: [id number] 2010 [employer]- All Rights Reserved Reading location - IP/workstation name: [email or web address]
[2020-04-20 10:58] VITALS: BP 145/87
== END 2020-04-20 11:01 | disposition home or self-care (01) ==
LOC: ER 08:56
DX: M25.531 Pain in right wrist (principal); M79.641 Pain in right hand; M79.89 Other specified soft tissue disorders; M25.431 Effusion, right wrist; W18.40XA Slipping, tripping and stumbling without falling, unspecified, initial encounter; I10 Essential (primary) hypertension; J44.9 Chronic obstructive pulmonary disease, unspecified; Z88.8 Allergy status to other drugs, medicaments and biological substances; Z88.1 Allergy status to other antibiotic agents; Z88.6 Allergy status to analgesic agent; R00.0 Tachycardia, unspecified
CPT/HCPCS: 99283; 73130; 73110; 29125; A9270 ×2

== ENCOUNTER 2020-06-20 10:48 | Emergency (ER) | payer MEDICARE, MEDICAID ==
[2020-06-20] MEDS ORDERED: OXYCODONE-ACETAMINOPHEN 5-325 MG TABLET PO ONE (11:27)
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
--- NOTE | 2020-06-20 12:20 | RADIOLOGY REPORT (SQ) ---
EXAM DESCRIPTION: WRIST RIGHT 3 VIEWS IMAGES COMPLETED DATE/TIME: 06/20/2020 11:49 am REASON FOR STUDY: injury, pain COMPARISON: None. EXAM PARAMETERS: NUMBER OF VIEWS: Three views. TECHNIQUE: AP, lateral and oblique radiographic images acquired of the right wrist. LIMITATIONS: None. FINDINGS: MINERALIZATION: Normal. BONES: No acute fracture or dislocation. No worrisome bone lesions. JOINTS: No effusion. SOFT TISSUES: No significant soft tissue swelling. No radiopaque foreign body. OTHER: No other significant finding. IMPRESSION: No acute fracture or dislocation. TECHNICAL DOCUMENTATION: JOB ID: [id number] 2010 [email or web address]- All Rights Reserved Reading location - IP/workstation name: [email or web address]
== END 2020-06-20 12:52 | disposition home or self-care (01) ==
LOC: ER 10:48
DX: S69.91XA Unspecified injury of right wrist, hand and finger(s), initial encounter (principal); X50.0XXA Overexertion from strenuous movement or load, initial encounter; Y93.89 Activity, other specified; Y92.003 Bedroom of unspecified non-institutional (private) residence as the place of occurrence of the external cause; F17.200 Nicotine dependence, unspecified, uncomplicated; I10 Essential (primary) hypertension; F12.10 Cannabis abuse, uncomplicated; J44.9 Chronic obstructive pulmonary disease, unspecified
CPT/HCPCS: 99283; 73110; A9270

== ENCOUNTER 2020-07-05 09:17 | Emergency (ER) | payer MEDICARE, MEDICAID ==
[2020-07-05] MEDS ORDERED: OXYCODONE-ACETAMINOPHEN 5-325 MG TABLET PO ONE (11:08)
[2020-07-05] MEDS ORDERED: PREDNISONE 20 MG TABLET PO ONE (11:08)
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
[2020-07-05 11:43] VITALS: BP 192/96
== END 2020-07-05 11:43 | disposition home or self-care (01) ==
LOC: ER 09:17
DX: M10.9 Gout, unspecified (principal); E66.9 Obesity, unspecified; J44.9 Chronic obstructive pulmonary disease, unspecified; F17.200 Nicotine dependence, unspecified, uncomplicated; F12.10 Cannabis abuse, uncomplicated; I10 Essential (primary) hypertension; Z88.8 Allergy status to other drugs, medicaments and biological substances; Z88.1 Allergy status to other antibiotic agents; Z88.6 Allergy status to analgesic agent
CPT/HCPCS: 99284; A9270 ×2; J7512

== ENCOUNTER 2020-07-13 09:50 | Emergency (ER) | payer MEDICARE, MEDICAID ==
[2020-07-13 11:08] LABS: APPEARANCE,URINE CLEAR; BILIRUBIN,URINE NEGATIVE (NEGATIVE); COLOR,URINE YELLOW; GLUCOSE, URINE NEGATIVE (NEGATIVE); KETONES,URINE NEGATIVE (NEGATIVE); LEUKOCYTE ESTERASE,URINE NEGATIVE (NEGATIVE); NITRITE,URINE NEGATIVE (NEGATIVE); PROTEIN,URINE NEGATIVE (NEGATIVE); URINE SPECIFIC GRAVITY 1.021
[2020-07-13 11:20] LABS: A TYPE INFLUENZA AG NEGATIVE (NEGATIVE); B INFLUENZA AG NEGATIVE (NEGATIVE)
[2020-07-13 11:40] LABS: ALBUMIN 4.2 g/dL (3.5-5.0); ALKALINE PHOSPHATASE 89 U/L (38-126); ANION GAP 10 (5-19); ASPARTATE AMINO TRANSFERASE 59 U/L (17-59); BILIRUBIN,DIRECT 0.4 mg/dL (0.0-0.4); BILIRUBIN,TOTAL 0.5 mg/dL (0.2-1.3); BLOOD UREA NITROGEN 16 mg/dL (7-20); CALCIUM 9.2 mg/dL (8.4-10.2); CARBON DIOXIDE 27 mmol/L (22-30); CHLORIDE 99 mmol/L (98-107); CREATINE KINASE 150 U/L (55-170); GLUCOSE 129 mg/dL (75-110); POTASSIUM 3.9 mmol/L (3.6-5.0); TOTAL PROTEIN 6.7 g/dL (6.3-8.2)
[2020-07-13 11:48] LABS: CREATINE KINASE MB 4.19 ng/mL (<4.55)
--- NOTE | 2020-07-13 11:50 | RADIOLOGY REPORT (SQ) ---
EXAM DESCRIPTION: CHEST SINGLE VIEW IMAGES COMPLETED DATE/TIME: 07/13/2020 11:37 am REASON FOR STUDY: Chest pain COMPARISON: 03/13/2020 EXAM PARAMETERS: NUMBER OF VIEWS: One view. TECHNIQUE: Single frontal radiographic view of the chest acquired. RADIATION DOSE: NA LIMITATIONS: None. FINDINGS: LUNGS AND PLEURA: No opacities, masses or pneumothorax. No pleural effusion. MEDIASTINUM AND HILAR STRUCTURES: No masses. Contour normal. HEART AND VASCULAR STRUCTURES: Heart normal in size. Normal vasculature. BONES: No acute findings. HARDWARE: None in the chest. Cervical fusion hardware OTHER: No other significant finding. IMPRESSION: NO ACUTE RADIOGRAPHIC FINDING IN THE CHEST. TECHNICAL DOCUMENTATION: JOB ID: [id number] 2010 [employer]- All Rights Reserved Reading location - IP/workstation name: [email or web address]
[2020-07-13 12:13] LABS: TROPONIN I < 0.012 ng/mL
[2020-07-13] MEDS ORDERED: NORMAL SALINE 1000 ML 1,000 ML IV ONE (13:07)
[2020-07-13] MEDS ORDERED: ONDANSETRON HCL INJ/PF 4 MG/2 ML SDV IV ONE (13:08)
[2020-07-13] MEDS ORDERED: MECLIZINE HCL 25 MG TABLET PO ONE (13:09)
[2020-07-13 13:34] LABS: ABSOLUTE BASOPHILS # (AUTO) 0.1 10^3/uL (0.0-0.2); ABSOLUTE LYMPHOCYTES (AUTO) 1.2 10^3/uL (0.5-4.7); ABSOLUTE MONOCYTES (AUTO) 0.6 10^3/uL (0.1-1.4); ABSOLUTE NEUT (AUTO) 5.2 10^3/uL (1.7-8.2); BASOPHILS % (AUTO) 0.9 % (0-2); EOSINOPHILS % (AUTO) 0.7 % (0-6); HEMATOCRIT 42.3 % (37.9-51.0); HEMOGLOBIN 14.8 g/dL (13.5-17.0); LYMPHOCYTES % (AUTO) 17.4 % (13-45); MEAN CORPUSCULAR HEMOGLOBIN 33.9 pg (27.0-33.4); MEAN CORPUSCULAR HGB CONC 34.8 g/dL (32.0-36.0); MEAN CORPUSCULAR VOLUME 97 fl (80-97); MONOCYTES % (AUTO) 8.6 % (3-13); PLATELET COUNT 217 10^3/uL (150-450); RED BLOOD COUNT 4.35 10^6/uL (4.35-5.55); RED CELL DISTRIBUTION WIDTH 14.1 % (11.5-14.0); SEGMENTED NEUTROPHILS % (AUTO) 72.4 % (42-78); TOTAL CELLS COUNTED % (AUTO) 100 %; WHITE BLOOD COUNT 7.2 10^3/uL (4.0-10.5)
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
[2020-07-13] MEDS ORDERED: ACETAMINOPHEN 325 MG TABLET PO ONE (15:19)
[2020-07-13 15:25] VITALS: BP 163/100
--- NOTE | 2020-07-13 17:26 | EKG REPORT ---
SEVERITY:- BORDERLINE ECG - SINUS TACHYCARDIA PROBABLE LEFT ATRIAL ABNORMALITY BORDERLINE T ABNORMALITIES, ANT-LAT LEADS : Confirmed by: David Up 13-Jul-2020 17:25:36
== END 2020-07-13 15:30 | disposition home or self-care (01) ==
LOC: ER 09:50
DX: R53.1 Weakness (principal); I10 Essential (primary) hypertension; R07.9 Chest pain, unspecified; R11.0 Nausea; J44.9 Chronic obstructive pulmonary disease, unspecified; R05 Cough; R00.0 Tachycardia, unspecified; R42 Dizziness and giddiness; F17.210 Nicotine dependence, cigarettes, uncomplicated; Z87.01 Personal history of pneumonia (recurrent); Z88.8 Allergy status to other drugs, medicaments and biological substances; Z88.1 Allergy status to other antibiotic agents; Z88.6 Allergy status to analgesic agent; Z20.828 Contact with and (suspected) exposure to other viral communicable diseases
CPT/HCPCS: 93005; 99285; 96361; 96374; 36415; 87070; 82553; 87880; 82550; 85025; 80053; 81001; 84484; 87804; 71045; 93010; U0003; A9270; J2405; J7030; C9803; 87635

== ENCOUNTER 2020-07-27 10:09 | Emergency (ER) | payer MEDICARE, MEDICAID ==
--- NOTE | 2020-07-27 11:29 | RADIOLOGY REPORT (SQ) ---
EXAM DESCRIPTION: FOOT RIGHT COMPLETE IMAGES COMPLETED DATE/TIME: 07/27/2020 11:19 am REASON FOR STUDY: right foot pain/swelling COMPARISON: AP, lateral common oblique views of the right foot from 05/19/2009. NUMBER OF VIEWS: Three views. TECHNIQUE: AP, lateral and oblique radiographic images acquired of the right foot. LIMITATIONS: None. FINDINGS: MINERALIZATION: Normal. BONES: The lucent lesion at the medial margin of the 1st MTP joint could represent a periarticular er osion. The 1st MTP joint space is preserved. There is no fracture dislocation. JOINTS: The normal tarsometatarsal alignment is preserved. SOFT TISSUES: Soft tissue swelling around the 1st MTP joint. OTHER: No other significant finding. IMPRESSION: The lucent lesion at the medial margin of the 1st MTP joint could represent a periarticu lar erosion. Correlate with clinical findings to exclude gout. TECHNICAL DOCUMENTATION: JOB ID: [id number] 2010 [employer]- All Rights Reserved Reading location - IP/workstation name: [email or web address]
[2020-07-27 12:57] VITALS: BP 174/101
[2020-07-27] MEDS ORDERED: OXYCODONE-ACETAMINOPHEN 5-325 MG TABLET PO ONE (13:02)
[2020-07-27] MEDS ORDERED: COLCHICINE 0.6 MG TABLET PO ONE (13:02)
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
== END 2020-07-27 13:11 | disposition home or self-care (01) ==
LOC: ER 10:09
DX: M10.9 Gout, unspecified (principal); M25.571 Pain in right ankle and joints of right foot; I10 Essential (primary) hypertension; J44.9 Chronic obstructive pulmonary disease, unspecified; F17.200 Nicotine dependence, unspecified, uncomplicated
CPT/HCPCS: 99284; 36415; 84550; 73630; A9270 ×2

== ENCOUNTER 2020-09-15 11:15 | Emergency (ER) | payer MEDICARE, MEDICAID ==
[2020-09-15 11:29] VITALS: BP 133/82
[2020-09-15] MEDS ORDERED: IPRATROPIUM/ALBUTEROL 0.5-2.5 MG/3 ML AMPUL NEB ONE (12:16)
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
[2020-09-15] MEDS ORDERED: NORMAL SALINE 1000 ML 1,000 ML IV ONE (12:19)
== END 2020-09-15 13:39 | disposition left against medical advice (07) ==
LOC: ER 11:15
DX: J44.9 Chronic obstructive pulmonary disease, unspecified (principal); R06.02 Shortness of breath; R05 Cough; R42 Dizziness and giddiness; R00.0 Tachycardia, unspecified; F17.200 Nicotine dependence, unspecified, uncomplicated; I10 Essential (primary) hypertension; Z87.01 Personal history of pneumonia (recurrent); Z88.8 Allergy status to other drugs, medicaments and biological substances; Z88.1 Allergy status to other antibiotic agents; Z88.6 Allergy status to analgesic agent; Z53.20 Procedure and treatment not carried out because of patient's decision for unspecified reasons
CPT/HCPCS: 99281

== ENCOUNTER 2020-11-24 12:14 | Emergency (ER) | payer MEDICARE, MEDICAID ==
[2020-11-24 12:27] VITALS: BP 143/87
[2020-11-24] MEDS ORDERED: IPRATROPIUM/ALBUTEROL 0.5-2.5 MG/3 ML AMPUL NEB ONE (12:52)
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
[2020-11-24 13:52] LABS: ABSOLUTE BASOPHILS # (AUTO) 0.1 10^3/uL (0.0-0.2); ABSOLUTE LYMPHOCYTES (AUTO) 1.1 10^3/uL (0.5-4.7); ABSOLUTE MONOCYTES (AUTO) 0.2 10^3/uL (0.1-1.4); ABSOLUTE NEUT (AUTO) 7.6 10^3/uL (1.7-8.2); BASOPHILS % (AUTO) 0.8 % (0-2); EOSINOPHILS % (AUTO) 0.4 % (0-6); HEMATOCRIT 44.2 % (37.9-51.0); HEMOGLOBIN 14.9 g/dL (13.5-17.0); LYMPHOCYTES % (AUTO) 12.2 % (13-45); MEAN CORPUSCULAR HEMOGLOBIN 34.7 pg (27.0-33.4); MEAN CORPUSCULAR HGB CONC 33.7 g/dL (32.0-36.0); MEAN CORPUSCULAR VOLUME 103 fl (80-97); MONOCYTES % (AUTO) 1.9 % (3-13); PLATELET COUNT 277 10^3/uL (150-450); RED BLOOD COUNT 4.29 10^6/uL (4.35-5.55); RED CELL DISTRIBUTION WIDTH 13.9 % (11.5-14.0); SEGMENTED NEUTROPHILS % (AUTO) 84.7 % (42-78); TOTAL CELLS COUNTED % (AUTO) 100 %
--- NOTE | 2020-11-24 14:01 | RADIOLOGY REPORT (SQ) ---
EXAM DESCRIPTION: CHEST SINGLE VIEW IMAGES COMPLETED DATE/TIME: 11/24/2020 1:40 pm REASON FOR STUDY: sob, chest congestion COMPARISON: 07/13/2020. EXAM PARAMETERS: NUMBER OF VIEWS: One view. TECHNIQUE: Single frontal radiographic view of the chest acquired. RADIATION DOSE: NA LIMITATIONS: None. FINDINGS: LUNGS AND PLEURA: No opacities, masses or pneumothorax. No pleural effusion. MEDIASTINUM AND HILAR STRUCTURES: No masses. Contour normal. HEART AND VASCULAR STRUCTURES: Heart normal in size. Normal vasculature. BONES: No acute findings. Left lower rib fractures with callus. HARDWARE: None in the chest. Hardware in the cervical spine. OTHER: No other significant finding. IMPRESSION: HEALING LEFT LOWER RIB FRACTURES. OTHERWISE NO ACUTE RADIOGRAPHIC FINDING IN THE CHEST. TECHNICAL DOCUMENTATION: JOB ID: [id number] 2010 [employer]- All Rights Reserved Reading location - IP/workstation name: [email or web address]
[2020-11-24 14:13] LABS: ALBUMIN 4.4 g/dL (3.5-5.0); ALKALINE PHOSPHATASE 100 U/L (38-126); ANION GAP 9 (5-19); ASPARTATE AMINO TRANSFERASE 85 U/L (17-59); BILIRUBIN,DIRECT 0.4 mg/dL (0.0-0.4); BILIRUBIN,TOTAL 0.7 mg/dL (0.2-1.3); BLOOD UREA NITROGEN 19 mg/dL (7-20); CALCIUM 10.1 mg/dL (8.4-10.2); CARBON DIOXIDE 27 mmol/L (22-30); CHLORIDE 101 mmol/L (98-107); GLUCOSE 141 mg/dL (75-110); POTASSIUM 5.4 mmol/L (3.6-5.0); TOTAL PROTEIN 7.3 g/dL (6.3-8.2)
[2020-11-24 14:50] LABS: APPEARANCE,URINE SLIGHTLY-CLOUDY; BILIRUBIN,URINE MODERATE (NEGATIVE); COLOR,URINE AMBER; GLUCOSE, URINE NEGATIVE (NEGATIVE); KETONES,URINE NEGATIVE (NEGATIVE); LEUKOCYTE ESTERASE,URINE NEGATIVE (NEGATIVE); NITRITE,URINE NEGATIVE (NEGATIVE); PROTEIN,URINE 30 mg/dL (NEGATIVE); URINE SPECIFIC GRAVITY 1.043
[2020-11-24] MEDS ORDERED: MORPHINE SULFATE 10 MG/ML INJ IV ONE (14:57)
[2020-11-24] MEDS ORDERED: ONDANSETRON HCL INJ/PF 4 MG/2 ML SDV IV ONE (14:57)
[2020-11-24] MEDS ORDERED: NORMAL SALINE 1000 ML 1,000 ML IV ONE (14:58)
[2020-11-24 15:05] LABS: A TYPE INFLUENZA AG NEGATIVE (NEGATIVE); B INFLUENZA AG NEGATIVE (NEGATIVE)
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
--- NOTE | 2020-11-24 18:33 | EKG REPORT ---
SEVERITY:- NORMAL ECG - SINUS RHYTHM : Confirmed by: Tushar Wilkes MD 24-Nov-2020 18:33:13
== END 2020-11-24 17:02 | disposition home or self-care (01) ==
LOC: ER 12:14
DX: J44.1 Chronic obstructive pulmonary disease with (acute) exacerbation (principal); E87.5 Hyperkalemia; R50.9 Fever, unspecified; R05 Cough; R06.02 Shortness of breath; R19.7 Diarrhea, unspecified; R11.0 Nausea; R09.81 Nasal congestion; R51.9 Headache, unspecified; F17.200 Nicotine dependence, unspecified, uncomplicated; I10 Essential (primary) hypertension; Z79.899 Other long term (current) drug therapy; Z87.01 Personal history of pneumonia (recurrent); Z88.8 Allergy status to other drugs, medicaments and biological substances; Z88.1 Allergy status to other antibiotic agents; Z88.6 Allergy status to analgesic agent; Z20.822 Contact with and (suspected) exposure to COVID-19
CPT/HCPCS: 93005; 94640; 99285; 96361; 96374; 96375; 36415; 85025; 80053; 81001; 84484; 87804; 71045; 93010; U0003; J2270; J2405; J7030; C9803; 87635